=== PATIENT | male | born 1965 | race Caucasian/White ===

== ENCOUNTER 2016-11-13 06:40 | Day surgery (SDC) | payer OTHER ==
[2016-11-09 12:03] VITALS: BMI 30.8
[~2016-11-13 06:40] MED LIST: LIDOCAINE HCL 1% PRESERVATIVE FREE - 30ML VIAL IO ONE; LIDOCAINE HCL 4% PRESERVE-FREE 5 ML AMP TP ONE
[2016-11-13 07:06] VITALS: PULSE 65; TEMP 97.8
[2016-11-13] MEDS ORDERED: FLURBIPROFEN 0.03% OPHTH SOLN 2.5 ML BOTTLE ONE (07:18)
[2016-11-13] MEDS ORDERED: CYCLOPENTOLATE HCL 1% OPHTH SOLN 2 ML BOTTLE ONE (07:19)
[2016-11-13] MEDS ORDERED: CIPROFLOXACIN 0.3% EYE DROPS 5 ML BOTTLE ONE (07:19)
[2016-11-13] MEDS ORDERED: TROPICAMIDE 1% OPHTH SOLN 15 ML BOTTLE ONE (07:19)
[2016-11-13] MEDS ORDERED: PHENYLEPHRINE 2.5% OPHTH SOLN 15 ML BOTTLE ONE (07:19)
[2016-11-13] MEDS ORDERED: EPINEPHrine/PF 1 MG/1 ML (1:1,000) AMPULE ONE (07:22)
[2016-11-13] MEDS ORDERED: LIDOCAINE HCL 4% PRESERVE-FREE 5 ML AMP ONE (07:22)
[2016-11-13] MEDS ORDERED: POVIDONE-IODINE 5% OPHTHALMIC PREP 30 ML SOLUTION ONE (07:23)
[2016-11-13] MEDS ORDERED: BSS (NA/CA/MG/K) BALANCED SALT SOLUTION OPHTH SOLN 15 ML BOTTLE ONE (07:23)
[2016-11-13] MEDS: CYCLOPENTOLATE HCL 1% OPHTH SOLN 2 ML BOTTLE OP SCH ×2 (07:26→07:33)
[2016-11-13] MEDS: CIPROFLOXACIN HCL 0.3% OPHTH 2.5ML BOTTLE OP SCH ×2 (07:26→07:33)
[2016-11-13] MEDS ORDERED: LIDOCAINE HCL/PF 1% SDV 5ML VIAL ONE (07:26)
[2016-11-13] MEDS: PHENYLEPHRINE 2.5% OPHTH SOLN 15 ML BOTTLE OP SCH ×2 (07:27→07:33)
[2016-11-13] MEDS: FLURBIPROFEN 0.03% OPHTH SOLN 2.5 ML BOTTLE OP SCH ×2 (07:27→07:33)
[2016-11-13] MEDS: TROPICAMIDE 1% OPHTH SOLN 15 ML BOTTLE OP SCH ×2 (07:27→07:34)
[2016-11-13] MEDS ORDERED: LIDOCAINE HCL 4% PRESERVE-FREE 5 ML AMP TP ONE (08:19)
[2016-11-13] MEDS ORDERED: POVIDONE-IODINE 5% OPHTHALMIC PREP 30 ML SOLUTION OD ONE (08:20)
[2016-11-13] MEDS ORDERED: LIDOCAINE HCL 1% PRESERVATIVE FREE - 30ML VIAL IO ONE (08:24)
[2016-11-13] MEDS ORDERED: CHONDROITIN SU A/HYALUR SOD 1 KIT IO ONE ×2 (08:26→08:42)
[2016-11-13 10:34] VITALS: BP 107/65
--- NOTE | 2016-11-14 08:41 | SPEC ---
DATE OF OPERATION: 11/13/2016 PREOPERATIVE DIAGNOSIS: Cataract, right eye. POSTOPERATIVE DIAGNOSIS: Cataract, right eye. OPERATION: Planned phacoemulsification with posterior chamber lens implantation, right eye. SURGEON: Meli Roth M.D. WINDOW SYSTEMS ADMINISTRATOR: None. ANESTHESIA: Topical. COMPLICATIONS: None. PROCEDURE: The patient was taken to the operating room and anesthesia began with intravenous fluids and sedation. The patient then received topical anesthesia on the right eye. The patient was prepped and draped in the usual manner for sterile ophthalmic surgery. A speculum was inserted into the right eye. A self-sealing stab incision was made at the 3:00 and 10:00 positions. Viscoat was inserted into the anterior chamber. Using a 2.65 mm keratome, a self-sealing incision was made in temporal location into the anterior chamber. A 360-degree continuous capsulorrhexis was then performed. The nucleus was dislocated with hydrodissection. The nucleus was then removed from the eye with phacoemulsification with posterior capsule remaining intact. Irrigation and aspiration removed the remaining cortex from the eye. The capsule was polished. A posterior chamber lens model [id number] diopters was inserted in the bag and well centered. The remaining Viscoat was removed from the eye. There were no sutures placed. The wound was self-sealing. Stromal hydration was performed for increased insurance of wound closure. The patient tolerated and completed the procedure in an uncomplicated fashion and went to the ambulatory unit in stable condition. MELI ROTH M.D. MIGUELINA/[id number]
== END 2016-11-13 10:20 | disposition home or self-care (01) ==
LOC: JASU-SURG 06:40
PROVIDERS: ATTEND Ophthalmology
PROC: 08RK3JZ Replacement of Left Lens with Synthetic Substitute, Percutaneous Approach (ICD-10-PCS; principal; 2016-11-13 08:00)
DX: H26.9 Unspecified cataract (principal)

== ENCOUNTER 2018-09-29 19:02 | Inpatient (IN) | payer OTHER ==
--- NOTE | 2018-09-29 19:18 | PDOC ---
History of Present Illness - General Chief Complaint: SIRS, Suspected/Possible Stated Complaint: FLU LIKE SYMPTOM Time Seen by Provider: 09/29/18 19:17 Past History - Past Medical History Allergies/Adverse Reactions: Allergies Allergy/AdvReac Type Severity Reaction Status Date / Time amlodipine besylate Allergy Severe Closed Verified 09/29/18 19:14 [From [facility]] throat/Swollen lips Home Medications: Ambulatory Orders Amiodarone HCl 200 mg PO DAILY 10/12/16 Atorvastatin Ca [Lipitor] 40 mg PO HS 10/12/16 Carvedilol [Coreg] 25 mg PO BID 10/12/16 Digoxin 125 mcg PO DAILY 10/12/16 Furosemide [Lasix] 80 mg PO DAILY 10/12/16 Losartan Potassium 100 mg PO DAILY 10/12/16 Methotrexate [Mexate -] 2.5 mg PO Q7D 10/12/16 Rivaroxaban [Xarelto -] 15 mg PO DAILY 10/12/16 Spironolactone 50 mg PO BID 10/12/16 predniSONE [Deltasone -] 2.5 mg PO DAILY 10/12/16 Insulin Degludec [Tresiba Flextouch U-100] 45 unit SQ DAILY 11/13/16 Insulin Glulisine [Apidra Solostar] 20 unit SQ UTDICT 11/13/16 Anemia: No Asthma: No Cancer: No Cardiac Disorders: Yes (HEART ATTACK PER PT) CVA: No COPD: No CHF: (NON-ISCHEMIC CARDIOMYOPATHY) Dementia: No Diabetes: Yes GI Disorders: No Disorders: No HTN: Yes (MITRAL REGURG,PVCS WITH OCC NSVT) Hypercholesterolemia: Yes (ICD 11/12,ATRIAL FIB) Liver Disease: No Seizures: No Thyroid Disease: No - Surgical History Abdominal Surgery: No Appendectomy: No Cardiac Surgery: Yes (PACEMAKER-PT STATED HE HAS A PACEMAKER-UNAWARE OF ICD) Cholecystectomy: No Neurologic Surgery: No Orthopedic Surgery: No - Suicide/Smoking/Psychosocial Hx Smoking History: Never smoked Hx Alcohol Use: No Drug/Substance Use Hx: No Substance Use Type: None Hx Substance Use Treatment: No *Physical Exam - Vital Signs Last Vital Signs Temp Pulse Resp BP Pulse Ox 99.3 F 120 H 24 H 83/64 L 95 09/29/18 19:08 09/29/18 19:08 09/29/18 19:08 09/29/18 19:08 09/29/18 19:08 Moderate Sedation - Procedure Monitoring Vital Signs: Procedure Monitoring Vital Signs Temperature 99.3 F 09/29/18 19:08 Pulse Rate 120 H 09/29/18 19:08 Respiratory Rate 24 H 09/29/18 19:08 Blood Pressure 83/64 L 09/29/18 19:08 O2 Sat by Pulse Oximetry (%) 95 09/29/18 19:08 *DC/Admit/Observation/Transfer - Referrals Referrals: Portillo Ashford MD [Primary Care Provider] - - Patient Instructions - Post Discharge Activity
--- NOTE | 2018-09-29 19:31 | PDOC ---
Attending Attestation - Resident Resident Name: Stoney Limon - ED Attending Attestation I have performed the following: I have examined & evaluated the patient, The case was reviewed & discussed with the resident, I agree w/resident's findings & plan, Exceptions are as noted - HPI HPI: 09/29/18 19:30 53-year-old male presents with 1 week of flulike symptoms. He has complaint of nausea, vomiting, cough and shortness of breath -Insulin-dependent diabetic and states his glucose has been high - Physicial Exam PE: 09/29/18 19:31 well nourished ,well-developed 53-year-old male presents with low-grade fever, hypotension and tachycardia head ncat eyes jeffy eomi neck supple lungs scattered wheezing cvs tachycardia abd left abd tenderenss ext no pitting edema skin warm and dry neuro alert,moving all extremities psych appropriate 09/29/18 19:33 09/29/18 19:51 09/29/18 19:56 - Medical Decision Making 09/29/18 20:14 Differential diagnosis includes sepsis, influenza, pneumonia, DKA, ACS. Sepsis workup w IV fluids, lactic acid, blood culture, urine culture and flu swabs sent. Chest x-ray, troponin, chemistry, CBC pending EKG is sinus tachycardia at 118 bpm, left bundle-branch block. I can find no priors for comparison 09/29/18 22:14 53 yo male has not been feeling well for past 2 weeks . He has not been able to eat but now states he is hungry -he had complaint of bodyaches,headache cough,fever,nausea,vomiting 09/29/18 22:42 with further questioning the family did say he had CKD and was followed by Dr Dangelo Wagoner -spoke with Dr Martin who said that this pt does have CKD -in reviewing an old surgical chart from 2017 it mentions a creatinine of 2.7 09/30/18 00:12 UA negative cxr no obvious infiltrates, ct chest bilateral nodules /consolidations negative strep negative influenza cbc platelets only 42,000 and wbc 2.1, hgb=9.8. He has a history of anemia 09/30/18 01:19 ct scan of chest revealed bilateral lung nodules/atypical infection.There are small nodular densities left upper, left lower, right middle and right lower lobes with several small consolidations,probably atypical infection -enlarged mediastinal lymph nodes, no pleural effusions,left chest ICD CT scan abd/pelvis: No sbo, no free fluid, no free air, normal appendix. no ureterolithoasis or obstructive uropathy. Unremarkab;le pancreas,Gallbladder sludge,small umbilical and infraumbilical hernias containing fat -despite 2 liter of IVF the pt remains hypotensive and a central line IJ was placed to give pressors if needed.Case discussed w Dr Zapata and pt to be admitted ICU pt admitted to ICU 09/30/18 01:43
[2018-09-29] MEDS ORDERED: ALBUTEROL SO4 2.5/IPRATROPIUM 0.5 INH SOL 3 ML VIAL.NEB. NEB ONE ×2 (19:43→19:57)
[2018-09-29] MEDS ORDERED: SODIUM CHLORIDE 1,000 ML IV STA (19:56)
[2018-09-29] MEDS ORDERED: ONDANSETRON 4 MG/2 ML VIAL IVPUSH ONE (19:56)
[2018-09-29 20:01] LABS: BASO % 0.8 % (0-2.0); EOS % 0.9 % (0-4.5); HEMATOCRIT 28.7 % (35.4-49); HEMOGLOBIN 9.8 GM/dL (11.7-16.9); LYMPH % 19.5 % (8-40); MCH 32.9 pg (25.7-33.7); MCHC 34.2 g/dl (32.0-35.9); MEAN CELL VOLUME 96.3 fl (80-96); MEAN PLT VOLUME 8.3 fl (7.5-11.1); MONO % 3.4 % (3.8-10.2); NEUT % 75.4 % (42.8-82.8); PLATELET COUNT 42 K/MM3 (134-434); RBC 2.98 M/mm3 (4.00-5.60); WHITE BLOOD COUNT 2.1 K/mm3 (4.0-10.0)
[2018-09-29] MEDS ORDERED: ONDANSETRON 4 MG/2 ML VIAL ONE (20:05)
[2018-09-29 20:08] LABS: VENOUS PH 7.28 (7.32-7.42); VENOUS PO2 38.9 mmHg (28-48)
[2018-09-29] MEDS ORDERED: ACETAMINOPHEN 1000 MG/100 ML VIAL (NON FORMULARY) IVPB ONE (20:09)
[2018-09-29] MEDS ORDERED: ACETAMINOPHEN INJECTION 100 ML IVPB ONE (20:12)
--- NOTE | 2018-09-29 20:12 | PDOC ---
History of Present Illness <DavidJamebrant Powers - Last Filed: 09/30/18 02:08> - General History Source: Patient Exam Limitations: No Limitations - History of Present Illness Initial Comments: 09/29/18 20:07 53 yo male pmh of IDDM, paroxsysmal Afib (on xeralto, pace maker) HTN, HLD, CHF , CKD (last known Cr 2.7 from 2017) presents to the ED for 2 weeks of non productive cough, fevers, diffuse body aches, headaches, NB/NB vomiting, loose stools and poor appetite. States the symptoms started and persisted with the same intensity over 2 weeks with poor appetite and only admits to eating a few times with associated abdominal bloating after meals. States he is in the ED only because his forced him to come. Pt denies recent travel or sick contacts. Denies CP, difficulty breathing, abdominal tenderness <Stoney Limon - Last Filed: 10/16/18 00:26> - General Chief Complaint: SIRS, Suspected/Possible Stated Complaint: FLU LIKE SYMPTOM Time Seen by Provider: 09/29/18 19:17 Past History <DavidJamebrant Powers - Last Filed: 09/30/18 02:08> - Past Medical History Anemia: No Asthma: No Cancer: No Cardiac Disorders: Yes (HEART ATTACK PER PT) CVA: No COPD: No CHF: (NON-ISCHEMIC CARDIOMYOPATHY) Dementia: No Diabetes: Yes GI Disorders: No Disorders: No HTN: Yes (MITRAL REGURG,PVCS WITH OCC NSVT) Hypercholesterolemia: Yes (ICD 11/12,ATRIAL FIB) Liver Disease: No Seizures: No Thyroid Disease: No - Surgical History Abdominal Surgery: No Appendectomy: No Cardiac Surgery: Yes (PACEMAKER-PT STATED HE HAS A PACEMAKER-UNAWARE OF ICD) Cholecystectomy: No Neurologic Surgery: No Orthopedic Surgery: No - Suicide/Smoking/Psychosocial Hx Smoking History: Never smoked Information on smoking cessation initiated: No Hx Alcohol Use: No Drug/Substance Use Hx: No Substance Use Type: None Hx Substance Use Treatment: No <Stoney Limon - Last Filed: 10/16/18 00:26> - Past Medical History Allergies/Adverse Reactions: Allergies Allergy/AdvReac Type Severity Reaction Status Date / Time amlodipine besylate Allergy Severe Closed Verified 09/29/18 19:14 [From [facility]] throat/Swollen lips Home Medications: Ambulatory Orders Amiodarone HCl 200 mg PO DAILY 10/12/16 Carvedilol [Coreg] 25 mg PO BID 10/12/16 Rivaroxaban [Xarelto] 15 mg PO DAILY 10/12/16 Spironolactone 25 mg PO DAILY 10/12/16 Insulin Degludec [Tresiba Flextouch U-100] 40 unit SQ DAILY 11/13/16 Colchicine 0.6 mg PO DAILY 09/30/18 Rosuvastatin [Crestor -] 10 mg PO DAILY 09/30/18 Sacubitril/Valsartan [Entresto 49 mg-51 mg Tablet] 1 each PO BID 09/30/18 Doxycycline Hyclate [Vibramycin -] 100 mg PO BID@1000,1800 #14 capsule 10/06/18 Polyethylene Glycol 3350 [Miralax 119 gm Btl -] 17 gm PO BID bottle 10/06/18 Rosuvastatin [Crestor -] 10 mg PO HS tablet 10/06/18 Review of Systems - Review of Systems Constitutional: Yes: Chills, Fever, Malaise, Other (muscle aches ) HEENTM: Yes: Other (head) ABD/GI: Yes: Diarrhea, Nausea, Poor Appetite, Vomiting. No: Constipated : No: Burning, Dysuria, Frequency, Flank Pain, Hematuria, Incontinence, Pain Integumentary: No: Bruising, Rash Neurological: No: Numbness, Paresthesia, Weakness <Stoney Limon - Last Filed: 10/16/18 00:26> *Physical Exam - Vital Signs Last Vital Signs Temp Pulse Resp BP Pulse Ox 103.9 F H 92 H 20 85/60 L 98 09/29/18 20:32 09/30/18 00:17 09/30/18 00:17 09/30/18 00:17 09/30/18 00:17 <Iman Hernandez - Last Filed: 09/30/18 02:08> - Vital Signs Last Vital Signs Temp Pulse Resp BP Pulse Ox 99.3 F 120 H 18 87/63 L 97 09/29/18 19:08 09/29/18 20:03 09/29/18 20:03 09/29/18 20:03 09/29/18 20:03 - Physical Exam General Appearance: Yes: Nourished, Appropriately Dressed, Apparent Distress ( lethargic and somnolent). No: Alcohol on Breath HEENT: positive: EOMI. negative: ROLA, Scleral Icterus (R), Scleral Icterus (L) , Tonsillar Exudate, Tonsillar Erythema, TM Erythema, Excessive drooling Respiratory/Chest: positive: Wheezing. negative: Respiratory Distress, Accessory Muscle Use, Crackles Cardiovascular: positive: Regular Rhythm, S1, S2, Tachycardia. negative: Edema , JVD, Murmur Vascular Pulses: Dorsalis-Pedis (R): 3+, Doralis-Pedis (L): 3+ Gastrointestinal/Abdominal: positive: Normal Bowel Sounds, Flat, Soft. negative : Tender, Pulsatile Mass, Distended, Guarding, Rebound, Tenderness Musculoskeletal: positive: Normal Inspection Integumentary: positive: Normal Color, Dry, Warm Neurologic: positive: Fully Oriented, Alert, Normal Mood/Affect, Normal Response <Stoney Limon - Last Filed: 10/16/18 00:26> Moderate Sedation - Procedure Monitoring Vital Signs: Procedure Monitoring Vital Signs Temperature 103.9 F H 09/29/18 20:32 Pulse Rate 92 H 09/30/18 00:17 Respiratory Rate 20 09/30/18 00:17 Blood Pressure 85/60 L 09/30/18 00:17 O2 Sat by Pulse Oximetry (%) 98 09/30/18 00:17 <Iman Hernandez - Last Filed: 09/30/18 02:08> - Procedure Monitoring Vital Signs: Procedure Monitoring Vital Signs Temperature 99.3 F 09/29/18 19:08 Pulse Rate 120 H 09/29/18 20:03 Respiratory Rate 18 09/29/18 20:03 Blood Pressure 87/63 L 09/29/18 20:03 O2 Sat by Pulse Oximetry (%) 97 09/29/18 20:03 <Stoney Limon - Last Filed: 10/16/18 00:26> Procedures - Central Line Central Line Lumen: triple Central Line Position: internal jugular (R) Anesthesia: 1% Lidocaine Complications: none Post Central Line Insertion: sutured, good blood return, position confirmed w/ CXR <Stoney Limon - Last Filed: 10/16/18 00:26> ED Treatment Course - LABORATORY CBC & Chemistry Diagram: 09/29/18 19:50 02/18/19 19:50 - ADDITIONAL ORDERS Additional order review: Laboratory Results 09/30/18 09/29/18 09/29/18 00:50 22:00 22:00 PT with INR INR PTT (Actin FS) Anticoagulation Therapy No Result Required. Puncture Site Right radial ABG pH 7.38 ABG pCO2 at Pt Temp 32.5 L ABG pO2 at Pt Temp 83.6 ABG HCO3 18.6 L ABG O2 Sat (Measured) 96.2 ABG O2 Content 10.5 L ABG Base Excess -5.4 L Jass Test Positive VBG pH POC VBG pCO2 POC VBG pO2 Mixed VBG HCO3 Carboxyhemoglobin 1.0 Methemoglobin 0.2 L O2 Delivery Device N/c Oxygen Flow Rate 2l Vent Mode No Result Required. Vent Rate No Result Required. Mechanical Rate No Result Required. Pressure Support Vent No Result Required. Sodium Potassium Chloride Carbon Dioxide Anion Gap BUN Creatinine Creat Clearance w eGFR Random Glucose Lactic Acid Calcium Total Bilirubin AST ALT Alkaline Phosphatase Troponin I Total Protein Albumin Urine Color Urine Appearance Urine pH Ur Specific Hodge Urine Protein Urine Glucose (UA) Urine Ketones Urine Blood Urine Nitrite Urine Bilirubin Urine Urobilinogen Ur Leukocyte Esterase Urine Osmolality 318 Ur Random Sodium 28 L Ur Random Chloride 55 L Ur Random Urea Nitrogn 381 Urine Creatinine 141.0 Stool Occult Blood Digoxin Acetone, Qual 09/29/18 09/29/18 09/29/18 22:00 21:15 20:19 PT with INR INR PTT (Actin FS) Anticoagulation Therapy Puncture Site ABG pH ABG pCO2 at Pt Temp ABG pO2 at Pt Temp ABG HCO3 ABG O2 Sat (Measured) ABG O2 Content ABG Base Excess Jass Test VBG pH POC VBG pCO2 POC VBG pO2 Mixed VBG HCO3 Carboxyhemoglobin Methemoglobin O2 Delivery Device Oxygen Flow Rate Vent Mode Vent Rate Mechanical Rate Pressure Support Vent Sodium Potassium Chloride Carbon Dioxide Anion Gap BUN Creatinine Creat Clearance w eGFR Random Glucose Lactic Acid 0.8 Calcium Total Bilirubin AST ALT Alkaline Phosphatase Troponin I Total Protein Albumin Urine Color Yellow Urine Appearance Clear Urine pH 5.0 Ur Specific Hodge 1.012 Urine Protein Negative Urine Glucose (UA) Negative Urine Ketones Negative Urine Blood Negative Urine Nitrite Negative Urine Bilirubin Negative Urine Urobilinogen Negative Ur Leukocyte Esterase Negative Urine Osmolality Ur Random Sodium Ur Random Chloride Ur Random Urea Nitrogn Urine Creatinine Stool Occult Blood Digoxin < 0.06 L Acetone, Qual 02/18/19 02/18/19 02/18/19 20:16 20:00 19:50 PT with INR INR PTT (Actin FS) Anticoagulation Therapy Puncture Site ABG pH ABG pCO2 at Pt Temp ABG pO2 at Pt Temp ABG HCO3 ABG O2 Sat (Measured) ABG O2 Content ABG Base Excess Jass Test VBG pH 7.28 L POC VBG pCO2 46.0 POC VBG pO2 38.9 Mixed VBG HCO3 21.0 Carboxyhemoglobin Methemoglobin O2 Delivery Device Oxygen Flow Rate Vent Mode Vent Rate Mechanical Rate Pressure Support Vent Sodium Potassium Chloride Carbon Dioxide Anion Gap BUN Creatinine Creat Clearance w eGFR Random Glucose Lactic Acid Calcium Total Bilirubin AST ALT Alkaline Phosphatase Troponin I Total Protein Albumin Urine Color Urine Appearance Urine pH Ur Specific Hodge Urine Protein Urine Glucose (UA) Urine Ketones Urine Blood Urine Nitrite Urine Bilirubin Urine Urobilinogen Ur Leukocyte Esterase Urine Osmolality Ur Random Sodium Ur Random Chloride Ur Random Urea Nitrogn Urine Creatinine Stool Occult Blood Negative Digoxin Acetone, Qual Negative 09/29/18 09/29/18 09/29/18 19:50 19:50 19:50 PT with INR 12.80 INR 1.08 PTT (Actin FS) 30.5 Anticoagulation Therapy Puncture Site ABG pH ABG pCO2 at Pt Temp ABG pO2 at Pt Temp ABG HCO3 ABG O2 Sat (Measured) ABG O2 Content ABG Base Excess Jass Test VBG pH POC VBG pCO2 POC VBG pO2 Mixed VBG HCO3 Carboxyhemoglobin Methemoglobin O2 Delivery Device Oxygen Flow Rate Vent Mode Vent Rate Mechanical Rate Pressure Support Vent Sodium 139 Potassium 4.4 Chloride 107 Carbon Dioxide 22 Anion Gap 10 BUN 42 H Creatinine 3.4 H Creat Clearance w eGFR 18.97 Random Glucose 100 Lactic Acid Calcium 8.0 L Total Bilirubin 0.7 AST 35 ALT 60 Alkaline Phosphatase 119 H Troponin I 0.06 H Total Protein 6.6 Albumin 3.2 L Urine Color Urine Appearance Urine pH Ur Specific Hodge Urine Protein Urine Glucose (UA) Urine Ketones Urine Blood Urine Nitrite Urine Bilirubin Urine Urobilinogen Ur Leukocyte Esterase Urine Osmolality Ur Random Sodium Ur Random Chloride Ur Random Urea Nitrogn Urine Creatinine Stool Occult Blood Digoxin Acetone, Qual 09/29/18 19:50 RBC 2.98 L MCV 96.3 H MCHC 34.2 RDW 17.0 H MPV 8.3 Neutrophils % 75.4 Lymphocytes % 19.5 Monocytes % 3.4 L Eosinophils % 0.9 Basophils % 0.8 - Medications Given in the ED: ED Medications Discontinued Medications Generic Name Dose Route Start Last Admin Trade Name Ariana PRN Reason Stop Dose Admin Acetaminophen 1,000 mg 09/29/18 20:09 09/29/18 20:32 Ofirmev Injection - IVPB 09/29/18 20:10 1,000 mg ONCE ONE Administration Acetaminophen 1,000 mg 09/30/18 00:08 09/30/18 01:06 Ofirmev Injection - IVPB 09/30/18 00:09 1,000 mg ONCE ONE Administration Albuterol/Ipratropium 1 amp 09/29/18 19:57 09/29/18 20:11 Duoneb - NEB 09/29/18 19:58 1 amp ONCE ONE Administration Sodium Chloride 1,000 mls @ 1,000 mls/hr 09/29/18 19:56 09/29/18 20:11 Normal Saline - IV 09/29/18 20:55 1,000 mls/hr ASDIR STA Administration Vancomycin HCl 1,000 mg/ 250 mls @ 166.667 mls/hr 09/29/18 20:42 09/29/18 22: 05 Dextrose IVPB 09/29/18 22:11 166.667 mls/hr ONCE ONE Administration Protocol Piperacillin Sod/Tazobactam 100 mls @ 200 mls/hr 09/29/18 20:42 09/29/18 22: 05 Sod 4.5 gm/ Dextrose IVPB 09/29/18 21:11 200 mls/hr ONCE ONE Administration Protocol Ondansetron HCl 4 mg 09/29/18 19:56 09/29/18 20:11 Zofran Injection IVPUSH 09/29/18 19:57 4 mg ONCE ONE Administration <Iman Hernandez - Last Filed: 09/30/18 02:08> - LABORATORY CBC & Chemistry Diagram: 10/06/18 06:35 10/06/18 06:35 - RADIOLOGY Radiology Studies Ordered: Category Date Time Status CHEST X-RAY PORTABLE* [RAD] Stat Radiology 09/29/18 19:36 Ordered <Stoney Limon - Last Filed: 10/16/18 00:26> Medical Decision Making - Critical Care Time Total Critical Care Time (minutes): 120 Critical Care Statement: The care of this patient involved high complexity decision making to prevent further life threatening deterioration of the patient 's condition and/or to evaluate & treat vital organ system(s) failure or risk of failure. <Iman Hernandez - Last Filed: 09/30/18 02:08> - Medical Decision Making 53 yo male presents to ED with 2 weeks of flu like symptoms. Vitals show elevated HR and hypotension Sepsis work up underway along with fluid resuscitation Pt continues to be hypotensive in the ED after fluids, Central line placed and ICU consulted WBC 2.[address] likely positive for atypical infection and source of symptoms ICU accepts pt <Stoney Limon - Last Filed: 10/16/18 00:26> *DC/Admit/Observation/Transfer - Discharge Dispostion Decision to Admit order: Yes <Iman Hernandez - Last Filed: 09/30/18 02:08> - Discharge Dispostion Decision to Admit order: Yes <Stoney Limon - Last Filed: 10/16/18 00:26> Diagnosis at time of Disposition: Multiple nodules of lung Fever Qualifiers: Fever type: unspecified Qualified Code(s): R50.9 - Fever, unspecified Hypotension Qualifiers: Hypotension type: other hypotension type Qualified Code(s): I95.89 - Other hypotension Anemia Qualifiers: Anemia type: due to chronic kidney disease Chronic kidney disease stage: unspecified stage Qualified Code(s): N18.9 - Chronic kidney disease, unspecified Chronic kidney disease Qualifiers: Chronic kidney disease stage: unspecified stage Qualified Code(s): N18.9 - Chronic kidney disease, unspecified Diabetes Qualifiers: Diabetes mellitus type: type 1 Diabetes mellitus complication status: with kidney complications Diabetes mellitus complication detail: with chronic kidney disease Chronic kidney disease stage: unspecified stage Qualified Code(s): E10.22 - Type 1 diabetes mellitus with diabetic chronic kidney disease - Discharge Dispostion Condition at time of disposition: Fair
[2018-09-29 20:29] LABS: INR 1.08 (0.83-1.09); PROTHROMBIN TIME (PATIENT) 12.8 SEC (9.7-13.0)
[2018-09-29 20:32] LABS: ACTIVATED PTT 30.5 SECONDS (25.2-36.5)
[2018-09-29 20:37] LABS: ALBUMIN 3.2 g/dl (3.4-5.0); ALK PHOS 119 U/L (45-117); ANION GAP 10 MMOL/L (8-16); BILIRUBIN,TOTAL 0.7 mg/dL (0.2-1); BLOOD UREA NITROGEN 42 mg/dL (7-18); CHLORIDE 107 mmol/L (98-107); CO2 22 mmol/L (21-32); CREATININE 3.4 mg/dL (0.55-1.3); GLUCOSE,RANDOM 100 mg/dL (74-106); POTASSIUM 4.4 mmol/L (3.5-5.1); SGOT/AST 35 U/L (15-37); SGPT/ALT 60 U/L (13-61); SODIUM 139 mmol/L (136-145); TOT PROT 6.6 g/dl (6.4-8.2)
[2018-09-29] MEDS ORDERED: PIPERACILLIN/TAZOB 4.5 GM 4.5 GM in DEXTROSE 5%-WATER 100 ML IVPB ONE (20:42)
[2018-09-29] MEDS ORDERED: VANCOMYCIN 1,000 MG in DEXTROSE 5%-WATER - 250 ML IVPB ONE (20:42)
[2018-09-29] MEDS ORDERED: PIPERACILLIN/TAZOB 4.5 GM 4.5 GM/100 ML BAG IVPB ONE (21:00)
[2018-09-29] MEDS ORDERED: VANCOMYCIN 1 GRAM (PRE-DOCKED) 1,000 MG/250 ML BAG IVPB ONE (21:00)
[2018-09-29 23:18] LABS: URINE APPEARANCE CLEAR; URINE BILIRUBIN NEGATIVE (<2.0 mg/dL); URINE COLOR YELLOW; URINE GLUCOSE (UA) NEGATIVE (NEGATIVE); URINE KETONE NEGATIVE (NEGATIVE); URINE LEUK ESTERASE NEGATIVE (NEGATIVE); URINE NITRITE NEGATIVE (NEGATIVE); URINE PROTEIN NEGATIVE (NEGATIVE); URINE UROBILINOGEN NEGATIVE mg/dL (0.2-1.0)
[2018-09-30] MEDS ORDERED: ACETAMINOPHEN 1000 MG/100 ML VIAL (NON FORMULARY) IVPB ONE (00:08)
[2018-09-30 01:00] LABS: ARTERIAL BLD GAS O2 SATURATION 96.2 % (90-98.9); ARTERIAL BLOOD GAS BASE EXCESS -5.4 meq/l (-2-2); ARTERIAL BLOOD GAS PCO2 32.5 mmHg (35-45); ARTERIAL BLOOD GAS PO2 83.6 mmHg (80-100); ARTERIAL BLOOD GAS pH 7.38 (7.35-7.45)
[2018-09-30 01:01] LABS: ALLENS TEST POSITIVE
[2018-09-30] MEDS ORDERED: ACETAMINOPHEN INJECTION 100 ML IVPB ONE (01:03)
--- NOTE | 2018-09-30 01:33 | CONSULT ---
Consult Consult Specialty:: ICU Reason for Consultation:: sepsis - History of Present Illness Chief Complaint: cough and weakness. History of Present Illness: 53 yo M with significant PMhx of CHF(s/p ICD),AFIB (Xarelto), CAD, IDDM, CKD and gout presents with 2 week history of productive cough and weakness. He states for the past 2 weeks he has had cough productive of dark yellow sputum with associated subjective fever, chills, and generalized body aches. He endorses SOB, nausea, NBNB vomiting, diarrhea and STONE. He states that he comes in today because his forced him to come. He denies any sick contacts at home. In ED he was found to be hypotensive (MAP 50) after 2L IVF given. Given fluids cautiously because of CHF and CKD history. Central line was placed to begin Norepinephrine for BP support if needed and check CVP . He was hospitalized last year CHF? "Water in lungs"at [facility]. He has poor follow up. Patient brought to ICU for further management. Denies CP, ARSHAD,SOB, abdominal pain, or palpitations at this time. - History Source History Provided By: Patient Limitations to Obtaining History: Language Barrier (german speaking.) - Past Medical History Cardio/Vascular: Yes: AFIB, CAD, CHF, HTN, Hyperlipdemia Renal/: Yes: Renal Failure (hasnt seen general science teacher in several years ) Heme/Onc: Yes: Anemia Rheumatology: Yes: Gout Endocrine: Yes: Diabetes Mellitus - Past Surgical History Past Surgical History: Yes: Cataract Removal, Permanent Pacemaker (2011) - Alcohol/Substance Use Hx Alcohol Use: No - Smoking History Smoking history: Former smoker Have you smoked in the past 12 months: No If you are a former smoker, when did you quit?: 2008 - Social History Usual Living Arrangement: With Spouse ADL: Independent History of Recent Travel: No Home Medications - Allergies Allergies/Adverse Reactions: Allergies Allergy/AdvReac Type Severity Reaction Status Date / Time amlodipine besylate Allergy Severe Closed Verified 09/29/18 19:14 [From [facility]] throat/Swollen lips - Home Medications Home Medications: Ambulatory Orders Amiodarone HCl 200 mg PO DAILY 10/12/16 Atorvastatin Ca [Lipitor] 40 mg PO HS 10/12/16 Carvedilol [Coreg] 25 mg PO BID 10/12/16 Digoxin 125 mcg PO DAILY 10/12/16 Furosemide [Lasix] 80 mg PO DAILY 10/12/16 Losartan Potassium 100 mg PO DAILY 10/12/16 Methotrexate [Mexate -] 2.5 mg PO MO 10/12/16 Rivaroxaban [Xarelto -] 15 mg PO DAILY 10/12/16 Spironolactone 50 mg PO BID 10/12/16 predniSONE [Deltasone -] 2.5 mg PO DAILY 10/12/16 Insulin Degludec [Tresiba Flextouch U-100] 40 unit SQ DAILY 11/13/16 Exenatide Microspheres [Bydureon Pen] 2 mg SQ TH 09/29/18 Furosemide [Lasix] 40 mg PO HS 09/29/18 Family Disease History - Family Disease History Family Disease History: Diabetes: Sister, Heart Disease: Mother, Sister, CA: Brother (Bone), Other: Father (Liver) Review of Systems - Review of Systems Constitutional: reports: Chills, Diaphoresis, Fever, Lethargy, Malaise, Weakness Eyes: reports: No Symptoms HENT: reports: No Symptoms Neck: reports: No Symptoms Cardiovascular: reports: Shortness of Breath Respiratory: reports: Cough, SOB on Exertion Gastrointestinal: reports: Diarrhea, Nausea, Vomiting Genitourinary: reports: No Symptoms Musculoskeletal: reports: Other (body aches) Neurological: reports: No Symptoms Endocrine: reports: No Symptoms Hematology/Lymphatic: reports: No Symptoms Psychiatric: reports: No Symptoms Physical Exam Vital Signs: Vital Signs Temperature 103.9 F H 09/29/18 20:32 Pulse Rate 92 H 09/30/18 00:17 Respiratory Rate 20 09/30/18 00:17 Blood Pressure 85/60 L 09/30/18 00:17 O2 Sat by Pulse Oximetry (%) 98 09/30/18 00:17 Constitutional: Yes: Calm, Diaphoresis, Obese Eyes: Yes: Conjunctiva Clear, EOM Intact HENT: Yes: Atraumatic, Normocephalic Neck: Yes: Supple, Trachea Midline Cardiovascular: Yes: Tachycardia, S1, S2. No: JVD, Gallop Respiratory: Yes: Cough, Diminished, Poor Air Entry, Rhonchi (>right base), Wheezes (>right base) Gastrointestinal: Yes: Normal Bowel Sounds, Soft, Abdomen, Obese, Vomiting. No : Hepatomegaly, Tenderness Extremities: Yes: WNL Edema: No Peripheral Pulses WNL: Yes Neurological: Yes: Alert, Oriented, Cran Nerves II-XII Intact ...Motor Strength: WNL Psychiatric: Yes: Alert, Oriented Labs: CBC, BMP 09/29/18 19:50 09/29/18 19:50 Imaging - Results Chest X-ray: Report Reviewed (no obvious infiltrates), Image Reviewed Cat Scan: Report Reviewed (chest revealed bilateral lung nodules/atypical infection.There are small nodular densities left upper, left lower, right middle and right lower lobes with several small consolidations,probably atypical infection), Image Reviewed Ultrasound: Report Reviewed, Image Reviewed EKG: Report Reviewed, Image Reviewed (EKG is sinus tachycardia at 118 bpm, left bundle-branch block) Assessment/Plan A:53 yo M with significant PMhx of CHF(s/p ICD),AFIB (Xarelto), CAD, IDDM, CKD and gout presents with 2 week history of productive cough and weakness admitted to ICU for further management of sepsis and HD instability. P: NEURO: * Awake, alert and oriented * No pain at this time- Morphine 2mg Q6H PRN pain 6-10 * tylenol for fever and pain 1-5 PULM: * possible atypical PNA seen on CT chest. * started on Vanco/Zosyn- ID consulted. * supplemental O2 via NC PRN * maintain Spo2 >92% CV: * h/o CHF, CAD and AFIB * hold lasix ,Entresto and BB 2/2 hypotension- restart PRN. * hypotension management with Norepinephrine Drip PRN * maintain MAP >65 * will obtain CVP to check adequate fluid resuscitation with goal 8-12. however did not receive 30 cc/kg in ER 2/2 CHF and CKD concerns. * IVF with NS @75 ml/hr * digoxin level low but did not see it in his bag of home meds. * amiodarone for rhythm control @ 200mg PO daily. ID:. * sepsis 2/[address] chest. * blood, throat and urine cultures sent. * Flu and rapid strep (-) * CD4 count sent * dosed x1 with Vanco/ Zoysn in ER. * ID consulted. GI: * ADA diet * No PPI indicated. * Zofran PRN for nausea. RENAL: * ESTEVAN on CKD- last know Cr. 2.[address] Dangelo Wagoner as per Dr. Cardenas who reviewed some old records. * gentle hydration with NS * check serum and urine lytes and osm. will need to calculate Fe Urea as patient was taking Torsimide. * kidney US to r/o obstruction. HEME/ONC: * pancytopenia - 2/2 sepsis? * Lung nodules-biopsy? * consider heme consult. * maintain Hgb >8 given cardiac history. ENDO: * ISS with novolog ACHS * BGM ACHS * ADA diet. RHEUM: * Gout -on cochicine at home. FEN: * NS @75ml/hr * e-lytes WNL with repeat chemistry in AM and replete PRN. * ADA diet. PPx: * on xarelto for afib. DISPO: will continue to monitor in ICU. Critical Care Total Critical Care Time (in minutes): 65 Critical Care Statement: The care of this patient involved high complexity decision making to prevent further life threatening deterioration of the patient 's condition and/or to evaluate & treat vital organ system(s) failure or risk of failure.
[2018-09-30] MEDS ORDERED: LORazepam 2 MG/ML SDV VIAL ONE (01:43)
--- NOTE | 2018-09-30 02:26 | HP ---
CHIEF COMPLAINT: Flu-like Symptoms, Poor Appetite PCP: Dr. Portillo Ashford HISTORY OF PRESENT ILLNESS: This is a 53 y/o man with a past medical history of IDDM, Paroxysmal Afib (on Xarelto), s/p PPM, CAD [place] x4 (no Stent), CHF, HTN, HLD, CKD (last known Cr 2.7 from 2017). Who presents to the ED for productive cough -yellow phlegm, subjective fevers, diffuse body aches, headaches, NB/NB vomiting, loose stools and poor appetite x 2 weeks. Per ED records: Patient states the symptoms started and persisted with the same intensity over 2 weeks with poor appetite and only admits to eating a few times with associated abdominal bloating after meals. States he is in the ED only because his forced him to come. Patient denies recent travel or sick contacts. Denies CP, difficulty breathing, abdominal tenderness. Patient reports receiving the Influenza Vaccine 2 weeks ago. ER course was notable for: (1) Severe Sepsis- T Max 103.9, P 120, BP 83/64, BUN 34 (2) Chest CT- small nodular densities left lower, left upper, right middle, right lower lobe atypical infection (3) Abdominal CT- no acute pathology (4) Rapid Influenza- neg A+B (5) Platelets- 42 (6) Digoxin < 0.06 Recent Travel: None PAST MEDICAL HISTORY: See HPI PAST SURGICAL HISTORY: PPM Social History: Smoking: Former Alcohol: None Drugs: None Lives with spouse Family History: Allergies amlodipine besylate [From [facility]] Allergy (Severe, Verified 09/29/18 19:14) Closed throat/Swollen lips HOME MEDICATIONS: Home Medications Medication Instructions Recorded Amiodarone HCl 200 mg PO DAILY 10/12/16 Atorvastatin Ca [Lipitor] 40 mg PO HS 10/12/16 Carvedilol [Coreg] 25 mg PO BID 10/12/16 Digoxin 125 mcg PO DAILY 10/12/16 Furosemide [Lasix] 80 mg PO DAILY 10/12/16 Losartan Potassium 100 mg PO DAILY 10/12/16 Methotrexate [Mexate -] 2.5 mg PO MO 10/12/16 Rivaroxaban [Xarelto -] 15 mg PO DAILY 10/12/16 Spironolactone 50 mg PO BID 10/12/16 predniSONE [Deltasone -] 2.5 mg PO DAILY 10/12/16 Insulin Degludec [Tresiba 40 unit SQ DAILY 11/13/16 Flextouch U-100] Exenatide Microspheres [Bydureon 2 mg SQ TH 09/29/18 Pen] Furosemide [Lasix] 40 mg PO HS 09/29/18 REVIEW OF SYSTEMS CONSTITUTIONAL: fever, chills Absent: diaphoresis, generalized weakness, malaise, loss of appetite, weight change HEENT: nasal congestion Absent: rhinorrhea, throat pain, throat swelling, difficulty swallowing, mouth swelling, ear pain, eye pain, visual changes CARDIOVASCULAR: Absent: chest pain, syncope, palpitations, irregular heart rate, lightheadedness , peripheral edema RESPIRATORY: cough, Absent: shortness of breath, dyspnea with exertion, orthopnea, wheezing, stridor, hemoptysis GASTROINTESTINAL: vomiting, diarrhea, Absent: abdominal pain, abdominal distension, nausea, constipation, melena, hematochezia GENITOURINARY: Absent: dysuria, frequency, urgency, hesitancy, hematuria, flank pain, genital pain MUSCULOSKELETAL: arthralgia Absent: myalgia, joint swelling, back pain, neck pain SKIN: Absent: rash, itching, pallor HEMATOLOGIC/IMMUNOLOGIC: Absent: easy bleeding, easy bruising, lymphadenopathy, frequent infections ENDOCRINE: Absent: unexplained weight gain, unexplained weight loss, heat intolerance, cold intolerance NEUROLOGIC: headache Absent: focal weakness or paresthesias, dizziness, unsteady gait, seizure, mental status changes, bladder or bowel incontinence PSYCHIATRIC: Absent: anxiety, depression, suicidal or homicidal ideation, hallucinations. PHYSICAL EXAMINATION Vital Signs - 24 hr 09/29/18 09/29/18 09/29/18 19:08 19:57 20:03 Temperature 99.3 F Pulse Rate 120 H 120 H Pulse Rate [ 120 H Left] Respiratory 24 H 18 Rate Blood Pressure 83/64 L Blood Pressure 87/63 L [Right Arm] O2 Sat by Pulse 95 95 97 Oximetry (%) 09/29/18 09/29/18 09/30/18 20:32 22:05 00:17 Temperature 103.9 F H 101.4 F H Pulse Rate Pulse Rate [ 92 H Left] Respiratory 20 Rate Blood Pressure Blood Pressure 85/60 L [Right Arm] O2 Sat by Pulse 98 Oximetry (%) GENERAL: Awake, alert, and fully oriented, in no acute distress. HEAD: Normal with no signs of trauma. EYES: Pupils equal, round and reactive to light, extraocular movements intact, sclera anicteric, conjunctiva clear. No lid lag. EARS, NOSE, THROAT: Ears normal, nares patent, oropharynx clear without exudates. Dry mucous membranes. NECK: Normal range of motion, supple without lymphadenopathy, JVD, or masses. LUNGS: Breath sounds, rhonchi, diminished bases. No wheezes. No accessory muscle use. HEART: Regular rate and rhythm, normal S1 and S2 without murmur, rub or gallop. ABDOMEN: Soft, nontender, not distended, normoactive bowel sounds, no guarding, no rebound, no masses. No hepatomegaly or splenomegaly. MUSCULOSKELETAL: Normal range of motion at all joints. No bony deformities or tenderness. No CVA tenderness. UPPER EXTREMITIES: 2+ pulses, warm, well-perfused. No cyanosis. No clubbing. No peripheral edema. LOWER EXTREMITIES: 2+ pulses, warm, well-perfused. No calf tenderness. No peripheral edema. NEUROLOGICAL: Cranial nerves II-XII intact. Normal speech. Gait not observed. PSYCHIATRIC: Cooperative. Good eye contact. Appropriate mood and affect. SKIN: Warm, dry, normal turgor, no rashes or lesions noted, normal capillary refill. Laboratory Results - last 24 hr 09/29/18 09/29/18 09/29/18 19:50 19:50 19:50 WBC 2.1 L RBC 2.98 L Hgb 9.8 L Hct 28.7 L MCV 96.3 H MCH 32.9 MCHC 34.2 RDW 17.0 H Plt Count 42 L MPV 8.3 Absolute Neuts (auto) 1.5 Neutrophils % 75.4 Lymphocytes % 19.5 Monocytes % 3.4 L Eosinophils % 0.9 Basophils % 0.8 Nucleated RBC % 0 PT with INR 12.80 INR 1.08 PTT (Actin FS) 30.5 Anticoagulation Therapy Puncture Site ABG pH ABG pCO2 at Pt Temp ABG pO2 at Pt Temp ABG HCO3 ABG O2 Sat (Measured) ABG O2 Content ABG Base Excess Jass Test VBG pH POC VBG pCO2 POC VBG pO2 Mixed VBG HCO3 Carboxyhemoglobin Methemoglobin O2 Delivery Device Oxygen Flow Rate Vent Mode Vent Rate Mechanical Rate Pressure Support Vent Sodium 139 Potassium 4.4 Chloride 107 Carbon Dioxide 22 Anion Gap 10 BUN 42 H Creatinine 3.4 H Creat Clearance w eGFR 18.97 Random Glucose 100 Lactic Acid Calcium 8.0 L Total Bilirubin 0.7 AST 35 ALT 60 Alkaline Phosphatase 119 H Troponin I Total Protein 6.6 Albumin 3.2 L Urine Color Urine Appearance Urine pH Ur Specific [place] Urine Protein Urine Glucose (UA) Urine Ketones Urine Blood Urine Nitrite Urine Bilirubin Urine Urobilinogen Ur Leukocyte Esterase Urine Osmolality Ur Random Sodium Ur Random Chloride Ur Random Urea Nitrogn Urine Creatinine Stool Occult Blood Digoxin Acetone, Qual Influenza A (Rapid) Influenza B (Rapid) Group A Strep Rapid 09/29/18 09/29/18 09/29/18 19:50 19:50 20:00 WBC RBC Hgb Hct MCV MCH MCHC RDW Plt Count MPV Absolute Neuts (auto) Neutrophils % Lymphocytes % Monocytes % Eosinophils % Basophils % Nucleated RBC % PT with INR INR PTT (Actin FS) Anticoagulation Therapy Puncture Site ABG pH ABG pCO2 at Pt Temp ABG pO2 at Pt Temp ABG HCO3 ABG O2 Sat (Measured) ABG O2 Content ABG Base Excess Jass Test VBG pH 7.28 L POC VBG pCO2 46.0 POC VBG pO2 38.9 Mixed VBG HCO3 21.0 Carboxyhemoglobin Methemoglobin O2 Delivery Device Oxygen Flow Rate Vent Mode Vent Rate Mechanical Rate Pressure Support Vent Sodium Potassium Chloride Carbon Dioxide Anion Gap BUN Creatinine Creat Clearance w eGFR Random Glucose Lactic Acid Calcium Total Bilirubin AST ALT Alkaline Phosphatase Troponin I 0.06 H Total Protein Albumin Urine Color Urine Appearance Urine pH Ur Specific [place] Urine Protein Urine Glucose (UA) Urine Ketones Urine Blood Urine Nitrite Urine Bilirubin Urine Urobilinogen Ur Leukocyte Esterase Urine Osmolality Ur Random Sodium Ur Random Chloride Ur Random Urea Nitrogn Urine Creatinine Stool Occult Blood Digoxin Acetone, Qual Negative Influenza A (Rapid) Influenza B (Rapid) Group A Strep Rapid 09/29/18 09/29/18 09/29/18 20:16 20:19 20:19 WBC RBC Hgb Hct MCV MCH MCHC RDW Plt Count MPV Absolute Neuts (auto) Neutrophils % Lymphocytes % Monocytes % Eosinophils % Basophils % Nucleated RBC % PT with INR INR PTT (Actin FS) Anticoagulation Therapy Puncture Site ABG pH ABG pCO2 at Pt Temp ABG pO2 at Pt Temp ABG HCO3 ABG O2 Sat (Measured) ABG O2 Content ABG Base Excess Jass Test VBG pH POC VBG pCO2 POC VBG pO2 Mixed VBG HCO3 Carboxyhemoglobin Methemoglobin O2 Delivery Device Oxygen Flow Rate Vent Mode Vent Rate Mechanical Rate Pressure Support Vent Sodium Potassium Chloride Carbon Dioxide Anion Gap BUN Creatinine Creat Clearance w eGFR Random Glucose Lactic Acid 0.8 Calcium Total Bilirubin AST ALT Alkaline Phosphatase Troponin I Total Protein Albumin Urine Color Urine Appearance Urine pH Ur Specific [place] Urine Protein Urine Glucose (UA) Urine Ketones Urine Blood Urine Nitrite Urine Bilirubin Urine Urobilinogen Ur Leukocyte Esterase Urine Osmolality Ur Random Sodium Ur Random Chloride Ur Random Urea Nitrogn Urine Creatinine Stool Occult Blood Negative Digoxin Acetone, Qual Influenza A (Rapid) Negative Influenza B (Rapid) Negative Group A Strep Rapid 09/29/18 09/29/18 09/29/18 21:15 22:00 22:00 WBC RBC Hgb Hct MCV MCH MCHC RDW Plt Count MPV Absolute Neuts (auto) Neutrophils % Lymphocytes % Monocytes % Eosinophils % Basophils % Nucleated RBC % PT with INR INR PTT (Actin FS) Anticoagulation Therapy Puncture Site ABG pH ABG pCO2 at Pt Temp ABG pO2 at Pt Temp ABG HCO3 ABG O2 Sat (Measured) ABG O2 Content ABG Base Excess Jass Test VBG pH POC VBG pCO2 POC VBG pO2 Mixed VBG HCO3 Carboxyhemoglobin Methemoglobin O2 Delivery Device Oxygen Flow Rate Vent Mode Vent Rate Mechanical Rate Pressure Support Vent Sodium Potassium Chloride Carbon Dioxide Anion Gap BUN Creatinine Creat Clearance w eGFR Random Glucose Lactic Acid Calcium Total Bilirubin AST ALT Alkaline Phosphatase Troponin I Total Protein Albumin Urine Color Yellow Urine Appearance Clear Urine pH 5.0 Ur Specific [place] 1.012 Urine Protein Negative Urine Glucose (UA) Negative Urine Ketones Negative Urine Blood Negative Urine Nitrite Negative Urine Bilirubin Negative Urine Urobilinogen Negative Ur Leukocyte Esterase Negative Urine Osmolality Ur Random Sodium 28 L Ur Random Chloride 55 L Ur Random Urea Nitrogn 381 Urine Creatinine 141.0 Stool Occult Blood Digoxin < 0.06 L Acetone, Qual Influenza A (Rapid) Influenza B (Rapid) Group A Strep Rapid 09/29/18 09/29/18 09/30/18 22:00 22:20 00:50 WBC RBC Hgb Hct MCV MCH MCHC RDW Plt Count MPV Absolute Neuts (auto) Neutrophils % Lymphocytes % Monocytes % Eosinophils % Basophils % Nucleated RBC % PT with INR INR PTT (Actin FS) Anticoagulation Therapy No Result Required. Puncture Site Right radial ABG pH 7.38 ABG pCO2 at Pt Temp 32.5 L ABG pO2 at Pt Temp 83.6 ABG HCO3 18.6 L ABG O2 Sat (Measured) 96.2 ABG O2 Content 10.5 L ABG Base Excess -5.4 L Jass Test Positive VBG pH POC VBG pCO2 POC VBG pO2 Mixed VBG HCO3 Carboxyhemoglobin 1.0 Methemoglobin 0.2 L O2 Delivery Device N/c Oxygen Flow Rate 2l Vent Mode No Result Required. Vent Rate No Result Required. Mechanical Rate No Result Required. Pressure Support Vent No Result Required. Sodium Potassium Chloride Carbon Dioxide Anion Gap BUN Creatinine Creat Clearance w eGFR Random Glucose Lactic Acid Calcium Total Bilirubin AST ALT Alkaline Phosphatase Troponin I Total Protein Albumin Urine Color Urine Appearance Urine pH Ur Specific [place] Urine Protein Urine Glucose (UA) Urine Ketones Urine Blood Urine Nitrite Urine Bilirubin Urine Urobilinogen Ur Leukocyte Esterase Urine Osmolality 318 Ur Random Sodium Ur Random Chloride Ur Random Urea Nitrogn Urine Creatinine Stool Occult Blood Digoxin Acetone, Qual Influenza A (Rapid) Influenza B (Rapid) Group A Strep Rapid Negative ASSESSMENT/PLAN: This is a 53 y/o man with a PMHx of: IDDM, PAF (on Xarelto), [place] x4 (no stents), PPM, HTN, HLD, CKD GAY. Admitted to ICU for Severe Sepsis unknown source, Acute on chronic CKD, Anemia, Thrombocytopenia for further evaluation of their emergent condition. Plan: Will admit to ICU for Severe Sepsis, ?Atypical Pneumonia, Acute on chronic CKD, Anemia, Thrombocytopenia for Continue cardiac monitoring See Problem List: FEN Replete lytes prn Low Na, Diabetic Diet DVT ppx OOB SCDs Hold Xarelto secondary to Anemia/Thrombocytopenia Dispo: Requires Inpatient Care Problem List - Problem (1) Severe sepsis Assessment/Plan: ?Atypical Pneumonia qSOFA 2 SOFA Score 10 Blood Cultures x2 Sepsis Criteria Met V- T max 103.9, P 120, BP 87/63, BUN 42, PLT 42 NS bolus given in ED Vancomycin, Zosyn given in ED, will continue renal dosing Appreciate ID consult Appreciate Pulm/CC Consult Central Line placed in ED IVF continued monitor for Fluid Overload Maintain Map>65 Consider Pressors Monitor CBC, BMP Tylenol prn Code(s): A41.9 - SEPSIS, UNSPECIFIED ORGANISM; R65.20 - SEVERE SEPSIS WITHOUT SEPTIC SHOCK (2) Hypotension Assessment/Plan: See above Hold BP meds Code(s): I95.9 - HYPOTENSION, UNSPECIFIED Qualifiers: Hypotension type: other hypotension type Qualified Code(s): I95.89 - Other hypotension (3) Fever Assessment/Plan: Likely secondary to Sepsis vs Malignancy Blood cultures- pending Monitor CBC, BMP Tylenol prn Code(s): R50.9 - FEVER, UNSPECIFIED Qualifiers: Fever type: unspecified Qualified Code(s): R50.9 - Fever, unspecified (4) Acute kidney injury superimposed on chronic kidney disease Assessment/Plan: Cr 3.4 (baseline 2.7) gentle IVF given in ED Appreciate Nephrology consult Monitor BMP Avoid nephrotoxic drugs Code(s): N17.9 - ACUTE KIDNEY FAILURE, UNSPECIFIED; N18.9 - CHRONIC KIDNEY DISEASE, UNSPECIFIED (5) Multiple nodules of lung Assessment/Plan: CT chest-reviewed Appreciate Pulm consult Monitor vitals O2 Code(s): R91.8 - OTHER NONSPECIFIC ABNORMAL FINDING OF LUNG FIELD (6) Thrombocytopenia Assessment/Plan: Likely secondary to Sepsis vs Anemia Appreciate Hematology consult Monitor CBC Neutropenic Precautions Hold Xarelto Code(s): D69.6 - THROMBOCYTOPENIA, UNSPECIFIED (7) Anemia Assessment/Plan: Hgb 9.8 Stool Occult- neg Monitor CBC Will transfuse if Hgb < 7.0 Appreciate Hematology consult FE, TIBC, Ferritin this am Monitor vitals Code(s): D64.9 - ANEMIA, UNSPECIFIED Qualifiers: Anemia type: due to chronic kidney disease Chronic kidney disease stage: unspecified stage Qualified Code(s): N18.9 - Chronic kidney disease, unspecified; D63.1 - Anemia in chronic kidney disease (8) IDDM (insulin dependent diabetes mellitus) Assessment/Plan: stable BGMs ISS Code(s): E11.9 - TYPE 2 DIABETES MELLITUS WITHOUT COMPLICATIONS; Z79.4 - HOSPITALITY SPECIALIST (CURRENT) USE OF INSULIN (9) Paroxysmal A-fib Assessment/Plan: Stable EKG- ST 108bpm, LBBB, no available study to compare Hold home meds for now secondary to hypotension, Anemia [id number] Continue cardiac monitoring Code(s): I48.0 - PAROXYSMAL ATRIAL FIBRILLATION (10) CAD (coronary artery disease) Assessment/Plan: hx [place] x4 no stents s/p PPM EKG reviewed Will hold home meds for now secondary to hypotension, anemia Consider cardiology consult Code(s): I25.10 - ATHSCL HEART DISEASE OF [place] CORONARY ARTERY W/O ANG PCTRS (11) HLD (hyperlipidemia) Assessment/Plan: stable Continue Liptor Code(s): E78.5 - HYPERLIPIDEMIA, UNSPECIFIED Visit type - Emergency Visit Emergency Visit: Yes ED Registration Date: 09/29/18 Care time: The patient presented to the Emergency Department on the above date and was hospitalized for further evaluation of their emergent condition. - New Patient This patient is new to me today: Yes Date on this admission: 09/30/18 - Critical Care Critical Care patient: Yes Total Critical Care Time (in minutes): 32 Critical Care Statement: The care of this patient involved high complexity decision making to prevent further life threatening deterioration of the patient 's condition and/or to evaluate & treat vital organ system(s) failure or risk of failure.
[2018-09-30] MEDS ORDERED: MORPHINE SULFATE 2 MG/ML VIAL IVPUSH PRN (03:10)
[2018-09-30 03:12] VITALS: BMI 34.2
[2018-09-30] MEDS: SODIUM CHLORIDE 1,000 ML IV SCH (03:15)
[2018-09-30 03:17] LABS: OSMOLALITY,SERUM 297 mosm/kg (278-305)
[2018-09-30 05:50] LABS: BASO % 0.6 % (0-2.0); EOS % 0.3 % (0-4.5); HEMATOCRIT 22.7 % (35.4-49); HEMOGLOBIN 7.6 GM/dL (11.7-16.9); LYMPH % 31.7 % (8-40); MCH 32.2 pg (25.7-33.7); MCHC 33.5 g/dl (32.0-35.9); MEAN CELL VOLUME 96.3 fl (80-96); MEAN PLT VOLUME 7.8 fl (7.5-11.1); MONO % 3.2 % (3.8-10.2); NEUT % 64.2 % (42.8-82.8); RBC 2.36 M/mm3 (4.00-5.60); RDW 16.9 % (11.9-15.9)
[2018-09-30 06:05] LABS: WHITE BLOOD COUNT 1.9 K/mm3 (4.0-10.0)
[2018-09-30 06:06] LABS: PLATELET COUNT 28 K/MM3 (134-434)
[2018-09-30 06:24] LABS: ALBUMIN 2.6 g/dl (3.4-5.0); ALK PHOS 92 U/L (45-117); ANION GAP 7 MMOL/L (8-16); BILIRUBIN,TOTAL 0.4 mg/dL (0.2-1); BLOOD UREA NITROGEN 41 mg/dL (7-18); CALCIUM 7.3 mg/dL (8.5-10.1); CHLORIDE 111 mmol/L (98-107); CO2 21 mmol/L (21-32); CREATININE 3.3 mg/dL (0.55-1.3); GLUCOSE,RANDOM 100 mg/dL (74-106); MAGNESIUM 1.8 mg/dL (1.8-2.4); PHOSPHOROUS 3.9 mg/dL (2.5-4.9); SGOT/AST 25 U/L (15-37); SGPT/ALT 43 U/L (13-61); SODIUM 140 mmol/L (136-145); TOT PROT 5.3 g/dl (6.4-8.2)
--- NOTE | 2018-09-30 07:34 | PN ---
Physical Exam: SUBJECTIVE: Patient seen and examined this AM in ICU. Feels much better since admission. Cough has improved however continues to have yellow phlegm production. Additionally continues to have SOB. Denies any fevers, chills, chest pain, nausea, vomiting. Patient was born in the and mentions a similar illness 1 year ago; he cannot recall management but mentions he had "water on his lungs." No hx of being immunocompromised or HIV diagnose. OBJECTIVE: Vital Signs Period Temp Pulse Resp BP Sys/F[place]man Pulse Ox Last 24 Hr 98.4 F-103.9 F 89-120 18-24 80-94/60-69 95-98 GENERAL: A&Ox3, NAD, primarily polish speaking HEAD: NCAT EYES: PERRL, EOMI ENT: Moist mucous membranes NECK: Supple, R IJ placed with CDI dressing LUNGS: Diminished breath sounds at the bases, Rhonchi heard throughout, no wheezes, no crackles HEART: Regular rate and rhythm, S1, S2 without murmur ABDOMEN: Soft, nontender, nondistended, + bowel sounds, no guarding EXTREMITIES: No edema NEUROLOGICAL: Cranial nerves II through XII grossly intact. Normal speech SKIN: Warm, dry Laboratory Last Values WBC 1.9 K/mm3 (4.0-10.0) L* 09/30/18 05:30 RBC 2.36 M/mm3 (4.00-5.60) L 09/30/18 05:30 Hgb 7.6 GM/dL (11.7-16.9) L 09/30/18 05:30 Hct 22.7 % (35.4-49) L D 09/30/18 05:30 MCV 96.3 fl (80-96) H 09/30/18 05:30 MCH 32.2 pg (25.7-33.7) 09/30/18 05:30 MCHC 33.5 g/dl (32.0-35.9) 09/30/18 05:30 RDW 16.9 % (11.9-15.9) H 09/30/18 05:30 Plt Count 28 K/MM3 (134-434) L* D 09/30/18 05:30 MPV 7.8 fl (7.5-11.1) 09/30/18 05:30 Absolute Neuts (auto) 1.2 K/mm3 (1.5-8.0) L 09/30/18 05:30 Neutrophils % 64.2 % (42.8-82.8) 09/30/18 05:30 Lymphocytes % 31.7 % (8-40) D 09/30/18 05:30 Monocytes % 3.2 % (3.8-10.2) L 09/30/18 05:30 Eosinophils % 0.3 % (0-4.5) 09/30/18 05:30 Basophils % 0.6 % (0-2.0) 09/30/18 05:30 Nucleated RBC % 0 % (0-0) 09/30/18 05:30 PT with INR 12.80 SEC (9.7-13.0) 09/29/18 19:50 INR 1.08 (0.83-1.09) 09/29/18 19:50 PTT (Actin FS) 30.5 SECONDS (25.2-36.5) 09/29/18 19:50 Anticoagulation Therapy No Result Required. 09/30/18 00:50 Puncture Site Right radial 09/30/18 00:50 ABG pH 7.38 (7.35-7.45) 09/30/18 00:50 ABG pCO2 at Pt Temp 32.5 mmHg (35-45) L 09/30/18 00:50 ABG pO2 at Pt Temp 83.6 mmHg (80-100) 09/30/18 00:50 ABG HCO3 18.6 meq/L (22-26) L 09/30/18 00:50 ABG O2 Sat (Measured) 96.2 % (90-98.9) 09/30/18 00:50 ABG O2 Content 10.5 % vol (15-22) L 09/30/18 00:50 ABG Base Excess -5.4 meq/l (-2-2) L 09/30/18 00:50 Jass Test Positive 09/30/18 00:50 VBG pH 7.28 (7.32-7.42) L 09/29/18 20:00 POC VBG pCO2 46.0 mmHg (38-52) 09/29/18 20:00 POC VBG pO2 38.9 mmHg (28-48) 09/29/18 20:00 Mixed VBG HCO3 21.0 meq/L (19-25) 09/29/18 20:00 Carboxyhemoglobin 1.0 gm% (0.5-2.0) 09/30/18 00:50 Methemoglobin 0.2 % (0.4-1.5) L 09/30/18 00:50 O2 Delivery Device N/c 09/30/18 00:50 Oxygen Flow Rate 2l 09/30/18 00:50 Vent Mode No Result Required. 09/30/18 00:50 Vent Rate No Result Required. 09/30/18 00:50 Mechanical Rate No Result Required. 09/30/18 00:50 Pressure Support Vent No Result Required. 09/30/18 00:50 Sodium 140 mmol/L (136-145) 09/30/18 05:30 Potassium 4.0 mmol/L (3.5-5.1) 09/30/18 05:30 Chloride 111 mmol/L (98-107) H 09/30/18 05:30 Carbon Dioxide 21 mmol/L (21-32) 09/30/18 05:30 Anion Gap 7 MMOL/L (8-16) L 09/30/18 05:30 BUN 41 mg/dL (7-18) H 09/30/18 05:30 Creatinine 3.3 mg/dL (0.55-1.3) H 09/30/18 05:30 Creat Clearance w eGFR 19.63 (>60) 09/30/18 05:30 POC Glucometer 93 UNITS (80-120) 09/30/18 05:43 Random Glucose 100 mg/dL (74-106) 09/30/18 05:30 Serum Osmolality 297 mosm/kg (278-305) 09/29/18 21:15 Lactic Acid 0.8 mmol/L (0.4-2.0) 09/29/18 20:19 Calcium 7.3 mg/dL (8.5-10.1) L 09/30/18 05:30 Phosphorus 3.9 mg/dL (2.5-4.9) 09/30/18 05:30 Magnesium 1.8 mg/dL (1.8-2.4) 09/30/18 05:30 Total Bilirubin 0.4 mg/dL (0.2-1) 09/30/18 05:30 AST 25 U/L (15-37) 09/30/18 05:30 ALT 43 U/L (13-61) 09/30/18 05:30 Alkaline Phosphatase 92 U/L (45-117) 09/30/18 05:30 Troponin I 0.06 ng/ml (0.00-0.05) H 09/29/18 19:50 Total Protein 5.3 g/dl (6.4-8.2) L 09/30/18 05:30 Albumin 2.6 g/dl (3.4-5.0) L 09/30/18 05:30 Urine Color Yellow 09/29/18 22:00 Urine Appearance Clear 09/29/18 22:00 Urine pH 5.0 (5.0-8.0) 09/29/18 22:00 Ur Specific [place] 1.012 (1.010-1.035) 09/29/18 22:00 Urine Protein Negative (NEGATIVE) 09/29/18 22:00 Urine Glucose (UA) Negative (NEGATIVE) 09/29/18 22:00 Urine Ketones Negative (NEGATIVE) 09/29/18 22:00 Urine Blood Negative (NEGATIVE) 09/29/18 22:00 Urine Nitrite Negative (NEGATIVE) 09/29/18 22:00 Urine Bilirubin Negative (<2.0 mg/dL) 09/29/18 22:00 Urine Urobilinogen Negative mg/dL (0.2-1.0) 09/29/18 22:00 Ur Leukocyte Esterase Negative (NEGATIVE) 09/29/18 22:00 Urine Osmolality 318 mosm/kg (300-900) 09/29/18 22:00 Ur Random Sodium 28 MMOL/L (40-220) L 09/29/18 22:00 Ur Random Chloride 55 MMOL/L (110-250) L 09/29/18 22:00 Ur Random Urea Nitrogn 381 mg/dL (350-1000) 09/29/18 22:00 Urine Creatinine 141.0 mg/dL (20-320) 09/29/18 22:00 Stool Occult Blood Negative (NEGATIVE) 09/29/18 20:16 Digoxin < 0.06 ng/ml (0.8-2.0) L 09/29/18 21:15 Acetone, Qual Negative (NEGATIVE) 09/29/18 19:50 Influenza A (Rapid) Negative 09/29/18 20:19 Influenza B (Rapid) Negative 09/29/18 20:19 Group A Strep Rapid Negative 09/29/18 22:20 Active Medications Acetaminophen (Tylenol -) 1,000 mg PO Q6H PRN PRN Reason: PAIN LEVEL 1-5 Amiodarone HCl (Cordarone -) 200 mg PO DAILY [facility] Last Admin: 09/30/18 10:55 Dose: 200 mg Chlorhexidine Gluconate (Hibiclens For Decolonization -) 1 applic TP HS [facility] Sodium Chloride (Normal Saline -) 1,000 mls @ 75 mls/hr IV ASDIR [facility] Last Admin: 09/30/18 03:15 Dose: 75 mls/hr Piperacillin Sod/Tazobactam (Sod 2.25 gm/ Dextrose) 50 mls @ 100 mls/hr IVPB Q8H-IV SHAHRIAR; Protocol Last Admin: 09/30/18 11:00 Dose: 100 mls/hr Vancomycin HCl (Vancomycin (Pre-Docked)) 1,000 mg in 250 mls @ 166.667 mls/hr IVPB ONCE ONE; Protocol Stop: 09/30/18 12:44 Doxycycline Hyclate 100 mg/ (Dextrose) 100 mls @ 50 mls/hr IVPB BID [facility] Morphine Sulfate (Morphine Sulfate) 2 mg IVPUSH Q6H PRN PRN Reason: PAIN LEVEL 6-10 Mupirocin (Bactroban Ointment (For Decolonization) -) 1 applic NS BID [facility] Stop: 10/05/18 09:59 Last Admin: 09/30/18 10:55 Dose: 1 applic Oseltamivir Phosphate (Tamiflu -) 30 mg PO BID [facility] Stop: 10/05/18 11:14 Rivaroxaban (Xarelto) 15 mg PO 1800 [facility] ASSESSMENT/PLAN: 53 y/o M with PMhx of CHF (s/p ICD on Entresto), AFIB (on Xarelto), CAD, IDDM, CKD will be admitted to ICU for further management of sepsis and HD instability. #Neuro -A&Ox3, NAD -Continue to monitor for changes in Neuro #Cardio Hypotensive Prolonged QTc Troponemia, likely demand Hx CHF (s/p ICD on Entresto), AFIB (on Xarelto), CAD -Norepinephrine Drip PRN to maintain MAP > 65, Currently off drip -Monitor CVP with goal of 8-12 -S/P 2L NS; did not receive 30 cc/kg IVF resuscitation 2/2 hx of CHF and CKD -Continue NS @ 75 mls/hr -Hold home dose Furosemide, Entresto and Beta suzanne; Restart when pressures improved -Digoxin < 0.06 -Continue home dose Xarelto, Amiodarone -Trop 0.06 -Tele monitoring -Prior ECHO (09/27/15): LV systolic function is severely reduced, severe global hypokinesis of the LV, LA and RA moderately dilated, Mild MR and AR -EKG: Sinus Tachycardia, LBBB, VR 118, QTc 594 -Dr. Britt Consulted #Pulm Possible atypical PNA Hx of Severe GAY (Sleep Study in 01/27) -Duoneb PRN -Supplemental O2 to maintain Spo2 >90% -CT chest: Patchy consolidation within the left upper and lower lobe suspicious for acute pneumonia. There are also areas of atelectasis within the right middle and lower lobes. Cardiomegaly and mild mediastinal lymphadenopathy. #GI Elevated Alkaline phosphatase, Corrected -CT Abdomen/Pelvis: No evidence of intra-abdominal abscess or acute pathology within the abdomen or pelvis. -Diabetic diet -Ondansetron PRN for nausea #ID Sepsis 2/2 possible Atypical PNA -SIRS+: Febrile on Admission, HR 120 -Lactic acid 0.8 -CXR: Possible mild cephalization may be on the basis of mild volume overload. No definite infiltrate or pleural effusion is identified. -UA negative LE and Nitrite -Influenza, Group A Strep Negative -Blood, Throat, sputum, Urine Cx pending -HIV, CD3, CD4, CD8 count Pending -Given 1 dose with Vanco 1g, Zoysn 4.5 in ED -Tylenol for fever and pain 1-5 -Morphine 2mg Q6H PRN (Pain 6-10 at central line insertion) -Central Line placed in ED -Neutropenic precautions -S/P 2L NS; Continue NS @ 75mls/hr -Dr. Dasilva consulted -Continue IV Piperacillin/Tazobactam 2.25, Vancomycin 1g, Doxycycline 100mg, Oseltamivir 30mg BID (Started ABx on 09/29) #Renal ESTEVAN on CKD, Improving Hyperchloremia -Last Cr. 2.7 (2016) -S/P 2L NS; Continue NS @ 75mls/hr -Serum and urine lytes and osm noted -Calculated Fe Urea (On Torsimide) 21.7%; (< 35% suggest pre-renal disease) -Kidney/Renal US: No hydronephrosis, Increased renal cortical echogenicity b/l on the basis of medical renal disease, kidneys otherwise appear unremarkable. -Monitor I&Os, Urine Output, Cr -Dr. Cardenas consulted #Heme/Onc Pancytopenia due to Unclear etiology, Possibly sepsis -WBC 1.9 with Absolute Neutrophils 1.2, Hgb 7.6, Hct 22.7, PLT 28 -FOBT Negative -Possible Lung nodules seen on Chest CT -Will consider heme consult -Trend H&H; Maintain Hgb >7.0 -Dr. Guerrero Consulted #Endo Hx of IDDM -BGMs ISS ACHS #Rheum Hx of Gout -Continue home dose Colchicine #FEN -NS @ 75 mls/hr -Replete Lytes PRN -Diabetic diet #PPx -DVT: Xarelto, SCDs Dispo: continue to monitor in ICU Visit type - Emergency Visit Emergency Visit: Yes ED Registration Date: 09/30/18 Care time: The patient presented to the Emergency Department on the above date and was hospitalized for further evaluation of their emergent condition. - New Patient This patient is new to me today: Yes Date on this admission: 09/30/18 - Critical Care Critical Care patient: Yes Total Critical Care Time (in minutes): 36 Critical Care Statement: The care of this patient involved high complexity decision making to prevent further life threatening deterioration of the patient 's condition and/or to evaluate & treat vital organ system(s) failure or risk of failure.
[2018-09-30] MEDS ORDERED: PIPERACILLIN/TAZOB 2.25 GM 2.25 GM in DEXTROSE 5%-WATER - 50 ML IVPB SCH (09:00)
[2018-09-30] MEDS ORDERED: PIPERACILLIN/TAZOBACTAM 2.25 GM VIAL IVPB ONE ×2 (10:43→17:24)
[2018-09-30] MEDS ORDERED: DEXTROSE 5%-WATER - 50 ML IVPB ONE ×2 (10:44→17:25)
[2018-09-30] MEDS: MUPIROCIN 2% TOPICAL OINTMENT FOR DECOLONIZATION NS SCH ×2 (10:55→21:52)
[2018-09-30] MEDS: AMIODARONE HCL 200 MG TABLET (FP) PO SCH (10:55)
[2018-09-30] MEDS ORDERED: AZITHROMYCIN IVPB 500 MG/250 ML BAG IVPB SCH (11:00)
[2018-09-30] MEDS: PIPERACILLIN/TAZOB 2.25 GM 2.25 GM in DEXTROSE 5%-WATER - 50 ML IVPB SCH ×2 (11:00→17:29)
--- NOTE | 2018-09-30 11:09 | PN ---
Progress Note, Physician Chief Complaint: Events noted pt is in bed c/o abdominal pain , constipation, dysuria, nausea or vomiting had diarrhea has generalized abdominal pain , body aches Coughing+ , sputum+ no SOB no recent h/o travel, he is on disability for ischemic cardiomyopathy - Current Medication List Current Medications: Active Medications Acetaminophen (Tylenol -) 1,000 mg PO Q6H PRN PRN Reason: PAIN LEVEL 1-5 Amiodarone HCl (Cordarone -) 200 mg PO DAILY [facility] Last Admin: 09/30/18 10:55 Dose: 200 mg Chlorhexidine Gluconate (Hibiclens For Decolonization -) 1 applic TP HS [facility] Sodium Chloride (Normal Saline -) 1,000 mls @ 75 mls/hr IV ASDIR [facility] Last Admin: 09/30/18 03:15 Dose: 75 mls/hr Piperacillin Sod/Tazobactam (Sod 2.25 gm/ Dextrose) 50 mls @ 100 mls/hr IVPB Q8H-IV SHAHRIAR; Protocol Azithromycin 500 mg/ Dextrose 250 mls @ 250 mls/hr IVPB DAILY [facility] Vancomycin HCl 1,000 mg/ (Dextrose) 250 mls @ 166.667 mls/hr IVPB ONCE ONE; Protocol Stop: 09/30/18 12:30 Morphine Sulfate (Morphine Sulfate) 2 mg IVPUSH Q6H PRN PRN Reason: PAIN LEVEL 6-10 Mupirocin (Bactroban Ointment (For Decolonization) -) 1 applic NS BID [facility] Stop: 10/05/18 09:59 Last Admin: 09/30/18 10:55 Dose: 1 applic Rivaroxaban (Xarelto) 15 mg PO 1800 [facility] - Objective Vital Signs: Vital Signs Temperature 98.4 F 09/30/18 02:06 Pulse Rate 98 H 09/30/18 08:00 Respiratory Rate 22 H 09/30/18 08:00 Blood Pressure 87/67 L 09/30/18 08:00 O2 Sat by Pulse Oximetry (%) 98 09/30/18 04:32 Constitutional: Yes: Mild Distress Cardiovascular: Yes: Regular Rate and Rhythm Respiratory: Yes: Diminished, Rales, Rhonchi (rt +) Gastrointestinal: Yes: Normal Bowel Sounds, Soft, Abdomen, Obese, Tenderness. No: Tenderness, Rebound Edema: No Labs: CBC, BMP 09/30/18 05:30 09/30/18 05:30 INR, PTT INR 1.08 (0.83-1.09) 09/29/18 19:50 Problem List - Problems (1) Pancytopenia Code(s): D61.818 - OTHER PANCYTOPENIA (2) Acute kidney injury superimposed on chronic kidney disease Code(s): N17.9 - ACUTE KIDNEY FAILURE, UNSPECIFIED; N18.9 - CHRONIC KIDNEY DISEASE, UNSPECIFIED (3) Anemia Code(s): D64.9 - ANEMIA, UNSPECIFIED Qualifiers: Anemia type: due to chronic kidney disease Chronic kidney disease stage: unspecified stage Qualified Code(s): N18.9 - Chronic kidney disease, unspecified; D63.1 - Anemia in chronic kidney disease (4) CAD (coronary artery disease) Code(s): I25.10 - ATHSCL HEART DISEASE OF [place] CORONARY ARTERY W/O ANG PCTRS (5) Severe sepsis Code(s): A41.9 - SEPSIS, UNSPECIFIED ORGANISM; R65.20 - SEVERE SEPSIS WITHOUT SEPTIC SHOCK Assessment/Plan Neutropenic sepsis Pancytopenia Acute on ckd Spoke with PMD- Dr Ashford Pt is AAOx3 baseline creatinine 2.6 EF was 15-20 % per PMD Sepsis -- does not require pressors at this time -- on Vanco , Zosyn, Zithromycin -- gentle iv fluids if needed -- IXD eval noted -- spoke with ID -- pt agreed for HIV testing -- may start Tamiflu though rapid flu is negative, pt does have signs and symptoms of flu like illness -- neutropenic precautions Acute on CKD -- due to sepsis, hypotension --baseline creatinine 2.6 -- Nephrology eval -- hold off Entresto and Torsemide Ischemic cardiomyopathy -- EF- per PMD 15-20% -- Continue Amiodarone -- hold Entresto and Torsemide -- Cardiology eval DVT prophylaxis -- pt is on Xarelto
--- NOTE | 2018-09-30 11:11 | PN ---
Progress Note (short form) - Note Progress Note: ID CONSULT DICTATED SEPTIC SHOCK NEUTROPENIC SEPSIS/ PANCYTOPENIA PNEUMONIA COMMUNITY ACQ V. ATYPICAL ? VIRAL VIRAL SYNDROME CKD IDDM AWAIT C/S VIRAL RESP PANEL EMPIRIC TAMIFLU TX FEBRILE NEUTROPENIA/ PNEUMONIA WITH ZOSYN/ DOXY ( PROLONGED QT) + VANCO ADJUSTED FOR RENAL FAILURE HIV TEST NEUTROPENIC PRECAUTIONS HEME EVALUATION
[2018-09-30] MEDS ORDERED: VANCOMYCIN 1 GRAM (PRE-DOCKED) 1,000 MG/250 ML BAG IVPB ONE (11:15)
[2018-09-30 11:25] LABS: PLATELET ESTIMATE DECREASED
--- NOTE | 2018-09-30 11:38 | CONS ---
DATE OF CONSULTATION: DATE OF DICTATION: 09/30/2018 INFECTIOUS DISEASE CONSULTATION The patient is a 53-year-old diabetic male with a history of chronic kidney disease evaluated for neutropenic sepsis. He was admitted to the hospital on September 30, 2018, with a 2-week history of flulike illness, nausea, vomiting, diarrhea, shortness of breath, and cough productive of yellowish sputum. He presented to the emergency room where a CT scan of the chest shows patchy left upper and left lower lobe infiltrates as well as with mediastinal adenopathy. His course was complicated by hypotension, tachycardia, and tachypnea. He was found to be pancytopenic with a white count of 2.1, absolute neutrophil count of 1.2. Influenza swab was performed and was negative. The patient lives in the community with his and children. He denies any ill contacts. He reports receiving influenza vaccine last year. No recent travel. No recent hospitalizations. Previous CBCs have been normal. He has a history of chronic kidney disease and is being followed by die maintenance technician. PAST MEDICAL HISTORY: Positive for insulin dependent diabetes mellitus, chronic kidney disease, atrial fibrillation, coronary artery disease, myocardial infarction. PAST SURGICAL HISTORY: Status post permanent pacemaker. ALLERGIES: AMLODIPINE. MEDICATIONS: Include Tylenol, amiodarone, Ativan, morphine sulfate, Xarelto. SOCIAL HISTORY: As per HPI. Patient states he tested HIV negative in the past. However, is willing to be retested. Former smoker. LABORATORY DATA: White count 2.1 with 64 neutrophils, 31 lymphocytes, 3 monocytes, hematocrit 22.7, platelet count 28. BUN 41, creatinine 3.3. Lactic acid 0.8. Liver enzymes normal. Urinalysis negative. Flu swab negative. PHYSICAL EXAMINATION: General: He is awake and alert. He complains of abdominal distention. He appears slightly short of breath on nasal cannula. Vital Signs: Temperature 98.4, T-max 103.9, blood pressure 87/67, pulse 98 regular respirations 22 per minute. Eyes: Sclerae anicteric. Heart: Sounds S1, S2. Lungs: Clear bilaterally. No rhonchi, rales, or wheezing. Abdomen: Obese, distended. No tenderness elicited. Extremities: Negative for edema. IMPRESSION: 1. Sepsis/septic shock. 2. Febrile neutropenia. 3. Pancytopenia. 4. Left upper and left lower lobe pneumonia. 5. Chronic kidney disease. 6. Insulin-dependent diabetes mellitus. PLAN: Await cultures. Obtain sputum culture, urine legionella, and pneumococcal antigens. Viral respiratory panel. HIV test. Empiric antibiotic coverage for febrile neutropenia with Zosyn. Zithromax for coverage of atypical pathogens. Vancomycin for additional staph coverage adjusted for renal failure. We will start empirically on Tamiflu despite negative influenza swab enlight of symptoms and pancytopenia. Neutropenia precautions. Hematology evaluation. Thank you for the kind referral. RADHA RICHTER M.D. [id number]
[2018-09-30 11:51] LABS: ANISOCYTOSIS 1+
--- NOTE | 2018-09-30 11:53 | EKG ---
Test Reason : Blood Pressure : / mmHG Vent. Rate : 118 BPM Atrial Rate : 118 BPM P-R Int : 172 ms QRS Dur : 154 ms QT Int : 424 ms P-R-T Axes : 036 -25 090 degrees QTc Int : 594 ms SINUS TACHYCARDIA POSSIBLE LEFT ATRIAL ENLARGEMENT LEFT BUNDLE BRANCH BLOCK ABNORMAL ECG NO PREVIOUS ECGS AVAILABLE Confirmed by MD ROBYN, ARIS ([id number]) on 09/30/2018 11:53:26 AM Referred By: Confirmed By:ARIS CARLSON MD
[2018-09-30] MEDS ORDERED: PT OWN MED DRAWER 7, Y5N ONE ×6 (12:00→21:24)
--- NOTE | 2018-09-30 12:11 | CONSULT ---
Consultation: REQUESTING PROVIDER: Iman Rush CONSULT REQUEST: We have been asked to medically evaluate this patient for pancytopenia. HISTORY OF PRESENT ILLNESS: This is a 53 year old male with a past medical history of congestive heart failure s/p ICD, CAD, DM, CKD, paroxysmal atrial fibrillation on xarelto, presented with a productive cough with brown sputum, fever, chills, abdominal pain, distention, n, non bloody/non bilious vomiting and diarrhea for the past two weeks. Patient found to be septic with pancytopenia and acute kidney failure. CT scan of chest showing nodular densities in multiple lobes, prominent lymph nodes throughout mediastinal chain, lung barnhart with patchy consolidation. Flu swab negative in ER. Last travel to 2 years ago. No sick contacts. PMH: CHF, afib, ckd, DM, gout, HTN, HLD Social hx: lives at home with and kids; does not work; has not been exposed to chemical fumes; quit smoking 9 years ago; smoked 1ppd for 20 years; drank alcohol in the past; not heavily; denies illicit drug use Family history:brother of "bone cancer" in his 50s; mother and father he believes from heart disease REVIEW OF SYSTEMS: CONSTITUTIONAL: Positive: fever, chills, diaphoresis, generalized weakness Absent:malaise, loss of appetite, weight change HEENT: Absent: rhinorrhea, nasal congestion, throat pain, throat swelling, difficulty swallowing, mouth swelling, ear pain, eye pain, visual changes CARDIOVASCULAR: Absent: chest pain, syncope, palpitations, irregular heart rate, lightheadedness , peripheral edema RESPIRATORY: Positive: cough, shortness of breath, Absent: dyspnea with exertion, orthopnea, wheezing, stridor, hemoptysis GASTROINTESTINAL: Positive: abdominal pain, abdominal distension, nausea, vomiting, diarrhea, Absent: constipation, melena, hematochezia GENITOURINARY: Absent: dysuria, frequency, urgency, hesitancy, hematuria, flank pain, genital pain MUSCULOSKELETAL: Absent: myalgia, arthralgia, joint swelling, back pain, neck pain SKIN: Absent: rash, itching, pallor HEMATOLOGIC/IMMUNOLOGIC: Absent: easy bleeding, easy bruising, lymphadenopathy, frequent infections ENDOCRINE: Absent: unexplained weight gain, unexplained weight loss, heat intolerance, cold intolerance NEUROLOGIC: Absent: headache, focal weakness or paresthesias, dizziness, unsteady gait, seizure, mental status changes, bladder or bowel incontinence PSYCHIATRIC: Absent: anxiety, depression, suicidal or homicidal ideation, hallucinations. PHYSICAL EXAMINATION Vital Signs - 24 hr 09/29/18 09/29/18 09/29/18 19:08 19:57 20:03 Temperature 99.3 F Pulse Rate 120 H 120 H Pulse Rate [ 120 H Left] Respiratory 24 H 18 Rate Blood Pressure 83/64 L Blood Pressure 87/63 L [Right Arm] O2 Sat by Pulse 95 95 97 Oximetry (%) 09/29/18 09/29/18 09/30/18 20:32 22:05 00:17 Temperature 103.9 F H 101.4 F H Pulse Rate Pulse Rate [ 92 H Left] Respiratory 20 Rate Blood Pressure Blood Pressure 85/60 L [Right Arm] O2 Sat by Pulse 98 Oximetry (%) 09/30/18 09/30/18 09/30/18 02:06 02:20 04:03 Temperature 98.4 F Pulse Rate 94 H 89 Pulse Rate [ 94 H Left] Respiratory 24 H 18 22 H Rate Blood Pressure 90/69 80/64 L Blood Pressure 94/69 [Right Arm] O2 Sat by Pulse 96 98 Oximetry (%) 09/30/18 09/30/18 09/30/18 04:32 05:36 08:00 Temperature Pulse Rate 93 H 98 H Pulse Rate [ Left] Respiratory 22 H 22 H 22 H Rate Blood Pressure 82/63 L 87/67 L Blood Pressure [Right Arm] O2 Sat by Pulse 98 Oximetry (%) 09/30/18 09:00 Temperature Pulse Rate Pulse Rate [ Left] Respiratory Rate Blood Pressure Blood Pressure [Right Arm] O2 Sat by Pulse 98 Oximetry (%) GENERAL: Awake, alert, and fully oriented, in no acute distress. HEAD: Normal with no signs of trauma. EYES: Pupils equal, round and reactive to light, extraocular movements intact, sclera anicteric, conjunctiva clear. No lid lag. EARS, NOSE, THROAT: Ears normal, nares patent, oropharynx clear without exudates. Moist mucous membranes. NECK: Normal range of motion, supple without lymphadenopathy, JVD, or masses. LUNGS: decreased breath sounds; scattered wheeze HEART: Regular rate and irregular rhythm, normal S1 and S2 without murmur, rub or gallop. Breast/axilla: no lumps/masses or nipple discharge ABDOMEN:very distended; soft; mildly tender to palpation diffusely UPPER EXTREMITIES: 2+ pulses, warm, well-perfused. No cyanosis. No clubbing. Cap refill <2 seconds. No peripheral edema. LOWER EXTREMITIES: 2+ pulses, warm, well-perfused. No calf tenderness. No peripheral edema. NEUROLOGICAL: Cranial nerves II-XII intact. Normal speech. PSYCHIATRIC: Cooperative. Good eye contact. Appropriate mood and affect. SKIN: Warm, dry, normal turgor, no rashes or lesions noted. Laboratory Results - last 24 hr 09/29/18 09/29/18 09/29/18 19:50 19:50 19:50 WBC 2.1 L RBC 2.98 L Hgb 9.8 L Hct 28.7 L MCV 96.3 H MCH 32.9 MCHC 34.2 RDW 17.0 H Plt Count 42 L MPV 8.3 Absolute Neuts (auto) 1.5 Neutrophils % 75.4 Neutrophils % (Manual) Band Neutrophils % Lymphocytes % 19.5 Lymphocytes % (Manual) Monocytes % 3.4 L Monocytes % (Manual) Eosinophils % 0.9 Eosinophils % (Manual) Basophils % 0.8 Basophils % (Manual) Myelocytes % (Man) Promyelocytes % (Man) Blast Cells % (Manual) Nucleated RBC % 0 Metamyelocytes Platelet Estimate Polychromasia Anisocytosis Microcytosis PT with INR 12.80 INR 1.08 PTT (Actin FS) 30.5 Anticoagulation Therapy Puncture Site ABG pH ABG pCO2 at Pt Temp ABG pO2 at Pt Temp ABG HCO3 ABG O2 Sat (Measured) ABG O2 Content ABG Base Excess Jass Test VBG pH POC VBG pCO2 POC VBG pO2 Mixed VBG HCO3 Carboxyhemoglobin Methemoglobin O2 Delivery Device Oxygen Flow Rate Vent Mode Vent Rate Mechanical Rate Pressure Support Vent Sodium 139 Potassium 4.4 Chloride 107 Carbon Dioxide 22 Anion Gap 10 BUN 42 H Creatinine 3.4 H Creat Clearance w eGFR 18.97 POC Glucometer Random Glucose 100 Serum Osmolality Lactic Acid Calcium 8.0 L Phosphorus Magnesium Ferritin Total Bilirubin 0.7 AST 35 ALT 60 Alkaline Phosphatase 119 H Troponin I Total Protein 6.6 Albumin 3.2 L Urine Color Urine Appearance Urine pH Ur Specific [place] Urine Protein Urine Glucose (UA) Urine Ketones Urine Blood Urine Nitrite Urine Bilirubin Urine Urobilinogen Ur Leukocyte Esterase Urine Osmolality Ur Random Sodium Ur Random Potassium Ur Random Chloride Ur Random Urea Nitrogn Urine Creatinine Stool Occult Blood Digoxin Acetone, Qual Influenza A (Rapid) Influenza B (Rapid) Group A Strep Rapid 09/29/18 09/29/18 09/29/18 19:50 19:50 20:00 WBC RBC Hgb Hct MCV MCH MCHC RDW Plt Count MPV Absolute Neuts (auto) Neutrophils % Neutrophils % (Manual) Band Neutrophils % Lymphocytes % Lymphocytes % (Manual) Monocytes % Monocytes % (Manual) Eosinophils % Eosinophils % (Manual) Basophils % Basophils % (Manual) Myelocytes % (Man) Promyelocytes % (Man) Blast Cells % (Manual) Nucleated RBC % Metamyelocytes Platelet Estimate Polychromasia Anisocytosis Microcytosis PT with INR INR PTT (Actin FS) Anticoagulation Therapy Puncture Site ABG pH ABG pCO2 at Pt Temp ABG pO2 at Pt Temp ABG HCO3 ABG O2 Sat (Measured) ABG O2 Content ABG Base Excess Jass Test VBG pH 7.28 L POC VBG pCO2 46.0 POC VBG pO2 38.9 Mixed VBG HCO3 21.0 Carboxyhemoglobin Methemoglobin O2 Delivery Device Oxygen Flow Rate Vent Mode Vent Rate Mechanical Rate Pressure Support Vent Sodium Potassium Chloride Carbon Dioxide Anion Gap BUN Creatinine Creat Clearance w eGFR POC Glucometer Random Glucose Serum Osmolality Lactic Acid Calcium Phosphorus Magnesium Ferritin Total Bilirubin AST ALT Alkaline Phosphatase Troponin I 0.06 H Total Protein Albumin Urine Color Urine Appearance Urine pH Ur Specific [place] Urine Protein Urine Glucose (UA) Urine Ketones Urine Blood Urine Nitrite Urine Bilirubin Urine Urobilinogen Ur Leukocyte Esterase Urine Osmolality Ur Random Sodium Ur Random Potassium Ur Random Chloride Ur Random Urea Nitrogn Urine Creatinine Stool Occult Blood Digoxin Acetone, Qual Negative Influenza A (Rapid) Influenza B (Rapid) Group A Strep Rapid 09/29/18 09/29/18 09/29/18 20:16 20:19 20:19 WBC RBC Hgb Hct MCV MCH MCHC RDW Plt Count MPV Absolute Neuts (auto) Neutrophils % Neutrophils % (Manual) Band Neutrophils % Lymphocytes % Lymphocytes % (Manual) Monocytes % Monocytes % (Manual) Eosinophils % Eosinophils % (Manual) Basophils % Basophils % (Manual) Myelocytes % (Man) Promyelocytes % (Man) Blast Cells % (Manual) Nucleated RBC % Metamyelocytes Platelet Estimate Polychromasia Anisocytosis Microcytosis PT with INR INR PTT (Actin FS) Anticoagulation Therapy Puncture Site ABG pH ABG pCO2 at Pt Temp ABG pO2 at Pt Temp ABG HCO3 ABG O2 Sat (Measured) ABG O2 Content ABG Base Excess Jass Test VBG pH POC VBG pCO2 POC VBG pO2 Mixed VBG HCO3 Carboxyhemoglobin Methemoglobin O2 Delivery Device Oxygen Flow Rate Vent Mode Vent Rate Mechanical Rate Pressure Support Vent Sodium Potassium Chloride Carbon Dioxide Anion Gap BUN Creatinine Creat Clearance w eGFR POC Glucometer Random Glucose Serum Osmolality Lactic Acid 0.8 Calcium Phosphorus Magnesium Ferritin Total Bilirubin AST ALT Alkaline Phosphatase Troponin I Total Protein Albumin Urine Color Urine Appearance Urine pH Ur Specific [place] Urine Protein Urine Glucose (UA) Urine Ketones Urine Blood Urine Nitrite Urine Bilirubin Urine Urobilinogen Ur Leukocyte Esterase Urine Osmolality Ur Random Sodium Ur Random Potassium Ur Random Chloride Ur Random Urea Nitrogn Urine Creatinine Stool Occult Blood Negative Digoxin Acetone, Qual Influenza A (Rapid) Negative Influenza B (Rapid) Negative Group A Strep Rapid 09/29/18 09/29/18 09/29/18 21:15 22:00 22:00 WBC RBC Hgb Hct MCV MCH MCHC RDW Plt Count MPV Absolute Neuts (auto) Neutrophils % Neutrophils % (Manual) Band Neutrophils % Lymphocytes % Lymphocytes % (Manual) Monocytes % Monocytes % (Manual) Eosinophils % Eosinophils % (Manual) Basophils % Basophils % (Manual) Myelocytes % (Man) Promyelocytes % (Man) Blast Cells % (Manual) Nucleated RBC % Metamyelocytes Platelet Estimate Polychromasia Anisocytosis Microcytosis PT with INR INR PTT (Actin FS) Anticoagulation Therapy Puncture Site ABG pH ABG pCO2 at Pt Temp ABG pO2 at Pt Temp ABG HCO3 ABG O2 Sat (Measured) ABG O2 Content ABG Base Excess Jass Test VBG pH POC VBG pCO2 POC VBG pO2 Mixed VBG HCO3 Carboxyhemoglobin Methemoglobin O2 Delivery Device Oxygen Flow Rate Vent Mode Vent Rate Mechanical Rate Pressure Support Vent Sodium Potassium Chloride Carbon Dioxide Anion Gap BUN Creatinine Creat Clearance w eGFR POC Glucometer Random Glucose Serum Osmolality 297 Lactic Acid Calcium Phosphorus Magnesium Ferritin Total Bilirubin AST ALT Alkaline Phosphatase Troponin I Total Protein Albumin Urine Color Yellow Urine Appearance Clear Urine pH 5.0 Ur Specific [place] 1.012 Urine Protein Negative Urine Glucose (UA) Negative Urine Ketones Negative Urine Blood Negative Urine Nitrite Negative Urine Bilirubin Negative Urine Urobilinogen Negative Ur Leukocyte Esterase Negative Urine Osmolality Ur Random Sodium 28 L Ur Random Potassium 44.3 Ur Random Chloride 55 L Ur Random Urea Nitrogn 381 Urine Creatinine 141.0 Stool Occult Blood Digoxin < 0.06 L Acetone, Qual Influenza A (Rapid) Influenza B (Rapid) Group A Strep Rapid 09/29/18 09/29/18 09/30/18 22:00 22:20 00:50 WBC RBC Hgb Hct MCV MCH MCHC RDW Plt Count MPV Absolute Neuts (auto) Neutrophils % Neutrophils % (Manual) Band Neutrophils % Lymphocytes % Lymphocytes % (Manual) Monocytes % Monocytes % (Manual) Eosinophils % Eosinophils % (Manual) Basophils % Basophils % (Manual) Myelocytes % (Man) Promyelocytes % (Man) Blast Cells % (Manual) Nucleated RBC % Metamyelocytes Platelet Estimate Polychromasia Anisocytosis Microcytosis PT with INR INR PTT (Actin FS) Anticoagulation Therapy No Result Required. Puncture Site Right radial ABG pH 7.38 ABG pCO2 at Pt Temp 32.5 L ABG pO2 at Pt Temp 83.6 ABG HCO3 18.6 L ABG O2 Sat (Measured) 96.2 ABG O2 Content 10.5 L ABG Base Excess -5.4 L Jass Test Positive VBG pH POC VBG pCO2 POC VBG pO2 Mixed VBG HCO3 Carboxyhemoglobin 1.0 Methemoglobin 0.2 L O2 Delivery Device N/c Oxygen Flow Rate 2l Vent Mode No Result Required. Vent Rate No Result Required. Mechanical Rate No Result Required. Pressure Support Vent No Result Required. Sodium Potassium Chloride Carbon Dioxide Anion Gap BUN Creatinine Creat Clearance w eGFR POC Glucometer Random Glucose Serum Osmolality Lactic Acid Calcium Phosphorus Magnesium Ferritin Total Bilirubin AST ALT Alkaline Phosphatase Troponin I Total Protein Albumin Urine Color Urine Appearance Urine pH Ur Specific [place] Urine Protein Urine Glucose (UA) Urine Ketones Urine Blood Urine Nitrite Urine Bilirubin Urine Urobilinogen Ur Leukocyte Esterase Urine Osmolality 318 Ur Random Sodium Ur Random Potassium Ur Random Chloride Ur Random Urea Nitrogn Urine Creatinine Stool Occult Blood Digoxin Acetone, Qual Influenza A (Rapid) Influenza B (Rapid) Group A Strep Rapid Negative 09/30/18 09/30/18 09/30/18 05:30 05:30 05:43 WBC 1.9 L* RBC 2.36 L Hgb 7.6 L Hct 22.7 L D MCV 96.3 H MCH 32.2 MCHC 33.5 RDW 16.9 H Plt Count 28 L* D MPV 7.8 Absolute Neuts (auto) 1.2 L Neutrophils % 64.2 Neutrophils % (Manual) 70.6 Band Neutrophils % 0.0 Lymphocytes % 31.7 D Lymphocytes % (Manual) 27.4 Monocytes % 3.2 L Monocytes % (Manual) 1 L Eosinophils % 0.3 Eosinophils % (Manual) 0.0 Basophils % 0.6 Basophils % (Manual) 0.0 Myelocytes % (Man) 1 Promyelocytes % (Man) 0 Blast Cells % (Manual) 0 Nucleated RBC % 0 Metamyelocytes 0 Platelet Estimate Decreased Polychromasia 1+ Anisocytosis 1+ Microcytosis 1+ PT with INR INR PTT (Actin FS) Anticoagulation Therapy Puncture Site ABG pH ABG pCO2 at Pt Temp ABG pO2 at Pt Temp ABG HCO3 ABG O2 Sat (Measured) ABG O2 Content ABG Base Excess Jass Test VBG pH POC VBG pCO2 POC VBG pO2 Mixed VBG HCO3 Carboxyhemoglobin Methemoglobin O2 Delivery Device Oxygen Flow Rate Vent Mode Vent Rate Mechanical Rate Pressure Support Vent Sodium 140 Potassium 4.0 Chloride 111 H Carbon Dioxide 21 Anion Gap 7 L BUN 41 H Creatinine 3.3 H Creat Clearance w eGFR 19.63 POC Glucometer 93 Random Glucose 100 Serum Osmolality Lactic Acid Calcium 7.3 L Phosphorus 3.9 Magnesium 1.8 Ferritin 549.9 H Total Bilirubin 0.4 AST 25 ALT 43 Alkaline Phosphatase 92 Troponin I Total Protein 5.3 L Albumin 2.6 L Urine Color Urine Appearance Urine pH Ur Specific [place] Urine Protein Urine Glucose (UA) Urine Ketones Urine Blood Urine Nitrite Urine Bilirubin Urine Urobilinogen Ur Leukocyte Esterase Urine Osmolality Ur Random Sodium Ur Random Potassium Ur Random Chloride Ur Random Urea Nitrogn Urine Creatinine Stool Occult Blood Digoxin Acetone, Qual Influenza A (Rapid) Influenza B (Rapid) Group A Strep Rapid Active Medications Generic Name Dose Route Start Last Admin Trade Name Freq PRN Reason Stop Dose Admin Acetaminophen 1,000 mg 09/30/18 03:24 Tylenol - PO Q6H PRN PAIN LEVEL 1-5 Amiodarone HCl 200 mg 09/30/18 10:00 09/30/18 10:55 Cordarone - PO 200 mg DAILY SHAHRIAR Administration Chlorhexidine Gluconate 1 applic 09/30/18 22:00 Hibiclens For Decolonization - TP HS SHAHRIAR Sodium Chloride 1,000 mls @ 75 mls/hr 09/30/18 03:15 09/30/18 03:15 Normal Saline - IV 75 mls/hr ASDIR SHAHRIAR Administration Piperacillin Sod/Tazobactam 50 mls @ 100 mls/hr 09/30/18 11:00 09/30/18 11:00 Sod 2.25 gm/ Dextrose IVPB 100 mls/hr Q8H-IV SHAHRIAR Administration Protocol Vancomycin HCl 1,000 mg in 250 mls @ 166.667 mls/hr 09/30/18 11:15 09/30/18 12:06 Vancomycin (Pre-Docked) IVPB 09/30/18 12:44 166.667 mls/hr ONCE ONE Administration Protocol Doxycycline Hyclate 100 mg/ 100 mls @ 50 mls/hr 09/30/18 11:15 Dextrose IVPB BID SHAHRIAR Morphine Sulfate 2 mg 09/30/18 03:10 Morphine Sulfate IVPUSH Q6H PRN PAIN LEVEL 6-10 Mupirocin 1 applic 09/30/18 10:00 09/30/18 10:55 Bactroban Ointment (For Decolonization) - NS 10/05/18 09:59 1 applic BID SHAHRIAR Administration Oseltamivir Phosphate 30 mg 09/30/18 11:15 Tamiflu - PO 10/05/18 11:14 BID SHAHRIAR Rivaroxaban 15 mg 09/30/18 18:00 Xarelto PO 1800 SHAHRIAR ASSESSMENT/PLAN: This is a 53 year old male with a past medical history of congestive heart failure s/p ICD, CAD, DM, CKD, paroxysmal atrial fibrillation on xarelto, presented with a productive cough with brown sputum and flu like symptoms found to be severely pancytopenic. Pancytopenia sepsis secondary to pneumonia lung nodules with mediastinal lymph nodes acute on chronic CKD hx systolic CHF atrial fibrillation -pancytopenia probable due to ineffective hemaptopoiesis due to sepsis secondary to pna; vs viral syndrome -due to albumin/globulin ratio <1 and family history of bone cancer in brother ; will get MDS work up including SPEP, UPEP, immunofixation, immunoglobulin levels; -monitor cbc; transfuse 1uPRBC; procrit x1; transfuse platelets <10; monitor for bleed; repeat coags -cont IV antibiotics ; tamiflu -HIV pending Dispo: We will continue to follow the patient. Thank you for this consultative opportunity. Visit type - Emergency Visit Emergency Visit: Yes ED Registration Date: 09/30/18 Care time: The patient presented to the Emergency Department on the above date and was hospitalized for further evaluation of their emergent condition. - New Patient This patient is new to me today: Yes Date on this admission: 09/30/18 - Critical Care Critical Care patient: Yes Total Critical Care Time (in minutes): 45 Critical Care Statement: The care of this patient involved high complexity decision making to prevent further life threatening deterioration of the patient 's condition and/or to evaluate & treat vital organ system(s) failure or risk of failure.
[2018-09-30] MEDS: DOXYCYCLINE INJECTION 100 MG in DEXTROSE 5%-WATER - 100 ML IVPB SCH ×2 (12:38→21:51)
[2018-09-30] MEDS: OSELTAMIVIR PHOSPHATE 30 MG CAPSULE PO SCH ×2 (12:38→21:51)
--- NOTE | 2018-09-30 12:38 | PN ---
Teaching Attending Note Name of Resident: Suyapa Saunders ATTENDING PHYSICIAN STATEMENT I saw and evaluated the patient. I reviewed the resident's note and discussed the case with the resident. I agree with the resident's findings and plan as documented. SUBJECTIVE: Patient seen and examined in the ICU. Reports congested cough and some pleuritic type CP. Still SOB. Very dark and purulent sputum. No hemoptysis. Still with generalized body aches. Hemodynamics have been borderline (unsure of baseline). Not currently on pressors. Intake & Output 09/27/18 09/28/18 09/29/18 09/30/18 23:59 23:59 23:59 23:59 Intake Total 150 Balance 150 Weight 240 lb 232 lb 3 oz Last Vital Signs Temp Pulse Resp BP Pulse Ox 98.4 F 98 H 22 H 87/67 L 98 09/30/18 02:06 09/30/18 08:00 09/30/18 08:00 09/30/18 08:00 09/30/18 09:00 Active Medications Acetaminophen (Tylenol -) 1,000 mg PO Q6H PRN PRN Reason: PAIN LEVEL 1-5 Amiodarone HCl (Cordarone -) 200 mg PO DAILY SHAHRIAR Last Admin: 09/30/18 10:55 Dose: 200 mg Chlorhexidine Gluconate (Hibiclens For Decolonization -) 1 applic TP HS SHAHRIAR Sodium Chloride (Normal Saline -) 1,000 mls @ 75 mls/hr IV ASDIR SHAHRIAR Last Admin: 09/30/18 03:15 Dose: 75 mls/hr Piperacillin Sod/Tazobactam (Sod 2.25 gm/ Dextrose) 50 mls @ 100 mls/hr IVPB Q8H-IV SHAHRIAR; Protocol Last Admin: 09/30/18 11:00 Dose: 100 mls/hr Vancomycin HCl (Vancomycin (Pre-Docked)) 1,000 mg in 250 mls @ 166.667 mls/hr IVPB ONCE ONE; Protocol Stop: 09/30/18 12:44 Last Admin: 09/30/18 12:06 Dose: 166.667 mls/hr Doxycycline Hyclate 100 mg/ (Dextrose) 100 mls @ 50 mls/hr IVPB BID SHAHRIAR Morphine Sulfate (Morphine Sulfate) 2 mg IVPUSH Q6H PRN PRN Reason: PAIN LEVEL 6-10 Mupirocin (Bactroban Ointment (For Decolonization) -) 1 applic NS BID [facility] Stop: 10/05/18 09:59 Last Admin: 09/30/18 10:55 Dose: 1 applic Oseltamivir Phosphate (Tamiflu -) 30 mg PO BID [facility] Stop: 10/05/18 11:14 Rivaroxaban (Xarelto) 15 mg PO 1800 SHAHRIAR Constitutional: Yes: Uncomfortable appearing, Mildly tachypneic at rest Eyes: Yes: Conjunctiva Clear, EOM Intact HENT: Yes: Atraumatic, Normocephalic Neck: Yes: Supple, Trachea Midline Cardiovascular: Yes: Tachycardia, S1, S2. No: JVD, Gallop Respiratory: Yes: Cough, Diminished, (+) coarse bibasilar rhonchi Gastrointestinal: Yes: Normal Bowel Sounds, Soft, Abdomen, Obese. No: Hepatomegaly, Tenderness Extremities: Yes: WNL Edema: No Peripheral Pulses WNL: Yes Neurological: Yes: Alert, Oriented, non-focal ...Motor Strength: WNL Psychiatric: Yes: Alert, Oriented Labs: Laboratory Results - last 24 hr 09/29/18 09/29/18 09/29/18 19:50 19:50 19:50 WBC 2.1 L RBC 2.98 L Hgb 9.8 L Hct 28.7 L MCV 96.3 H MCH 32.9 MCHC 34.2 RDW 17.0 H Plt Count 42 L MPV 8.3 Absolute Neuts (auto) 1.5 Neutrophils % 75.4 Neutrophils % (Manual) Band Neutrophils % Lymphocytes % 19.5 Lymphocytes % (Manual) Monocytes % 3.4 L Monocytes % (Manual) Eosinophils % 0.9 Eosinophils % (Manual) Basophils % 0.8 Basophils % (Manual) Myelocytes % (Man) Promyelocytes % (Man) Blast Cells % (Manual) Nucleated RBC % 0 Metamyelocytes Platelet Estimate Polychromasia Anisocytosis Microcytosis PT with INR 12.80 INR 1.08 PTT (Actin FS) 30.5 Anticoagulation Therapy Puncture Site ABG pH ABG pCO2 at Pt Temp ABG pO2 at Pt Temp ABG HCO3 ABG O2 Sat (Measured) ABG O2 Content ABG Base Excess Jass Test VBG pH POC VBG pCO2 POC VBG pO2 Mixed VBG HCO3 Carboxyhemoglobin Methemoglobin O2 Delivery Device Oxygen Flow Rate Vent Mode Vent Rate Mechanical Rate Pressure Support Vent Sodium 139 Potassium 4.4 Chloride 107 Carbon Dioxide 22 Anion Gap 10 BUN 42 H Creatinine 3.4 H Creat Clearance w eGFR 18.97 POC Glucometer Random Glucose 100 Serum Osmolality Lactic Acid Calcium 8.0 L Phosphorus Magnesium Ferritin Total Bilirubin 0.7 AST 35 ALT 60 Alkaline Phosphatase 119 H Troponin I Total Protein 6.6 Albumin 3.2 L Urine Color Urine Appearance Urine pH Ur Specific [place] Urine Protein Urine Glucose (UA) Urine Ketones Urine Blood Urine Nitrite Urine Bilirubin Urine Urobilinogen Ur Leukocyte Esterase Urine Osmolality Ur Random Sodium Ur Random Potassium Ur Random Chloride Ur Random Urea Nitrogn Urine Creatinine Stool Occult Blood Digoxin Acetone, Qual Influenza A (Rapid) Influenza B (Rapid) Group A Strep Rapid 09/29/18 09/29/18 09/29/18 19:50 19:50 20:00 WBC RBC Hgb Hct MCV MCH MCHC RDW Plt Count MPV Absolute Neuts (auto) Neutrophils % Neutrophils % (Manual) Band Neutrophils % Lymphocytes % Lymphocytes % (Manual) Monocytes % Monocytes % (Manual) Eosinophils % Eosinophils % (Manual) Basophils % Basophils % (Manual) Myelocytes % (Man) Promyelocytes % (Man) Blast Cells % (Manual) Nucleated RBC % Metamyelocytes Platelet Estimate Polychromasia Anisocytosis Microcytosis PT with INR INR PTT (Actin FS) Anticoagulation Therapy Puncture Site ABG pH ABG pCO2 at Pt Temp ABG pO2 at Pt Temp ABG HCO3 ABG O2 Sat (Measured) ABG O2 Content ABG Base Excess Jass Test VBG pH 7.28 L POC VBG pCO2 46.0 POC VBG pO2 38.9 Mixed VBG HCO3 21.0 Carboxyhemoglobin Methemoglobin O2 Delivery Device Oxygen Flow Rate Vent Mode Vent Rate Mechanical Rate Pressure Support Vent Sodium Potassium Chloride Carbon Dioxide Anion Gap BUN Creatinine Creat Clearance w eGFR POC Glucometer Random Glucose Serum Osmolality Lactic Acid Calcium Phosphorus Magnesium Ferritin Total Bilirubin AST ALT Alkaline Phosphatase Troponin I 0.06 H Total Protein Albumin Urine Color Urine Appearance Urine pH Ur Specific [place] Urine Protein Urine Glucose (UA) Urine Ketones Urine Blood Urine Nitrite Urine Bilirubin Urine Urobilinogen Ur Leukocyte Esterase Urine Osmolality Ur Random Sodium Ur Random Potassium Ur Random Chloride Ur Random Urea Nitrogn Urine Creatinine Stool Occult Blood Digoxin Acetone, Qual Negative Influenza A (Rapid) Influenza B (Rapid) Group A Strep Rapid 09/29/18 09/29/18 09/29/18 20:16 20:19 20:19 WBC RBC Hgb Hct MCV MCH MCHC RDW Plt Count MPV Absolute Neuts (auto) Neutrophils % Neutrophils % (Manual) Band Neutrophils % Lymphocytes % Lymphocytes % (Manual) Monocytes % Monocytes % (Manual) Eosinophils % Eosinophils % (Manual) Basophils % Basophils % (Manual) Myelocytes % (Man) Promyelocytes % (Man) Blast Cells % (Manual) Nucleated RBC % Metamyelocytes Platelet Estimate Polychromasia Anisocytosis Microcytosis PT with INR INR PTT (Actin FS) Anticoagulation Therapy Puncture Site ABG pH ABG pCO2 at Pt Temp ABG pO2 at Pt Temp ABG HCO3 ABG O2 Sat (Measured) ABG O2 Content ABG Base Excess Jass Test VBG pH POC VBG pCO2 POC VBG pO2 Mixed VBG HCO3 Carboxyhemoglobin Methemoglobin O2 Delivery Device Oxygen Flow Rate Vent Mode Vent Rate Mechanical Rate Pressure Support Vent Sodium Potassium Chloride Carbon Dioxide Anion Gap BUN Creatinine Creat Clearance w eGFR POC Glucometer Random Glucose Serum Osmolality Lactic Acid 0.8 Calcium Phosphorus Magnesium Ferritin Total Bilirubin AST ALT Alkaline Phosphatase Troponin I Total Protein Albumin Urine Color Urine Appearance Urine pH Ur Specific [place] Urine Protein Urine Glucose (UA) Urine Ketones Urine Blood Urine Nitrite Urine Bilirubin Urine Urobilinogen Ur Leukocyte Esterase Urine Osmolality Ur Random Sodium Ur Random Potassium Ur Random Chloride Ur Random Urea Nitrogn Urine Creatinine Stool Occult Blood Negative Digoxin Acetone, Qual Influenza A (Rapid) Negative Influenza B (Rapid) Negative Group A Strep Rapid 09/29/18 09/29/18 09/29/18 21:15 22:00 22:00 WBC RBC Hgb Hct MCV MCH MCHC RDW Plt Count MPV Absolute Neuts (auto) Neutrophils % Neutrophils % (Manual) Band Neutrophils % Lymphocytes % Lymphocytes % (Manual) Monocytes % Monocytes % (Manual) Eosinophils % Eosinophils % (Manual) Basophils % Basophils % (Manual) Myelocytes % (Man) Promyelocytes % (Man) Blast Cells % (Manual) Nucleated RBC % Metamyelocytes Platelet Estimate Polychromasia Anisocytosis Microcytosis PT with INR INR PTT (Actin FS) Anticoagulation Therapy Puncture Site ABG pH ABG pCO2 at Pt Temp ABG pO2 at Pt Temp ABG HCO3 ABG O2 Sat (Measured) ABG O2 Content ABG Base Excess Jass Test VBG pH POC VBG pCO2 POC VBG pO2 Mixed VBG HCO3 Carboxyhemoglobin Methemoglobin O2 Delivery Device Oxygen Flow Rate Vent Mode Vent Rate Mechanical Rate Pressure Support Vent Sodium Potassium Chloride Carbon Dioxide Anion Gap BUN Creatinine Creat Clearance w eGFR POC Glucometer Random Glucose Serum Osmolality 297 Lactic Acid Calcium Phosphorus Magnesium Ferritin Total Bilirubin AST ALT Alkaline Phosphatase Troponin I Total Protein Albumin Urine Color Yellow Urine Appearance Clear Urine pH 5.0 Ur Specific [place]on 1.012 Urine Protein Negative Urine Glucose (UA) Negative Urine Ketones Negative Urine Blood Negative Urine Nitrite Negative Urine Bilirubin Negative Urine Urobilinogen Negative Ur Leukocyte Esterase Negative Urine Osmolality Ur Random Sodium 28 L Ur Random Potassium 44.3 Ur Random Chloride 55 L Ur Random Urea Nitrogn 381 Urine Creatinine 141.0 Stool Occult Blood Digoxin < 0.06 L Acetone, Qual Influenza A (Rapid) Influenza B (Rapid) Group A Strep Rapid 09/29/18 09/29/18 09/30/18 22:00 22:20 00:50 WBC RBC Hgb Hct MCV MCH MCHC RDW Plt Count MPV Absolute Neuts (auto) Neutrophils % Neutrophils % (Manual) Band Neutrophils % Lymphocytes % Lymphocytes % (Manual) Monocytes % Monocytes % (Manual) Eosinophils % Eosinophils % (Manual) Basophils % Basophils % (Manual) Myelocytes % (Man) Promyelocytes % (Man) Blast Cells % (Manual) Nucleated RBC % Metamyelocytes Platelet Estimate Polychromasia Anisocytosis Microcytosis PT with INR INR PTT (Actin FS) Anticoagulation Therapy No Result Required. Puncture Site Right radial ABG pH 7.38 ABG pCO2 at Pt Temp 32.5 L ABG pO2 at Pt Temp 83.6 ABG HCO3 18.6 L ABG O2 Sat (Measured) 96.2 ABG O2 Content 10.5 L ABG Base Excess -5.4 L Jass Test Positive VBG pH POC VBG pCO2 POC VBG pO2 Mixed VBG HCO3 Carboxyhemoglobin 1.0 Methemoglobin 0.2 L O2 Delivery Device N/c Oxygen Flow Rate 2l Vent Mode No Result Required. Vent Rate No Result Required. Mechanical Rate No Result Required. Pressure Support Vent No Result Required. Sodium Potassium Chloride Carbon Dioxide Anion Gap BUN Creatinine Creat Clearance w eGFR POC Glucometer Random Glucose Serum Osmolality Lactic Acid Calcium Phosphorus Magnesium Ferritin Total Bilirubin AST ALT Alkaline Phosphatase Troponin I Total Protein Albumin Urine Color Urine Appearance Urine pH Ur Specific [place] Urine Protein Urine Glucose (UA) Urine Ketones Urine Blood Urine Nitrite Urine Bilirubin Urine Urobilinogen Ur Leukocyte Esterase Urine Osmolality 318 Ur Random Sodium Ur Random Potassium Ur Random Chloride Ur Random Urea Nitrogn Urine Creatinine Stool Occult Blood Digoxin Acetone, Qual Influenza A (Rapid) Influenza B (Rapid) Group A Strep Rapid Negative 09/30/18 09/30/18 09/30/18 05:30 05:30 05:43 WBC 1.9 L* RBC 2.36 L Hgb 7.6 L Hct 22.7 L D MCV 96.3 H MCH 32.2 MCHC 33.5 RDW 16.9 H Plt Count 28 L* D MPV 7.8 Absolute Neuts (auto) 1.2 L Neutrophils % 64.2 Neutrophils % (Manual) 70.6 Band Neutrophils % 0.0 Lymphocytes % 31.7 D Lymphocytes % (Manual) 27.4 Monocytes % 3.2 L Monocytes % (Manual) 1 L Eosinophils % 0.3 Eosinophils % (Manual) 0.0 Basophils % 0.6 Basophils % (Manual) 0.0 Myelocytes % (Man) 1 Promyelocytes % (Man) 0 Blast Cells % (Manual) 0 Nucleated RBC % 0 Metamyelocytes 0 Platelet Estimate Decreased Polychromasia 1+ Anisocytosis 1+ Microcytosis 1+ PT with INR INR PTT (Actin FS) Anticoagulation Therapy Puncture Site ABG pH ABG pCO2 at Pt Temp ABG pO2 at Pt Temp ABG HCO3 ABG O2 Sat (Measured) ABG O2 Content ABG Base Excess Jass Test VBG pH POC VBG pCO2 POC VBG pO2 Mixed VBG HCO3 Carboxyhemoglobin Methemoglobin O2 Delivery Device Oxygen Flow Rate Vent Mode Vent Rate Mechanical Rate Pressure Support Vent Sodium 140 Potassium 4.0 Chloride 111 H Carbon Dioxide 21 Anion Gap 7 L BUN 41 H Creatinine 3.3 H Creat Clearance w eGFR 19.63 POC Glucometer 93 Random Glucose 100 Serum Osmolality Lactic Acid Calcium 7.3 L Phosphorus 3.9 Magnesium 1.8 Ferritin 549.9 H Total Bilirubin 0.4 AST 25 ALT 43 Alkaline Phosphatase 92 Troponin I Total Protein 5.3 L Albumin 2.6 L Urine Color Urine Appearance Urine pH Ur Specific [place] Urine Protein Urine Glucose (UA) Urine Ketones Urine Blood Urine Nitrite Urine Bilirubin Urine Urobilinogen Ur Leukocyte Esterase Urine Osmolality Ur Random Sodium Ur Random Potassium Ur Random Chloride Ur Random Urea Nitrogn Urine Creatinine Stool Occult Blood Digoxin Acetone, Qual Influenza A (Rapid) Influenza B (Rapid) Group A Strep Rapid Assessment/Plan Sepsis due to CAP Bilateral CAP History of severely reduced LV Function / global hypokinesis CHF S/P ICD AFIB CAD IDDM CKD Gout Pancytopenia Severe OSAS ABX per ID Tamiflu O2 as needed Rate control Follow cultures Strict I & O Hold anti-hypertensive agents for now Would continue judicious IVF resuscitation Pressors for MAP < 65 Renal evaluation has been called Pain control Heme evaluation called Will need formal CPAP re-titration after discharge Continued ICU monitoring due too tenuous overall status and possible need for pressors Critical Care Total Critical Care Time (in minutes): 65 Critical Care Statement: The care of this patient involved high complexity decision making to prevent further life threatening deterioration of the patient 's condition and/or to evaluate & treat vital organ system(s) failure or risk of failure.
--- NOTE | 2018-09-30 12:50 | CON.CARD ---
Consult Consult Specialty:: Cardiology Referred by:: ICU team Reason for Consultation:: Cardiac evaluation - History of Present Illness Chief Complaint: SOB and chest pain History of Present Illness: Patient is a 53 year old male with underlying history of DM, PAF on DOAC ( Xarelto), CAD with history of [place], PPM (patient is unsure of maker of device and whether it is an ICD), LV systolic dysfunction with severely reduced LVEF, HTN, hypercholesterolemia and CKD who presents with cough productive of yellow sputum and shortness of breath. He also complained of fever, headache, poor appetite and vomiting. He was seen in ICU. Chest CT revealed small nodular densities left lower, left upper, right middle and right lower lobe. He continues to have shortness of breath and productive cough. He also complains of intermittent chest discomfort. He denies nausea, vomiting, diarrhea or abdominal pain at the moment. He denies headache or lightheadedness. Nursing Education Specialist: Prabhakar Cano MD, [facility] - History Source History Provided By: Patient, Medical Record Limitations to Obtaining History: No Limitations - Past Medical History Cardio/Vascular: Yes: AFIB, CAD, CHF, HTN, Hyperlipdemia, [place] Renal/: Yes: Renal Failure (has not seen epidemiology intern in several years ) Rheumatology: Yes: Gout Endocrine: Yes: Diabetes Mellitus - Past Surgical History Past Surgical History: Yes: Cataract Removal, Permanent Pacemaker (2011) - Alcohol/Substance Use Hx Alcohol Use: No - Smoking History Smoking history: Former smoker Have you smoked in the past 12 months: No If you are a former smoker, when did you quit?: 2008 - Social History Usual Living Arrangement: With Spouse ADL: Independent History of Recent Travel: No Home Medications - Allergies Allergies/Adverse Reactions: Allergies Allergy/AdvReac Type Severity Reaction Status Date / Time amlodipine besylate Allergy Severe Closed Verified 09/29/18 19:14 [[facility]] throat/Swollen lips - Home Medications Home Medications: Ambulatory Orders Amiodarone HCl 200 mg PO DAILY 10/12/16 Carvedilol [Coreg] 25 mg PO BID 10/12/16 Rivaroxaban [Xarelto -] 15 mg PO DAILY 10/12/16 Spironolactone 25 mg PO DAILY 10/12/16 Insulin Degludec [Tresiba Flextouch U-100] 40 unit SQ DAILY 11/13/16 Colchicine 0.6 mg PO DAILY 09/30/18 Potassium Chloride [K-Tab ER] 20 meq PO DAILY 09/30/18 Rosuvastatin [Crestor -] 10 mg PO DAILY 09/30/18 Sacubitril/Valsartan [Entresto 49 mg-51 mg Tablet] 1 each PO BID 09/30/18 Torsemide 20 mg PO BID 09/30/18 Family Disease History - Family Disease History Family Disease History: Diabetes: Sister, Heart Disease: Mother, Sister, CA: Brother (Bone), Other: Father (Liver) Review of Systems - Review of Systems Constitutional: reports: Fever. denies: Chills Cardiovascular: reports: Chest Pain, Shortness of Breath. denies: Palpitations Respiratory: reports: Cough, SOB, SOB on Exertion. denies: Hemoptysis, Orthopnea, PND Gastrointestinal: denies: Abdominal Pain, Constipation, Diarrhea, Melena, Nausea , Rectal Bleeding, Vomiting Musculoskeletal: denies: Back Pain, Joint Pain Neurological: denies: Dizziness, Headache, Seizure, Syncope Vital Signs: Vital Signs Temperature 98.4 F 09/30/18 02:06 Pulse Rate 98 H 09/30/18 08:00 Respiratory Rate 22 H 09/30/18 08:00 Blood Pressure 87/67 L 09/30/18 08:00 O2 Sat by Pulse Oximetry (%) 98 09/30/18 09:00 Eyes: Yes: PERRL HENT: Yes: Atraumatic Neck: Yes: Supple Respiratory: Yes: Diminished Gastrointestinal: Yes: Normal Bowel Sounds, Soft. No: Tenderness Cardiovascular: Yes: Regular Rate and Rhythm JVD: No PMI: Non-Displaced Heart Sounds: Yes: S1, S2. No: Gallop Murmur: Yes: Systolic Murmur, Grade 1 Edema: No - Other Data Labs, Other Data: CBC, BMP 09/30/18 05:30 09/30/18 05:30 INR, PTT INR 1.08 (0.83-1.09) 09/29/18 19:50 Troponin, BNP 09/29/18 19:50 Troponin I 0.06 H Sinus tachycardia, LBBB Imaging - Results Chest X-ray: Report Reviewed Cat Scan: Report Reviewed (Chest CT: Patchy consolidation) EKG: Report Reviewed Assessment/Plan 1. Clinical presentation suggests respiratory community acquired pneumonia with sepsis syndrome, ? flu 2. Pancytopenia due to above 3. LV systolic dysfunction with severely reduced LVEF 4. Acute on chronic class 2-3 NYHA classsification LV failure 5. Probable ICD although patient reports PPM 6. PAF on DOAC (Xarelto), [id number] score of 4 7. DM 8. HTN 9. Hypercholesterolemia 10. CKD PLAN: 1. Antibiotic coverage 2. Steroids and nebulizer 3. Tamiflu 4. Continue Amiodarone 200 mg QD 5. Entresto and Spironolactone have been held until further instruction 6. Restart Carvedilol as tolerated, BP permitting 7. Continue Xarelto 8. Obtain medical record from Dr. Prabhakar Cano including device info 9. Monitor CBC, renal function and electrolytes 10. Continue statin therapy Guarded Nato Britt MD
--- NOTE | 2018-09-30 16:41 | PN ---
Teaching Attending Note Name of Resident: Tiara Gatica ATTENDING PHYSICIAN STATEMENT I saw and evaluated the patient. I reviewed the resident's note and discussed the case with the resident. I agree with the resident's findings and plan as documented. SUBJECTIVE: Patient seen and examined Last Vital Signs Temp Pulse Resp BP Pulse Ox 98.6 F 92 H 22 H 112/72 98 09/30/18 10:00 09/30/18 14:00 09/30/18 08:00 09/30/18 14:00 09/30/18 09:00 This is a 53 year old male with a past medical history of congestive heart failure s/p ICD, CAD, DM, CKD, paroxysmal atrial fibrillation on xarelto, presented with a productive cough , nausea, emesis, diarrhea, bilateral pulmonary infiltrates and pancytopenia . ROS - headaches, no diplopia, epistaxis, dysphagia, positive cough, sputum, positive tired, fatigued, chest discomfort positive nausea, emesis, diarrhea, difficulty with voiding , back pains P.E. Ill appearing , tachypneic at rest HEENT: LUCINA, EOM Intact Oropharynx: No thrush, No mucositis Neck: Supple Nodes: Without adenopathy Cor: RSR, systolic murmur No gallops Lungs: rhonchi, anteriorly and posteriorly, with bronchial breath sounds Abd: Soft, Normal bowel sounds, No organomegaly, distended testes distended , uncircumcised Ext:No significant edema Skin: No rashes, Integument intact CBC, BMP 09/30/18 05:30 09/30/18 05:30 INR, PTT INR 1.08 (0.83-1.09) 09/29/18 19:50 Current Medications Generic Name Dose Route Start Last Admin Trade Name Freq PRN Reason Stop Dose Admin Acetaminophen 1,000 mg 09/30/18 03:24 Tylenol - PO Q6H PRN PAIN LEVEL 1-5 Amiodarone HCl 200 mg 09/30/18 10:00 09/30/18 10:55 Cordarone - PO 200 mg DAILY SHAHRIAR Administration Chlorhexidine Gluconate 1 applic 09/30/18 22:00 Hibiclens For Decolonization - TP HS SHAHRIAR Sodium Chloride 1,000 mls @ 75 mls/hr 09/30/18 03:15 09/30/18 03:15 Normal Saline - IV 75 mls/hr ASDIR SHAHRIAR Administration Piperacillin Sod/Tazobactam 50 mls @ 100 mls/hr 09/30/18 11:00 09/30/18 11:00 Sod 2.25 gm/ Dextrose IVPB 100 mls/hr Q8H-IV SHAHRIAR Administration Protocol Doxycycline Hyclate 100 mg/ 100 mls @ 50 mls/hr 09/30/18 11:15 09/30/18 12:38 Dextrose IVPB 50 mls/hr BID SHAHRIAR Administration Morphine Sulfate 2 mg 09/30/18 03:10 Morphine Sulfate IVPUSH Q6H PRN PAIN LEVEL 6-10 Mupirocin 1 applic 09/30/18 10:00 09/30/18 10:55 Bactroban Ointment (For Decolonization) - NS 10/05/18 09:59 1 applic BID SHAHRIAR Administration Oseltamivir Phosphate 30 mg 09/30/18 11:15 09/30/18 12:38 Tamiflu - PO 10/05/18 11:14 30 mg BID SHAHRIAR Administration Rivaroxaban 15 mg 09/30/18 18:00 Xarelto PO 1800 SHAHRIAR Impression: Sepsis - Pancytopenia CAP , multilobar atrial fib LV dysfunction CKD/ESTEVAN IDDM OSAS review of peripheral smeap - RBC- noromochromic, normocytic, microcytic ,Lai Jowell bodies WBC- 6 lobed PMN's , numerous 5 lobed Poly's toxic granulation Platelets - small and diminished Picture suggests toxic suppression of bone marrow from sepsis In view of borderline Hb/Hct and significant dysnea and tachypnea with LV cardiac dysfunction will transfuse one unit of packed cells. Will also plan for G-Csf. Would monitor CBC, obtain , B-12, folate, TSH, HbE OBJECTIVE: ASSESSMENT AND PLAN:
--- NOTE | 2018-09-30 16:52 | CONSULT ---
Consult Consult Specialty:: Nephrology Reason for Consultation:: CKD - History of Present Illness Chief Complaint: cough History of Present Illness: Pt is a 53 year old male with pmhx of CKD, DM, a-fib, HTN, HLD, CHF, ppm who presents to the ER complaining of cough, fever and chills. He has had the symptoms for the last few weeks and they have been getting worse. He complains of poor appetite. He was found to be in renal failure and I was called to evaluate him. He does have history of CKD and follows with Dr Byrd. Pt is a poor historian. He was on diuretics for CHF. He was found to be hypotensive in the ER. He was admitted to the ICU for sepsis. He denies nsaid use. 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 in several years ), Renal Inusuff Rheumatology: Yes: Gout Endocrine: Yes: Diabetes Mellitus - Past Surgical History Past Surgical History: Yes: Cataract Removal, Permanent Pacemaker (2011) - Alcohol/Substance Use Hx Alcohol Use: No - Smoking History Smoking history: Former smoker Have you smoked in the past 12 months: No If you are a former smoker, when did you quit?: 2008 - Social History Usual Living Arrangement: With Spouse ADL: Independent History of Recent Travel: No Home Medications - Allergies Allergies/Adverse Reactions: Allergies Allergy/AdvReac Type Severity Reaction Status Date / Time amlodipine besylate Allergy Severe Closed Verified 09/29/18 19:14 [[facility]] throat/Swollen lips - Home Medications Home Medications: Ambulatory Orders Amiodarone HCl 200 mg PO DAILY 10/12/16 Carvedilol [Coreg] 25 mg PO BID 10/12/16 Rivaroxaban [Xarelto -] 15 mg PO DAILY 10/12/16 Spironolactone 25 mg PO DAILY 10/12/16 Insulin Degludec [Tresiba Flextouch U-100] 40 unit SQ DAILY 11/13/16 Colchicine 0.6 mg PO DAILY 09/30/18 Potassium Chloride [K-Tab ER] 20 meq PO DAILY 09/30/18 Rosuvastatin [Crestor -] 10 mg PO DAILY 09/30/18 Sacubitril/Valsartan [Entresto 49 mg-51 mg Tablet] 1 each PO BID 09/30/18 Torsemide 20 mg PO BID 09/30/18 Family Disease History - Family Disease History Family Disease History: Diabetes: Sister, Heart Disease: Mother, Sister, CA: Brother (Bone), Other: Father (Liver) Review of Systems - Review of Systems Constitutional: reports: Chills, Fever, Loss of Appetite, Malaise Eyes: reports: No Symptoms HENT: reports: No Symptoms Neck: reports: No Symptoms Cardiovascular: reports: Shortness of Breath Respiratory: reports: Cough, SOB, SOB on Exertion Gastrointestinal: reports: No Symptoms Genitourinary: reports: No Symptoms Musculoskeletal: reports: No Symptoms Integumentary: reports: No Symptoms Neurological: reports: No Symptoms Endocrine: reports: No Symptoms Hematology/Lymphatic: reports: No Symptoms Psychiatric: reports: No Symptoms Physical Exam Vital Signs: Vital Signs Temperature 98.6 F 09/30/18 10:00 Pulse Rate 92 H 09/30/18 14:00 Respiratory Rate 22 H 09/30/18 08:00 Blood Pressure 112/72 09/30/18 14:00 O2 Sat by Pulse Oximetry (%) 98 09/30/18 09:00 Constitutional: Yes: Calm Eyes: Yes: Conjunctiva Clear HENT: Yes: Atraumatic Cardiovascular: Yes: S1, S2 Respiratory: Yes: On Nasal O2, Rhonchi Gastrointestinal: Yes: Soft Renal/: Yes: WNL Musculoskeletal: Yes: Muscle Weakness Edema: LLE: Trace, RLE: Trace Neurological: Yes: Oriented Psychiatric: Yes: Oriented Labs: CBC, BMP 09/30/18 05:30 09/30/18 05:30 Laboratory Tests 09/29/18 09/29/18 09/29/18 19:50 19:50 20:16 WBC 2.1 L Hgb Plt Count 42 L Sodium Potassium Chloride Anion Gap BUN Creatinine 3.4 H Urine Protein Urine Blood Ur Random Sodium Stool Occult Blood Negative 09/29/18 09/29/18 09/30/18 22:00 22:00 05:30 WBC 1.9 L* Hgb 7.6 L Plt Count 28 L* D Sodium Potassium Chloride Anion Gap BUN Creatinine Urine Protein Negative Urine Blood Negative Ur Random Sodium 28 L Stool Occult Blood 09/30/18 05:30 WBC Hgb Plt Count Sodium 140 Potassium 4.0 Chloride 111 H Anion Gap 7 L BUN 41 H Creatinine 3.3 H Urine Protein Urine Blood Ur Random Sodium Stool Occult Blood Imaging - Results Chest X-ray: Report Reviewed Cat Scan: Report Reviewed Ultrasound: Report Reviewed Problem List - Problems (1) Acute kidney injury superimposed on chronic kidney disease Code(s): N17.9 - ACUTE KIDNEY FAILURE, UNSPECIFIED; N18.9 - CHRONIC KIDNEY DISEASE, UNSPECIFIED (2) Anemia Code(s): D64.9 - ANEMIA, UNSPECIFIED Qualifiers: Anemia type: due to chronic kidney disease Chronic kidney disease stage: unspecified stage Qualified Code(s): N18.9 - Chronic kidney disease, unspecified; D63.1 - Anemia in chronic kidney disease (3) CAD (coronary artery disease) Code(s): I25.10 - ATHSCL HEART DISEASE OF [place] CORONARY ARTERY W/O ANG PCTRS (4) Chronic kidney disease Code(s): N18.9 - CHRONIC KIDNEY DISEASE, UNSPECIFIED Qualifiers: Chronic kidney disease stage: unspecified stage Qualified Code(s): N18.9 - Chronic kidney disease, unspecified (5) Diabetes Code(s): E11.9 - TYPE 2 DIABETES MELLITUS WITHOUT COMPLICATIONS Qualifiers: Diabetes mellitus type: type 1 Diabetes mellitus complication status: with kidney complications Diabetes mellitus complication detail: with chronic kidney disease Chronic kidney disease stage: unspecified stage Qualified Code(s): E10.22 - Type 1 diabetes mellitus with diabetic chronic kidney disease (6) Fever Code(s): R50.9 - FEVER, UNSPECIFIED Qualifiers: Fever type: unspecified Qualified Code(s): R50.9 - Fever, unspecified (7) Hypotension Code(s): I95.9 - HYPOTENSION, UNSPECIFIED Qualifiers: Hypotension type: other hypotension type Qualified Code(s): I95.89 - Other hypotension (8) Pancytopenia Code(s): D61.818 - OTHER PANCYTOPENIA (9) Severe sepsis Code(s): A41.9 - SEPSIS, UNSPECIFIED ORGANISM; R65.20 - SEVERE SEPSIS WITHOUT SEPTIC SHOCK (10) Thrombocytopenia Code(s): D69.6 - THROMBOCYTOPENIA, UNSPECIFIED Assessment/Plan Current Medications Generic Name Dose Route Start Last Admin Trade Name Freq PRN Reason Stop Dose Admin Acetaminophen 1,000 mg 09/30/18 03:24 Tylenol - PO Q6H PRN PAIN LEVEL 1-5 Amiodarone HCl 200 mg 09/30/18 10:00 09/30/18 10:55 Cordarone - PO 200 mg DAILY SHAHRIAR Administration Chlorhexidine Gluconate 1 applic 09/30/18 22:00 Hibiclens For Decolonization - TP HS SHAHRIAR Sodium Chloride 1,000 mls @ 75 mls/hr 09/30/18 03:15 09/30/18 03:15 Normal Saline - IV 75 mls/hr ASDIR SHAHRIAR Administration Piperacillin Sod/Tazobactam 50 mls @ 100 mls/hr 09/30/18 11:00 09/30/18 11:00 Sod 2.25 gm/ Dextrose IVPB 100 mls/hr Q8H-IV SHAHRIAR Administration Protocol Doxycycline Hyclate 100 mg/ 100 mls @ 50 mls/hr 09/30/18 11:15 09/30/18 12:38 Dextrose IVPB 50 mls/hr BID SHAHRIAR Administration Morphine Sulfate 2 mg 09/30/18 03:10 Morphine Sulfate IVPUSH Q6H PRN PAIN LEVEL 6-10 Mupirocin 1 applic 09/30/18 10:00 09/30/18 10:55 Bactroban Ointment (For Decolonization) - NS 10/05/18 09:59 1 applic BID SHAHRIAR Administration Oseltamivir Phosphate 30 mg 09/30/18 11:15 09/30/18 12:38 Tamiflu - PO 10/05/18 11:14 30 mg BID SHAHRIAR Administration Rivaroxaban 15 mg 09/30/18 18:00 Xarelto PO 1800 SHAHRIAR Tbo-Filgrastim 480 mcg 09/30/18 16:45 Granix - SQ 09/30/18 16:46 ONCE ONE Impression 1. CKD 2. ESTEVAN 3. sepsis 4. PNA 5. pancytopenia 6. CHF 7. a-fib 8. hypotension 9. gout 10. r/o influenza Plan - renal function starting to improve - agree with hydration, however monitor volume status - follow cultures - cont to monitor renal function - ua neg for blood or protein - estevan likely from pre-renal disease - avoid nsaids - avoid nephrotoxins - hematology eval Dr Cardenas
[2018-09-30] MEDS ORDERED: TBO-FILGRASTIM 480 MCG/0.8 ML DISP.SYRIN SQ ONE (17:00)
[2018-09-30] MEDS ORDERED: guaiFENesin/D-M SUGAR-FREE/ACLHOL-FREE 118 ML BOTTLE PO PRN (17:34)
[2018-09-30] MEDS ORDERED: RIVAROXABAN 15 MG TABLET PO SCH (18:00)
[2018-09-30] MEDS: ACETAMINOPHEN 500 MG TABLET (FP) PO PRN ×2 (18:23→20:19)
[2018-09-30] MEDS: CHLORHEXIDINE GLUCONATE 4% CLEANSER FOR DECOLONIZATION TP SCH (21:54)
[2018-09-30] MEDS ORDERED: VANCOMYCIN 1,250 MG in DEXTROSE 5%-WATER - 250 ML IVPB ONE (22:00)
[2018-10-01] MEDS ORDERED: PIPERACILLIN/TAZOBACTAM 2.25 GM VIAL IVPB ONE ×2 (02:34→10:47)
[2018-10-01] MEDS ORDERED: DEXTROSE 5%-WATER - 50 ML IVPB ONE ×2 (02:35→10:48)
[2018-10-01] MEDS: PIPERACILLIN/TAZOB 2.25 GM 2.25 GM in DEXTROSE 5%-WATER - 50 ML IVPB SCH ×3 (02:54→17:14)
[2018-10-01] MEDS: SODIUM CHLORIDE 1,000 ML IV SCH (02:56)
[2018-10-01 05:54] LABS: BASO % 0.3 % (0-2.0); EOS % 1.9 % (0-4.5); HEMATOCRIT 26.9 % (35.4-49); HEMOGLOBIN 9.2 GM/dL (11.7-16.9); LYMPH % 8.2 % (8-40); MCH 32.9 pg (25.7-33.7); MCHC 34.2 g/dl (32.0-35.9); MEAN CELL VOLUME 96.2 fl (80-96); MEAN PLT VOLUME 9.1 fl (7.5-11.1); MONO % 2.2 % (3.8-10.2); NEUT % 87.4 % (42.8-82.8); RDW 16.9 % (11.9-15.9); WHITE BLOOD COUNT 8.6 K/mm3 (4.0-10.0)
[2018-10-01 06:00] LABS: PLATELET COUNT 29 K/MM3 (134-434)
[2018-10-01 06:08] LABS: INR 1.5 (0.83-1.09); PROTHROMBIN TIME (PATIENT) 17.8 SEC (9.7-13.0)
[2018-10-01 06:11] LABS: ACTIVATED PTT 32.6 SECONDS (25.2-36.5)
[2018-10-01 06:43] LABS: ALBUMIN 2.7 g/dl (3.4-5.0); ALK PHOS 102 U/L (45-117); ANION GAP 10 MMOL/L (8-16); BILIRUBIN,TOTAL 1.4 mg/dL (0.2-1); BLOOD UREA NITROGEN 39 mg/dL (7-18); CALCIUM 8.1 mg/dL (8.5-10.1); CHLORIDE 111 mmol/L (98-107); CO2 20 mmol/L (21-32); CREATININE 3.2 mg/dL (0.55-1.3); GLUCOSE,RANDOM 79 mg/dL (74-106); MAGNESIUM 1.7 mg/dL (1.8-2.4); PHOSPHOROUS 3.2 mg/dL (2.5-4.9); POTASSIUM 3.8 mmol/L (3.5-5.1); SGOT/AST 26 U/L (15-37); SGPT/ALT 44 U/L (13-61); SODIUM 141 mmol/L (136-145); TOT PROT 5.8 g/dl (6.4-8.2)
--- NOTE | 2018-10-01 08:02 | PN ---
Physical Exam: SUBJECTIVE: Patient seen and examined this AM in ICU. Continues to have cough productive of yellow phlegm. Febrile overnight, was given tylenol. Otherwise, No new complaints overnight. OBJECTIVE: Vital Signs Period Temp Pulse Resp BP Sys/Feldman Pulse Ox Last 24 Hr 98.2 F-101.1 F 92-110 18-22 87-112/67-88 98-98 GENERAL: A&Ox3, NAD, primarily egyptian speaking HEAD: NCAT EYES: PERRL, EOMI ENT: Moist mucous membranes NECK: Supple, R IJ placed with CDI dressing LUNGS: Diminished breath sounds at the bases, no wheezes, no crackles HEART: Regular rate and rhythm, S1, S2 without murmur ABDOMEN: Soft, nontender, nondistended, + bowel sounds, no guarding EXTREMITIES: No edema NEUROLOGICAL: Cranial nerves II through XII grossly intact. Normal speech SKIN: Warm, dry Laboratory Results - last 24 hr 09/30/18 10/01/18 10/01/18 21:59 04:56 05:30 WBC 8.6 RBC 2.80 L Hgb 9.2 L Hct 26.9 L D MCV 96.2 H MCH 32.9 MCHC 34.2 RDW 16.9 H Plt Count 29 L* MPV 9.1 D Absolute Neuts (auto) 7.5 Neutrophils % 87.4 H D Neutrophils % (Manual) Band Neutrophils % Lymphocytes % 8.2 D Lymphocytes % (Manual) Monocytes % 2.2 L Monocytes % (Manual) Eosinophils % 1.9 D Eosinophils % (Manual) Basophils % 0.3 Basophils % (Manual) Myelocytes % (Man) Promyelocytes % (Man) Blast Cells % (Manual) Nucleated RBC % 0 Metamyelocytes Platelet Estimate Polychromasia Anisocytosis Microcytosis PT with INR INR PTT (Actin FS) Sodium Potassium Chloride Carbon Dioxide Anion Gap BUN Creatinine Creat Clearance w eGFR POC Glucometer 104 85 Random Glucose Calcium Phosphorus Magnesium Ferritin Total Bilirubin AST ALT Alkaline Phosphatase Total Protein Albumin Zpjqm-7-Eyweurkyg (%) Xyzts-5-Vatkmemda (%) Beta Globulins (%) Gamma Globulins (%) M-[place] % Vitamin B12 Serum Folate Ur Random Potassium HIV 1&2 Antibody Screen HIV P24 Antigen Ref Test Comments Blood Type Antibody Screen Crossmatch 10/01/18 10/01/18 10/01/18 05:30 05:30 05:30 WBC RBC Hgb Hct MCV MCH MCHC RDW Plt Count MPV Absolute Neuts (auto) Neutrophils % Neutrophils % (Manual) Band Neutrophils % Lymphocytes % Lymphocytes % (Manual) Monocytes % Monocytes % (Manual) Eosinophils % Eosinophils % (Manual) Basophils % Basophils % (Manual) Myelocytes % (Man) Promyelocytes % (Man) Blast Cells % (Manual) Nucleated RBC % Metamyelocytes Platelet Estimate Polychromasia Anisocytosis Microcytosis PT with INR 17.80 H INR 1.50 H PTT (Actin FS) 32.6 Sodium 141 Potassium 3.8 Chloride 111 H Carbon Dioxide 20 L Anion Gap 10 BUN 39 H Creatinine 3.2 H Creat Clearance w eGFR 20.34 POC Glucometer Random Glucose 79 Calcium 8.1 L Phosphorus 3.2 Magnesium 1.7 L Ferritin Total Bilirubin 1.4 H AST 26 ALT 44 Alkaline Phosphatase 102 Total Protein 5.8 L Albumin 2.7 L Lzxzn-2-Ugdiupjyg (%) Jcfcq-8-Wtdhhcboi (%) Beta Globulins (%) Gamma Globulins (%) M-[place] % Vitamin B12 984 Serum Folate 5 Ur Random Potassium HIV 1&2 Antibody Screen HIV P24 Antigen Ref Test Comments Blood Type Antibody Screen Crossmatch Microbiology 09/29/18 19:50 Blood - Peripheral Venous Blood Culture - Preliminary NO GROWTH OBTAINED AFTER 24 HOURS, INCUBATION TO CONTINUE FOR 4 DAYS. 09/29/18 19:50 Blood - Peripheral Venous Blood Culture - Preliminary NO GROWTH OBTAINED AFTER 24 HOURS, INCUBATION TO CONTINUE FOR 4 DAYS. 09/30/18 10:56 Nasopharyngeal Swab Respiratory Virus (PCR) - Preliminary Active Medications Acetaminophen (Tylenol -) 1,000 mg PO Q6H PRN PRN Reason: PAIN LEVEL 1-5 Last Admin: 09/30/18 20:19 Dose: 1,000 mg Amiodarone HCl (Cordarone -) 200 mg PO DAILY COUNT INCLUDES THE [facility] Last Admin: 09/30/18 10:55 Dose: 200 mg Chlorhexidine Gluconate (Hibiclens For Decolonization -) 1 applic TP HS COUNT INCLUDES THE [facility] Last Admin: 09/30/18 21:54 Dose: 1 applic Guaifenesin (Diabetic Tussin Dm -) 5 ml PO Q6H PRN PRN Reason: COUGH Sodium Chloride (Normal Saline -) 1,000 mls @ 75 mls/hr IV ASDIR SHAHRIAR Last Admin: 02/20/19 02:56 Dose: 75 mls/hr Piperacillin Sod/Tazobactam (Sod 2.25 gm/ Dextrose) 50 mls @ 100 mls/hr IVPB Q8H-IV SHAHRIAR; Protocol Last Admin: 10/01/18 02:54 Dose: 100 mls/hr Doxycycline Hyclate 100 mg/ (Dextrose) 100 mls @ 50 mls/hr IVPB BID COUNT INCLUDES THE [facility] Last Admin: 09/30/18 21:51 Dose: 50 mls/hr Magnesium Sulfate (Magnesium Sulfate) 2 gm IVPB ONCE ONE Stop: 10/01/18 07:13 Morphine Sulfate (Morphine Sulfate) 2 mg IVPUSH Q6H PRN PRN Reason: PAIN LEVEL 6-10 Mupirocin (Bactroban Ointment (For Decolonization) -) 1 applic NS BID SHAHRIAR Stop: 10/05/18 09:59 Last Admin: 09/30/18 21:52 Dose: 1 applic Oseltamivir Phosphate (Tamiflu -) 30 mg PO BID COUNT INCLUDES THE [facility] Stop: 10/05/18 11:14 Last Admin: 09/30/18 21:51 Dose: 30 mg Rivaroxaban (Xarelto) 15 mg PO 1800 COUNT INCLUDES THE [facility] Last Admin: 09/30/18 18:55 Dose: 15 mg ASSESSMENT/PLAN: 53 y/o M with PMhx of CHF (s/p ICD on Entresto), AFIB (on Xarelto), CAD, IDDM, CKD will be admitted to ICU for further management of sepsis and HD instability. #Neuro -A&Ox3, NAD -Continue to monitor for changes in Neuro #Cardio Hypotensive, Improved Prolonged QTc Troponemia, likely demand Hx CHF (s/p ICD on Entresto), AFIB (on Xarelto), CAD -Continue NS @ 75 mls/hr -Continue home dose Xarelto, Amiodarone -Restart home dose Carvedilol -Norepinephrine Drip PRN to maintain MAP > 65, Currently off drip -Monitor CVP with goal of 8-12 -Hold home dose Furosemide, Entresto -EKG: Sinus Tachycardia, LBBB, VR 118, QTc 594 -Dr. Britt Consulted #Pulm Possible atypical PNA Hx of Severe GAY (Sleep Study in 01/27) -Duoneb PRN -Supplemental O2 to maintain Spo2 >90% -CT chest: Patchy consolidation within the left upper and lower lobe suspicious for acute pneumonia. There are also areas of atelectasis within the right middle and lower lobes. Cardiomegaly and mild mediastinal lymphadenopathy. #GI Elevated TBili, possibly reactive Elevated Alkaline phosphatase, Corrected -CT Abdomen/Pelvis: No evidence of intra-abdominal abscess or acute pathology within the abdomen or pelvis. -Diabetic diet -Ondansetron PRN for nausea -Consider imaging if TBili continues to rise #ID Sepsis 2/2 possible Atypical PNA -SIRS+ on Admission; Febrile overnight -Lactic acid 0.8 -CXR: Possible mild cephalization may be on the basis of mild volume overload. No definite infiltrate or pleural effusion is identified. -UA negative LE and Nitrite -Influenza, Group A Strep Negative -Blood, Throat, sputum, Urine Cx pending -HIV, CD3, CD4, CD8 count Pending -Tylenol for fever and pain 1-5 -Morphine 2mg Q6H PRN (Pain 6-10 at central line insertion) -Neutropenic precautions -Continue NS @ 75mls/hr -Given 1 dose with Vanco 1g, Zoysn 4.5 in ED -Continue IV Piperacillin/Tazobactam 2.25, Vancomycin 1g, Doxycycline 100mg, Oseltamivir 30mg BID (Started ABx on 09/29) -Dr. Dasilva consulted #Renal ESTEVAN on CKD, Improving Hyperchloremia, Improving -Continue NS @ 75mls/hr -Serum and urine lytes and osm noted -Calculated Fe Urea (On Torsimide) 21.7%; (< 35% suggest pre-renal disease) -Kidney/Renal US: No hydronephrosis, Increased renal cortical echogenicity b/l on the basis of medical renal disease, kidneys otherwise appear unremarkable. -Monitor I&Os, Urine Output, Cr -Dr. Cardenas consulted #Heme/Onc Pancytopenia due to Unclear etiology, Possibly sepsis, Improving -S/P 1 Unit pRBCs, Hgb responded appropriately -WBC count improving s/p neupogen -FOBT Negative -MDS workup pending; Plan for G-CSF -Trend H&H; Maintain Hgb >7.0 -Dr. Guerrero Consulted #Endo Hx of IDDM -BGMs ISS ACHS #Rheum Hx of Gout -Continue home dose Colchicine #FEN -NS @ 75 mls/hr -Replete Lytes PRN -Diabetic diet #PPx -DVT: Xarelto, SCDs Dispo: Transfer to Tele Visit type - Emergency Visit Emergency Visit: Yes ED Registration Date: 09/30/18 Care time: The patient presented to the Emergency Department on the above date and was hospitalized for further evaluation of their emergent condition. - New Patient This patient is new to me today: No - Critical Care Critical Care patient: Yes Total Critical Care Time (in minutes): 36 Critical Care Statement: The care of this patient involved high complexity decision making to prevent further life threatening deterioration of the patient 's condition and/or to evaluate & treat vital organ system(s) failure or risk of failure.
[2018-10-01 08:09] LABS: SERUM IRON SATURATION 8 % (15-55); TOTAL IRON BINDING CAPACITY 174 ug/dL (250-450); UIBC 160 ug/dL (111-343)
[2018-10-01] MEDS ORDERED: MAGNESIUM SULF 50% (8.12 MEQ/2 ML-1 GM VIAL) IVPB ONE (09:00)
[2018-10-01] MEDS: OSELTAMIVIR PHOSPHATE 30 MG CAPSULE PO SCH ×2 (10:00→22:38)
--- NOTE | 2018-10-01 10:29 | PN ---
Progress Note (short form) - Note Progress Note: Events noted pt feeling better has some abdominal pain , bloating diarrhea- less coughing less no SOB, chest pain Vital Signs - 24 hr 09/30/18 09/30/18 09/30/18 12:00 14:00 16:00 Temperature 98.2 F Pulse Rate 92 H 92 H 94 H Respiratory Rate Blood Pressure 98/82 112/72 105/79 O2 Sat by Pulse Oximetry (%) 09/30/18 09/30/18 09/30/18 18:00 20:00 21:00 Temperature 100 F H 101.1 F H Pulse Rate 110 H 104 H Respiratory 18 18 Rate Blood Pressure 103/85 102/77 O2 Sat by Pulse 98 Oximetry (%) 09/30/18 10/01/18 10/01/18 22:00 00:00 02:00 Temperature 98.9 F Pulse Rate 103 H 103 H 101 H Respiratory 18 18 18 Rate Blood Pressure 95/72 102/83 110/86 O2 Sat by Pulse Oximetry (%) 10/01/18 04:00 Temperature Pulse Rate 101 H Respiratory 18 Rate Blood Pressure 110/88 O2 Sat by Pulse Oximetry (%) Current Medications Generic Name Dose Route Start Last Admin Trade Name Freq PRN Reason Stop Dose Admin Acetaminophen 1,000 mg 09/30/18 03:24 09/30/18 20:19 Tylenol - PO 1,000 mg Q6H PRN Administration PAIN LEVEL 1-5 Amiodarone HCl 200 mg 09/30/18 10:00 09/30/18 10:55 Cordarone - PO 200 mg DAILY SHAHRIAR Administration Chlorhexidine Gluconate 1 applic 09/30/18 22:00 09/30/18 21:54 Hibiclens For Decolonization - TP 1 applic HS SHAHRIAR Administration Guaifenesin 5 ml 09/30/18 17:34 Diabetic Tussin Dm - PO Q6H PRN COUGH Sodium Chloride 1,000 mls @ 75 mls/hr 09/30/18 03:15 10/01/18 02:56 Normal Saline - IV 75 mls/hr ASDIR SHAHRIAR Administration Piperacillin Sod/Tazobactam 50 mls @ 100 mls/hr 09/30/18 11:00 10/01/18 02:54 Sod 2.25 gm/ Dextrose IVPB 100 mls/hr Q8H-IV SHAHRIAR Administration Protocol Doxycycline Hyclate 100 mg/ 100 mls @ 50 mls/hr 09/30/18 11:15 09/30/18 21:51 Dextrose IVPB 50 mls/hr BID SHAHRIAR Administration Morphine Sulfate 2 mg 09/30/18 03:10 Morphine Sulfate IVPUSH Q6H PRN PAIN LEVEL 6-10 Mupirocin 1 applic 09/30/18 10:00 09/30/18 21:52 Bactroban Ointment (For Decolonization) - NS 10/05/18 09:59 1 applic BID SHAHRIAR Administration Oseltamivir Phosphate 30 mg 09/30/18 11:15 09/30/18 21:51 Tamiflu - PO 10/05/18 11:14 30 mg BID SHAHRIAR Administration Rivaroxaban 15 mg 09/30/18 18:00 09/30/18 18:55 Xarelto PO 15 mg 1800 SHAHRIAR Administration Laboratory Results - last 24 hr 09/30/18 09/30/18 09/30/18 05:30 05:30 11:50 WBC RBC Hgb Hct MCV MCH MCHC RDW Plt Count MPV Absolute Neuts (auto) Neutrophils % Neutrophils % (Manual) 70.6 Band Neutrophils % 0.0 Lymphocytes % Lymphocytes % (Manual) 27.4 Monocytes % Monocytes % (Manual) 1 L Eosinophils % Eosinophils % (Manual) 0.0 Basophils % Basophils % (Manual) 0.0 Myelocytes % (Man) 1 Promyelocytes % (Man) 0 Blast Cells % (Manual) 0 Nucleated RBC % Metamyelocytes 0 Platelet Estimate Decreased Polychromasia 1+ Anisocytosis 1+ Microcytosis 1+ PT with INR INR PTT (Actin FS) Sodium Potassium Chloride Carbon Dioxide Anion Gap BUN Creatinine Creat Clearance w eGFR POC Glucometer Random Glucose Calcium Phosphorus Magnesium Iron 14 L TIBC 174 L Iron Saturation 8 L Total Bilirubin AST ALT Alkaline Phosphatase Total Protein Albumin Kmldp-8-Wboillbev (%) Mzisp-0-Kimpveaqn (%) Beta Globulins (%) Gamma Globulins (%) M-[place] % Vitamin B12 Serum Folate HIV 1&2 Antibody Screen Negative HIV P24 Antigen Negative Ref Test Comments Blood Type Antibody Screen Crossmatch 09/30/18 09/30/18 09/30/18 13:08 13:33 17:21 WBC RBC Hgb Hct MCV MCH MCHC RDW Plt Count MPV Absolute Neuts (auto) Neutrophils % Neutrophils % (Manual) Band Neutrophils % Lymphocytes % Lymphocytes % (Manual) Monocytes % Monocytes % (Manual) Eosinophils % Eosinophils % (Manual) Basophils % Basophils % (Manual) Myelocytes % (Man) Promyelocytes % (Man) Blast Cells % (Manual) Nucleated RBC % Metamyelocytes Platelet Estimate Polychromasia Anisocytosis Microcytosis PT with INR INR PTT (Actin FS) Sodium Potassium Chloride Carbon Dioxide Anion Gap BUN Creatinine Creat Clearance w eGFR POC Glucometer 120 91 Random Glucose Calcium Phosphorus Magnesium Iron TIBC Iron Saturation Total Bilirubin AST ALT Alkaline Phosphatase Total Protein Albumin Rjzmo-0-Enpgtxlgh (%) Cancelled Lzfhb-0-Vwzifbofb (%) Cancelled Beta Globulins (%) Cancelled Gamma Globulins (%) Cancelled M-[place] % Cancelled Vitamin B12 Serum Folate HIV 1&2 Antibody Screen HIV P24 Antigen Ref Test Comments Cancelled Blood Type Antibody Screen Crossmatch 09/30/18 09/30/18 09/30/18 17:30 18:00 21:59 WBC RBC Hgb Hct MCV MCH MCHC RDW Plt Count MPV Absolute Neuts (auto) Neutrophils % Neutrophils % (Manual) Band Neutrophils % Lymphocytes % Lymphocytes % (Manual) Monocytes % Monocytes % (Manual) Eosinophils % Eosinophils % (Manual) Basophils % Basophils % (Manual) Myelocytes % (Man) Promyelocytes % (Man) Blast Cells % (Manual) Nucleated RBC % Metamyelocytes Platelet Estimate Polychromasia Anisocytosis Microcytosis PT with INR INR PTT (Actin FS) Sodium Potassium Chloride Carbon Dioxide Anion Gap BUN Creatinine Creat Clearance w eGFR POC Glucometer 104 Random Glucose Calcium Phosphorus Magnesium Iron TIBC Iron Saturation Total Bilirubin AST ALT Alkaline Phosphatase Total Protein Albumin Kmlmy-6-Dcgmtyyoa (%) Vupfd-6-Kcasxqcrc (%) Beta Globulins (%) Gamma Globulins (%) M-[place] % Vitamin B12 Serum Folate HIV 1&2 Antibody Screen HIV P24 Antigen Ref Test Comments Blood Type O POSITIVE O POSITIVE Antibody Screen Negative Crossmatch See Detail 10/01/18 10/01/18 10/01/18 04:56 05:30 05:30 WBC 8.6 RBC 2.80 L Hgb 9.2 L Hct 26.9 L D MCV 96.2 H MCH 32.9 MCHC 34.2 RDW 16.9 H Plt Count 29 L* MPV 9.1 D Absolute Neuts (auto) 7.5 Neutrophils % 87.4 H D Neutrophils % (Manual) Band Neutrophils % Lymphocytes % 8.2 D Lymphocytes % (Manual) Monocytes % 2.2 L Monocytes % (Manual) Eosinophils % 1.9 D Eosinophils % (Manual) Basophils % 0.3 Basophils % (Manual) Myelocytes % (Man) Promyelocytes % (Man) Blast Cells % (Manual) Nucleated RBC % 0 Metamyelocytes Platelet Estimate Polychromasia Anisocytosis Microcytosis PT with INR INR PTT (Actin FS) Sodium 141 Potassium 3.8 Chloride 111 H Carbon Dioxide 20 L Anion Gap 10 BUN 39 H Creatinine 3.2 H Creat Clearance w eGFR 20.34 POC Glucometer 85 Random Glucose 79 Calcium 8.1 L Phosphorus 3.2 Magnesium 1.7 L Iron TIBC Iron Saturation Total Bilirubin 1.4 H AST 26 ALT 44 Alkaline Phosphatase 102 Total Protein 5.8 L Albumin 2.7 L Rjook-2-Vcxufuvbm (%) Grzmu-0-Ptaeogybw (%) Beta Globulins (%) Gamma Globulins (%) M-[place] % Vitamin B12 Serum Folate 5 HIV 1&2 Antibody Screen HIV P24 Antigen Ref Test Comments Blood Type Antibody Screen Crossmatch 10/01/18 10/01/18 05:30 05:30 WBC RBC Hgb Hct MCV MCH MCHC RDW Plt Count MPV Absolute Neuts (auto) Neutrophils % Neutrophils % (Manual) Band Neutrophils % Lymphocytes % Lymphocytes % (Manual) Monocytes % Monocytes % (Manual) Eosinophils % Eosinophils % (Manual) Basophils % Basophils % (Manual) Myelocytes % (Man) Promyelocytes % (Man) Blast Cells % (Manual) Nucleated RBC % Metamyelocytes Platelet Estimate Polychromasia Anisocytosis Microcytosis PT with INR 17.80 H INR 1.50 H PTT (Actin FS) 32.6 Sodium Potassium Chloride Carbon Dioxide Anion Gap BUN Creatinine Creat Clearance w eGFR POC Glucometer Random Glucose Calcium Phosphorus Magnesium Iron TIBC Iron Saturation Total Bilirubin AST ALT Alkaline Phosphatase Total Protein Albumin Wehcf-6-Vroofngxz (%) Vyanf-2-Nsxkogmrk (%) Beta Globulins (%) Gamma Globulins (%) M-[place] % Vitamin B12 984 Serum Folate HIV 1&2 Antibody Screen HIV P24 Antigen Ref Test Comments Blood Type Antibody Screen Crossmatch S1 S2 RRR Lungs decreased Abd- soft, generalised tenderness, BS+ No edema PLAN Hematology eval appreciated-- s/p PRBC and Granix Cell count improved On iv antibiotics and empiric Tamiflu respiratory virus culture and urine antigens pending Problem List - Problems (1) Pancytopenia Code(s): D61.818 - OTHER PANCYTOPENIA (2) Acute kidney injury superimposed on chronic kidney disease Code(s): N17.9 - ACUTE KIDNEY FAILURE, UNSPECIFIED; N18.9 - CHRONIC KIDNEY DISEASE, UNSPECIFIED (3) Anemia Code(s): D64.9 - ANEMIA, UNSPECIFIED Qualifiers: Qualified Code(s): N18.9 - Chronic kidney disease, unspecified; D63.1 - Anemia in chronic kidney disease (4) CAD (coronary artery disease) Code(s): I25.10 - ATHSCL HEART DISEASE OF [place] CORONARY ARTERY W/O ANG PCTRS (5) Severe sepsis Assessment/Plan: due to pneumonia Code(s): A41.9 - SEPSIS, UNSPECIFIED ORGANISM; R65.20 - SEVERE SEPSIS WITHOUT SEPTIC SHOCK
--- NOTE | 2018-10-01 10:38 | PN ---
Progress Note, Physician History of Present Illness: AWAKE, ALERT C/O ABDOMINAL BLOATING NO C/O N/V OCCASIONAL COUGH PURULENT SPUTUM NO C/O CHEST PAIN/ DYSPNEA FEBRILE OVERNIGHT WBC IMPROVED GIVEN GCSF TRANSFUSED PRBCS HIV (-) - Current Medication List Current Medications: Active Medications Acetaminophen (Tylenol -) 1,000 mg PO Q6H PRN PRN Reason: PAIN LEVEL 1-5 Last Admin: 09/30/18 20:19 Dose: 1,000 mg Amiodarone HCl (Cordarone -) 200 mg PO DAILY [facility] Last Admin: 09/30/18 10:55 Dose: 200 mg Chlorhexidine Gluconate (Hibiclens For Decolonization -) 1 applic TP HS [facility] Last Admin: 09/30/18 21:54 Dose: 1 applic Guaifenesin (Diabetic Tussin Dm -) 5 ml PO Q6H PRN PRN Reason: COUGH Sodium Chloride (Normal Saline -) 1,000 mls @ 75 mls/hr IV ASDIR [facility] Last Admin: 10/01/18 02:56 Dose: 75 mls/hr Piperacillin Sod/Tazobactam (Sod 2.25 gm/ Dextrose) 50 mls @ 100 mls/hr IVPB Q8H-IV SHAHRIAR; Protocol Last Admin: 10/01/18 02:54 Dose: 100 mls/hr Doxycycline Hyclate 100 mg/ (Dextrose) 100 mls @ 50 mls/hr IVPB BID [facility] Last Admin: 09/30/18 21:51 Dose: 50 mls/hr Morphine Sulfate (Morphine Sulfate) 2 mg IVPUSH Q6H PRN PRN Reason: PAIN LEVEL 6-10 Mupirocin (Bactroban Ointment (For Decolonization) -) 1 applic NS BID [facility] Stop: 10/05/18 09:59 Last Admin: 09/30/18 21:52 Dose: 1 applic Oseltamivir Phosphate (Tamiflu -) 30 mg PO BID [facility] Stop: 10/05/18 11:14 Last Admin: 09/30/18 21:51 Dose: 30 mg Rivaroxaban (Xarelto) 15 mg PO 1800 [facility] Last Admin: 09/30/18 18:55 Dose: 15 mg - Objective Vital Signs: Vital Signs Temperature 98.9 F 10/01/18 00:00 Pulse Rate 101 H 10/01/18 04:00 Respiratory Rate 18 10/01/18 04:00 Blood Pressure 110/88 10/01/18 04:00 O2 Sat by Pulse Oximetry (%) 98 09/30/18 21:00 Constitutional: Yes: No Distress Eyes: Yes: Conjunctiva Clear Cardiovascular: Yes: Regular Rate and Rhythm, S1, S2 Respiratory: Yes: Rhonchi, Other (+ CREPITATIIONS AT BASES) Gastrointestinal: Yes: Normal Bowel Sounds, Soft. No: Tenderness Edema: No Labs: CBC, BMP 10/01/18 05:30 10/01/18 05:30 INR, PTT INR 1.50 (0.83-1.09) H 10/01/18 05:30 Assessment/Plan PNEUMONIA / ETIOL ? VIRAL SEPSIS SECONDARY TO PNEUMONIA PANCYTOPENIA IMPROVED AFTER PRBCS, GCSF THROMBOCYTOPENIA AZOTEMIA AWAIT C/S VIRAL STUDIES CONTINUE ZOSYN/ DOXYCYCLINE/ TAMIFLU
--- NOTE | 2018-10-01 10:41 | PN ---
Teaching Attending Note Name of Resident: Suyapa Saunders ATTENDING PHYSICIAN STATEMENT I saw and evaluated the patient. I reviewed the resident's note and discussed the case with the resident. I agree with the resident's findings and plan as documented. SUBJECTIVE: Patient seen and examined in the ICU. Congested cough and pleuritic type CP is better. No hemoptysis. Still with generalized body aches, but better. Not currently on pressors. Intake & Output 09/28/18 09/29/18 09/30/18 10/01/18 23:59 23:59 23:59 23:59 Intake Total 1570 850 Balance 1570 850 Weight 240 lb 232 lb 3 oz Last Vital Signs Temp Pulse Resp BP Pulse Ox 98.9 F 101 H 18 110/88 98 10/01/18 00:00 10/01/18 04:00 10/01/18 04:00 10/01/18 04:00 09/30/18 21:00 Active Medications Acetaminophen (Tylenol -) 1,000 mg PO Q6H PRN PRN Reason: PAIN LEVEL 1-5 Last Admin: 09/30/18 20:19 Dose: 1,000 mg Amiodarone HCl (Cordarone -) 200 mg PO DAILY [facility] Last Admin: 09/30/18 10:55 Dose: 200 mg Chlorhexidine Gluconate (Hibiclens For Decolonization -) 1 applic TP HS [facility] Last Admin: 09/30/18 21:54 Dose: 1 applic Guaifenesin (Diabetic Tussin Dm -) 5 ml PO Q6H PRN PRN Reason: COUGH Sodium Chloride (Normal Saline -) 1,000 mls @ 75 mls/hr IV ASDIR SHAHRIAR Last Admin: 10/01/18 02:56 Dose: 75 mls/hr Piperacillin Sod/Tazobactam (Sod 2.25 gm/ Dextrose) 50 mls @ 100 mls/hr IVPB Q8H-IV SHAHRIAR; Protocol Last Admin: 10/01/18 02:54 Dose: 100 mls/hr Doxycycline Hyclate 100 mg/ (Dextrose) 100 mls @ 50 mls/hr IVPB BID [facility]RIAR Last Admin: 09/30/18 21:51 Dose: 50 mls/hr Morphine Sulfate (Morphine Sulfate) 2 mg IVPUSH Q6H PRN PRN Reason: PAIN LEVEL 6-10 Mupirocin (Bactroban Ointment (For Decolonization) -) 1 applic NS BID [facility] Stop: 10/05/18 09:59 Last Admin: 09/30/18 21:52 Dose: 1 applic Oseltamivir Phosphate (Tamiflu -) 30 mg PO BID [facility] Stop: 10/05/18 11:14 Last Admin: 09/30/18 21:51 Dose: 30 mg Rivaroxaban (Xarelto) 15 mg PO 1800 [facility] Last Admin: 09/30/18 18:55 Dose: 15 mg Constitutional: Yes: More comfortable, less tachypneic Eyes: Yes: Conjunctiva Clear, EOM Intact HENT: Yes: Atraumatic, Normocephalic Neck: Yes: Supple, Trachea Midline Cardiovascular: Yes: Tachycardia, S1, S2. No: JVD, Gallop Respiratory: Yes: Cough, Diminished, (+) coarse bibasilar rhonchi Gastrointestinal: Yes: Normal Bowel Sounds, Soft, Abdomen, Obese. No: Hepatomegaly, Tenderness Extremities: Yes: WNL Edema: No Peripheral Pulses WNL: Yes Neurological: Yes: Alert, Oriented, non-focal ...Motor Strength: WNL Psychiatric: Yes: Alert, Oriented Labs: Laboratory Results - last 24 hr 09/30/18 09/30/18 09/30/18 05:30 05:30 11:50 WBC RBC Hgb Hct MCV MCH MCHC RDW Plt Count MPV Absolute Neuts (auto) Neutrophils % Neutrophils % (Manual) 70.6 Band Neutrophils % 0.0 Lymphocytes % Lymphocytes % (Manual) 27.4 Monocytes % Monocytes % (Manual) 1 L Eosinophils % Eosinophils % (Manual) 0.0 Basophils % Basophils % (Manual) 0.0 Myelocytes % (Man) 1 Promyelocytes % (Man) 0 Blast Cells % (Manual) 0 Nucleated RBC % Metamyelocytes 0 Platelet Estimate Decreased Polychromasia 1+ Anisocytosis 1+ Microcytosis 1+ PT with INR INR PTT (Actin FS) Sodium Potassium Chloride Carbon Dioxide Anion Gap BUN Creatinine Creat Clearance w eGFR POC Glucometer Random Glucose Calcium Phosphorus Magnesium Iron 14 L TIBC 174 L Iron Saturation 8 L Total Bilirubin AST ALT Alkaline Phosphatase Total Protein Albumin Wicle-3-Rzxmbomat (%) Tjeyj-2-Pfwykirlz (%) Beta Globulins (%) Gamma Globulins (%) M-[place] % Vitamin B12 Serum Folate HIV 1&2 Antibody Screen Negative HIV P24 Antigen Negative Ref Test Comments Blood Type Antibody Screen Crossmatch 09/30/18 09/30/18 09/30/18 13:08 13:33 17:21 WBC RBC Hgb Hct MCV MCH MCHC RDW Plt Count MPV Absolute Neuts (auto) Neutrophils % Neutrophils % (Manual) Band Neutrophils % Lymphocytes % Lymphocytes % (Manual) Monocytes % Monocytes % (Manual) Eosinophils % Eosinophils % (Manual) Basophils % Basophils % (Manual) Myelocytes % (Man) Promyelocytes % (Man) Blast Cells % (Manual) Nucleated RBC % Metamyelocytes Platelet Estimate Polychromasia Anisocytosis Microcytosis PT with INR INR PTT (Actin FS) Sodium Potassium Chloride Carbon Dioxide Anion Gap BUN Creatinine Creat Clearance w eGFR POC Glucometer 120 91 Random Glucose Calcium Phosphorus Magnesium Iron TIBC Iron Saturation Total Bilirubin AST ALT Alkaline Phosphatase Total Protein Albumin Hodfo-2-Dsjjfmprw (%) Cancelled Uxpji-6-Ipsqxxplh (%) Cancelled Beta Globulins (%) Cancelled Gamma Globulins (%) Cancelled M-[place] % Cancelled Vitamin B12 Serum Folate HIV 1&2 Antibody Screen HIV P24 Antigen Ref Test Comments Cancelled Blood Type Antibody Screen Crossmatch 09/30/18 09/30/18 09/30/18 17:30 18:00 21:59 WBC RBC Hgb Hct MCV MCH MCHC RDW Plt Count MPV Absolute Neuts (auto) Neutrophils % Neutrophils % (Manual) Band Neutrophils % Lymphocytes % Lymphocytes % (Manual) Monocytes % Monocytes % (Manual) Eosinophils % Eosinophils % (Manual) Basophils % Basophils % (Manual) Myelocytes % (Man) Promyelocytes % (Man) Blast Cells % (Manual) Nucleated RBC % Metamyelocytes Platelet Estimate Polychromasia Anisocytosis Microcytosis PT with INR INR PTT (Actin FS) Sodium Potassium Chloride Carbon Dioxide Anion Gap BUN Creatinine Creat Clearance w eGFR POC Glucometer 104 Random Glucose Calcium Phosphorus Magnesium Iron TIBC Iron Saturation Total Bilirubin AST ALT Alkaline Phosphatase Total Protein Albumin Zogkg-1-Vkkedixko (%) Xjfwy-5-Xodaatfwj (%) Beta Globulins (%) Gamma Globulins (%) M-[place] % Vitamin B12 Serum Folate HIV 1&2 Antibody Screen HIV P24 Antigen Ref Test Comments Blood Type O POSITIVE O POSITIVE Antibody Screen Negative Crossmatch See Detail 10/01/18 10/01/18 10/01/18 04:56 05:30 05:30 WBC 8.6 RBC 2.80 L Hgb 9.2 L Hct 26.9 L D MCV 96.2 H MCH 32.9 MCHC 34.2 RDW 16.9 H Plt Count 29 L* MPV 9.1 D Absolute Neuts (auto) 7.5 Neutrophils % 87.4 H D Neutrophils % (Manual) Band Neutrophils % Lymphocytes % 8.2 D Lymphocytes % (Manual) Monocytes % 2.2 L Monocytes % (Manual) Eosinophils % 1.9 D Eosinophils % (Manual) Basophils % 0.3 Basophils % (Manual) Myelocytes % (Man) Promyelocytes % (Man) Blast Cells % (Manual) Nucleated RBC % 0 Metamyelocytes Platelet Estimate Polychromasia Anisocytosis Microcytosis PT with INR INR PTT (Actin FS) Sodium 141 Potassium 3.8 Chloride 111 H Carbon Dioxide 20 L Anion Gap 10 BUN 39 H Creatinine 3.2 H Creat Clearance w eGFR 20.34 POC Glucometer 85 Random Glucose 79 Calcium 8.1 L Phosphorus 3.2 Magnesium 1.7 L Iron TIBC Iron Saturation Total Bilirubin 1.4 H AST 26 ALT 44 Alkaline Phosphatase 102 Total Protein 5.8 L Albumin 2.7 L Ekpjs-9-Lzewgsobc (%) Jhgst-8-Bagiyjpew (%) Beta Globulins (%) Gamma Globulins (%) M-[place] % Vitamin B12 Serum Folate 5 HIV 1&2 Antibody Screen HIV P24 Antigen Ref Test Comments Blood Type Antibody Screen Crossmatch 10/01/18 10/01/18 05:30 05:30 WBC RBC Hgb Hct MCV MCH MCHC RDW Plt Count MPV Absolute Neuts (auto) Neutrophils % Neutrophils % (Manual) Band Neutrophils % Lymphocytes % Lymphocytes % (Manual) Monocytes % Monocytes % (Manual) Eosinophils % Eosinophils % (Manual) Basophils % Basophils % (Manual) Myelocytes % (Man) Promyelocytes % (Man) Blast Cells % (Manual) Nucleated RBC % Metamyelocytes Platelet Estimate Polychromasia Anisocytosis Microcytosis PT with INR 17.80 H INR 1.50 H PTT (Actin FS) 32.6 Sodium Potassium Chloride Carbon Dioxide Anion Gap BUN Creatinine Creat Clearance w eGFR POC Glucometer Random Glucose Calcium Phosphorus Magnesium Iron TIBC Iron Saturation Total Bilirubin AST ALT Alkaline Phosphatase Total Protein Albumin Xmenq-7-Jrhnuxafq (%) Qinsx-7-Nsqaqvobs (%) Beta Globulins (%) Gamma Globulins (%) M-[place] % Vitamin B12 984 Serum Folate HIV 1&2 Antibody Screen HIV P24 Antigen Ref Test Comments Blood Type Antibody Screen Crossmatch Assessment/Plan Sepsis due to CAP Bilateral CAP History of severely reduced LV Function / global hypokinesis CHF S/P ICD AFIB CAD IDDM CKD Gout Pancytopenia possibly due to sepsis Severe OSAS ABX per ID Tamiflu O2 as needed Rate control Follow final cultures Strict I & O Pain control Will need formal CPAP re-titration after discharge Cardiac Telemetry monitoring Dr Guevara
[2018-10-01] MEDS ORDERED: PT OWN MED DRAWER 7, Y5N ONE ×2 (10:47→22:07)
[2018-10-01] MEDS: AMIODARONE HCL 200 MG TABLET (FP) PO SCH (11:18)
[2018-10-01] MEDS: DOXYCYCLINE INJECTION 100 MG in DEXTROSE 5%-WATER - 100 ML IVPB SCH ×2 (11:21→22:38)
[2018-10-01] MEDS: MUPIROCIN 2% TOPICAL OINTMENT FOR DECOLONIZATION NS SCH ×2 (11:59→22:10)
--- NOTE | 2018-10-01 12:16 | PN ---
Progress Note, Physician History of Present Illness: Pt seen and examined at bedside. He is awake and alert. He says that he feels much better than he did yesterday. - Current Medication List Current Medications: Active Medications Acetaminophen (Tylenol -) 1,000 mg PO Q6H PRN PRN Reason: PAIN LEVEL 1-5 Last Admin: 09/30/18 20:19 Dose: 1,000 mg Amiodarone HCl (Cordarone -) 200 mg PO DAILY [facility] Last Admin: 10/01/18 11:18 Dose: 200 mg Carvedilol (Coreg -) 25 mg PO BID [facility] Chlorhexidine Gluconate (Hibiclens For Decolonization -) 1 applic TP HS [facility] Last Admin: 09/30/18 21:54 Dose: 1 applic Guaifenesin (Diabetic Tussin Dm -) 5 ml PO Q6H PRN PRN Reason: COUGH Sodium Chloride (Normal Saline -) 1,000 mls @ 75 mls/hr IV ASDIR [facility] Last Admin: 10/01/18 02:56 Dose: 75 mls/hr Piperacillin Sod/Tazobactam (Sod 2.25 gm/ Dextrose) 50 mls @ 100 mls/hr IVPB Q8H-IV [facility]; Protocol Last Admin: 10/01/18 11:00 Dose: 100 mls/hr Doxycycline Hyclate 100 mg/ (Dextrose) 100 mls @ 50 mls/hr IVPB BID [facility] Last Admin: 10/01/18 11:21 Dose: 50 mls/hr Morphine Sulfate (Morphine Sulfate) 2 mg IVPUSH Q6H PRN PRN Reason: PAIN LEVEL 6-10 Mupirocin (Bactroban Ointment (For Decolonization) -) 1 applic NS BID [facility] Stop: 10/05/18 09:59 Last Admin: 10/01/18 11:59 Dose: Not Given Oseltamivir Phosphate (Tamiflu -) 30 mg PO BID [facility] Stop: 10/05/18 11:14 Last Admin: 10/01/18 10:00 Dose: 30 mg Rivaroxaban (Xarelto) 15 mg PO 1800 [facility] Last Admin: 09/30/18 18:55 Dose: 15 mg - Objective Vital Signs: Vital Signs Temperature 98.9 F 10/01/18 00:00 Pulse Rate 101 H 10/01/18 04:00 Respiratory Rate 18 10/01/18 04:00 Blood Pressure 110/88 10/01/18 04:00 O2 Sat by Pulse Oximetry (%) 98 09/30/18 21:00 Constitutional: Yes: Calm Eyes: Yes: Conjunctiva Clear HENT: Yes: Atraumatic Neck: Yes: Supple Cardiovascular: Yes: S1, S2 Respiratory: Yes: CTA Bilaterally Gastrointestinal: Yes: Soft Genitourinary: Yes: WNL Musculoskeletal: Yes: WNL Edema: No Neurological: Yes: Oriented Psychiatric: Yes: Oriented Labs: CBC, BMP 10/01/18 05:30 10/01/18 05:30 INR, PTT INR 1.50 (0.83-1.09) H 10/01/18 05:30 Problem List - Problems (1) Acute kidney injury superimposed on chronic kidney disease Code(s): N17.9 - ACUTE KIDNEY FAILURE, UNSPECIFIED; N18.9 - CHRONIC KIDNEY DISEASE, UNSPECIFIED (2) Anemia Code(s): D64.9 - ANEMIA, UNSPECIFIED Qualifiers: Anemia type: due to chronic kidney disease Chronic kidney disease stage: unspecified stage Qualified Code(s): N18.9 - Chronic kidney disease, unspecified; D63.1 - Anemia in chronic kidney disease (3) CAD (coronary artery disease) Code(s): I25.10 - ATHSCL HEART DISEASE OF [place] CORONARY ARTERY W/O ANG PCTRS (4) Chronic kidney disease Code(s): N18.9 - CHRONIC KIDNEY DISEASE, UNSPECIFIED Qualifiers: Chronic kidney disease stage: unspecified stage Qualified Code(s): N18.9 - Chronic kidney disease, unspecified (5) Diabetes Code(s): E11.9 - TYPE 2 DIABETES MELLITUS WITHOUT COMPLICATIONS Qualifiers: Diabetes mellitus type: type 1 Diabetes mellitus complication status: with kidney complications Diabetes mellitus complication detail: with chronic kidney disease Chronic kidney disease stage: unspecified stage Qualified Code(s): E10.22 - Type 1 diabetes mellitus with diabetic chronic kidney disease (6) Fever Code(s): R50.9 - FEVER, UNSPECIFIED Qualifiers: Fever type: unspecified Qualified Code(s): R50.9 - Fever, unspecified (7) Hypotension Code(s): I95.9 - HYPOTENSION, UNSPECIFIED Qualifiers: Hypotension type: other hypotension type Qualified Code(s): I95.89 - Other hypotension (8) Pancytopenia Code(s): D61.818 - OTHER PANCYTOPENIA (9) Severe sepsis Code(s): A41.9 - SEPSIS, UNSPECIFIED ORGANISM; R65.20 - SEVERE SEPSIS WITHOUT SEPTIC SHOCK (10) Thrombocytopenia Code(s): D69.6 - THROMBOCYTOPENIA, UNSPECIFIED Assessment/Plan Current Medications Generic Name Dose Route Start Last Admin Trade Name Freq PRN Reason Stop Dose Admin Acetaminophen 1,000 mg 09/30/18 03:24 09/30/18 20:19 Tylenol - PO 1,000 mg Q6H PRN Administration PAIN LEVEL 1-5 Amiodarone HCl 200 mg 09/30/18 10:00 10/01/18 11:18 Cordarone - PO 200 mg DAILY [facility] Administration Carvedilol 25 mg 10/01/18 11:45 Coreg - PO BID [facility] Chlorhexidine Gluconate 1 applic 09/30/18 22:00 09/30/18 21:54 Hibiclens For Decolonization - TP 1 applic HS [facility] Administration Guaifenesin 5 ml 09/30/18 17:34 Diabetic Tussin Dm - PO Q6H PRN COUGH Sodium Chloride 1,000 mls @ 75 mls/hr 09/30/18 03:15 10/01/18 02:56 Normal Saline - IV 75 mls/hr ASDIR [facility] Administration Piperacillin Sod/Tazobactam 50 mls @ 100 mls/hr 09/30/18 11:00 10/01/18 11:00 Sod 2.25 gm/ Dextrose IVPB 100 mls/hr Q8H-IV [facility] Administration Protocol Doxycycline Hyclate 100 mg/ 100 mls @ 50 mls/hr 09/30/18 11:15 10/01/18 11:21 Dextrose IVPB 50 mls/hr BID [facility] Administration Morphine Sulfate 2 mg 09/30/18 03:10 Morphine Sulfate IVPUSH Q6H PRN PAIN LEVEL 6-10 Mupirocin 1 applic 09/30/18 10:00 10/01/18 11:59 Bactroban Ointment (For Decolonization) - NS 10/05/18 09:59 Not Given BID [facility] Oseltamivir Phosphate 30 mg 09/30/18 11:15 10/01/18 10:00 Tamiflu - PO 10/05/18 11:14 30 mg BID [facility] Administration Rivaroxaban 15 mg 09/30/18 18:00 09/30/18 18:55 Xarelto PO 15 mg 1800 [facility] Administration Laboratory Tests 09/30/18 11:50 HIV 1&2 Antibody Screen Negative HIV P24 Antigen Negative Impression 1. CKD 2. ESTEVAN 3. sepsis 4. PNA 5. pancytopenia 6. CHF 7. a-fib 8. hypotension 9. gout 10. r/o influenza Plan - renal function improving - monitor volume status closely as he is in fluids - monitor platelets - ua neg for blood or protein - estevan likely from pre-renal disease - avoid nsaids - avoid nephrotoxins Dr Cardenas
[2018-10-01 13:01] LABS: MACROCYTOSIS 0; PLATELET ESTIMATE DECREASED; TEAR DROP CELLS 1+
[2018-10-01 13:07] LABS: ANISOCYTOSIS 1+
[2018-10-01] MEDS: CARVEDILOL 25 MG TABLET (FP) PO SCH ×2 (13:41→22:36)
--- NOTE | 2018-10-01 14:05 | PN ---
Physical Exam: SUBJECTIVE: Patient seen and examined; with diffuse abdominal pain and distention after eating; no fevers; hemoglobin rise with adequate response after 1UPRBC; wbc rise with epogen. No fevers ON OBJECTIVE: Vital Signs Period Temp Pulse Resp BP Sys/F[place]man Pulse Ox Last 24 Hr 98.2 F-101.1 F 94-110 18-18 95-110/72-88 98 GENERAL: The patient is awake, alert, and fully oriented, in acute distress due to abdominal distention LUNGS: rhonchi scattered HEART: Regular rate and rhythm, S1, S2 without murmur, rub or gallop. ABDOMEN:very distended; tender to palpation EXTREMITIES: 2+ pulses, warm, well-perfused, no edema. NEUROLOGICAL: Cranial nerves II through XII grossly intact. Normal speech, gait not observed. PSYCH: Normal mood, normal affect. SKIN: Warm, dry, normal turgor, no rashes or lesions noted Laboratory Results - last 24 hr 09/30/18 09/30/18 09/30/18 05:30 11:50 13:33 WBC RBC Hgb Hct MCV MCH MCHC RDW Plt Count MPV Absolute Neuts (auto) Neutrophils % Neutrophils % (Manual) Band Neutrophils % Lymphocytes % Lymphocytes % (Manual) Monocytes % Monocytes % (Manual) Eosinophils % Eosinophils % (Manual) Basophils % Basophils % (Manual) Myelocytes % (Man) Promyelocytes % (Man) Blast Cells % (Manual) Nucleated RBC % Metamyelocytes Hypochromia Platelet Estimate Polychromasia Poikilocytosis Anisocytosis Microcytosis Macrocytosis Tear Drop Cells [place] Cells PT with INR INR PTT (Actin FS) Sodium Potassium Chloride Carbon Dioxide Anion Gap BUN Creatinine Creat Clearance w eGFR POC Glucometer Random Glucose Calcium Phosphorus Magnesium Iron 14 L TIBC 174 L Iron Saturation 8 L Total Bilirubin AST ALT Alkaline Phosphatase Total Protein Albumin Xetqr-6-Rvzfbdqmv (%) Cancelled Scsve-7-Abotcwlgw (%) Cancelled Beta Globulins (%) Cancelled Gamma Globulins (%) Cancelled M-[place] % Cancelled Vitamin B12 Serum Folate HIV 1&2 Antibody Screen Negative HIV P24 Antigen Negative Ref Test Comments Cancelled Blood Type Antibody Screen Crossmatch 09/30/18 09/30/18 09/30/18 17:21 17:30 18:00 WBC RBC Hgb Hct MCV MCH MCHC RDW Plt Count MPV Absolute Neuts (auto) Neutrophils % Neutrophils % (Manual) Band Neutrophils % Lymphocytes % Lymphocytes % (Manual) Monocytes % Monocytes % (Manual) Eosinophils % Eosinophils % (Manual) Basophils % Basophils % (Manual) Myelocytes % (Man) Promyelocytes % (Man) Blast Cells % (Manual) Nucleated RBC % Metamyelocytes Hypochromia Platelet Estimate Polychromasia Poikilocytosis Anisocytosis Microcytosis Macrocytosis Tear Drop Cells [place] Cells PT with INR INR PTT (Actin FS) Sodium Potassium Chloride Carbon Dioxide Anion Gap BUN Creatinine Creat Clearance w eGFR POC Glucometer 91 Random Glucose Calcium Phosphorus Magnesium Iron TIBC Iron Saturation Total Bilirubin AST ALT Alkaline Phosphatase Total Protein Albumin Srzok-9-Dzkscvdcn (%) Mbmtm-0-Nrbqkguet (%) Beta Globulins (%) Gamma Globulins (%) M-[place] % Vitamin B12 Serum Folate HIV 1&2 Antibody Screen HIV P24 Antigen Ref Test Comments Blood Type O POSITIVE O POSITIVE Antibody Screen Negative Crossmatch See Detail 09/30/18 10/01/18 10/01/18 21:59 04:56 05:30 WBC 8.6 RBC 2.80 L Hgb 9.2 L Hct 26.9 L D MCV 96.2 H MCH 32.9 MCHC 34.2 RDW 16.9 H Plt Count 29 L* MPV 9.1 D Absolute Neuts (auto) 7.5 Neutrophils % 87.4 H D Neutrophils % (Manual) 76.0 Band Neutrophils % 3.0 Lymphocytes % 8.2 D Lymphocytes % (Manual) 17.0 D Monocytes % 2.2 L Monocytes % (Manual) 1 L Eosinophils % 1.9 D Eosinophils % (Manual) 2.0 D Basophils % 0.3 Basophils % (Manual) 0.0 Myelocytes % (Man) 1 Promyelocytes % (Man) 0 Blast Cells % (Manual) 0 Nucleated RBC % 0 Metamyelocytes 0 Hypochromia 1+ Platelet Estimate Decreased Polychromasia 1+ Poikilocytosis 1+ Anisocytosis 1+ Microcytosis 1+ Macrocytosis 0 Tear Drop Cells 1+ [place]sey Cells 1+ PT with INR INR PTT (Actin FS) Sodium Potassium Chloride Carbon Dioxide Anion Gap BUN Creatinine Creat Clearance w eGFR POC Glucometer 104 85 Random Glucose Calcium Phosphorus Magnesium Iron TIBC Iron Saturation Total Bilirubin AST ALT Alkaline Phosphatase Total Protein Albumin Xctiu-2-Wwvcuvqzq (%) Twohb-1-Rfcmehpzl (%) Beta Globulins (%) Gamma Globulins (%) M-[place] % Vitamin B12 Serum Folate HIV 1&2 Antibody Screen HIV P24 Antigen Ref Test Comments Blood Type Antibody Screen Crossmatch 10/01/18 10/01/18 10/01/18 05:30 05:30 05:30 WBC RBC Hgb Hct MCV MCH MCHC RDW Plt Count MPV Absolute Neuts (auto) Neutrophils % Neutrophils % (Manual) Band Neutrophils % Lymphocytes % Lymphocytes % (Manual) Monocytes % Monocytes % (Manual) Eosinophils % Eosinophils % (Manual) Basophils % Basophils % (Manual) Myelocytes % (Man) Promyelocytes % (Man) Blast Cells % (Manual) Nucleated RBC % Metamyelocytes Hypochromia Platelet Estimate Polychromasia Poikilocytosis Anisocytosis Microcytosis Macrocytosis Tear Drop Cells [place] Cells PT with INR 17.80 H INR 1.50 H PTT (Actin FS) 32.6 Sodium 141 Potassium 3.8 Chloride 111 H Carbon Dioxide 20 L Anion Gap 10 BUN 39 H Creatinine 3.2 H Creat Clearance w eGFR 20.34 POC Glucometer Random Glucose 79 Calcium 8.1 L Phosphorus 3.2 Magnesium 1.7 L Iron TIBC Iron Saturation Total Bilirubin 1.4 H AST 26 ALT 44 Alkaline Phosphatase 102 Total Protein 5.8 L Albumin 2.7 L Takgr-5-Vkdjnynvb (%) Nfghr-7-Lxlgzthmg (%) Beta Globulins (%) Gamma Globulins (%) M-[place] % Vitamin B12 984 Serum Folate 5 HIV 1&2 Antibody Screen HIV P24 Antigen Ref Test Comments Blood Type Antibody Screen Crossmatch Active Medications Generic Name Dose Route Start Last Admin Trade Name Freq PRN Reason Stop Dose Admin Acetaminophen 1,000 mg 09/30/18 03:24 09/30/18 20:19 Tylenol - PO 1,000 mg Q6H PRN Administration PAIN LEVEL 1-5 Amiodarone HCl 200 mg 09/30/18 10:00 10/01/18 11:18 Cordarone - PO 200 mg DAILY [facility] Administration Carvedilol 25 mg 10/01/18 11:45 10/01/18 13:41 Coreg - PO 25 mg BID [facility] Administration Chlorhexidine Gluconate 1 applic 09/30/18 22:00 09/30/18 21:54 Hibiclens For Decolonization - TP 1 applic HS [facility] Administration Guaifenesin 5 ml 09/30/18 17:34 Diabetic Tussin Dm - PO Q6H PRN COUGH Sodium Chloride 1,000 mls @ 75 mls/hr 09/30/18 03:15 10/01/18 02:56 Normal Saline - IV 75 mls/hr ASDIR [facility] Administration Piperacillin Sod/Tazobactam 50 mls @ 100 mls/hr 09/30/18 11:00 10/01/18 11:00 Sod 2.25 gm/ Dextrose IVPB 100 mls/hr Q8H-IV [facility] Administration Protocol Doxycycline Hyclate 100 mg/ 100 mls @ 50 mls/hr 09/30/18 11:15 10/01/18 11:21 Dextrose IVPB 50 mls/hr BID [facility] Administration Morphine Sulfate 2 mg 09/30/18 03:10 Morphine Sulfate IVPUSH Q6H PRN PAIN LEVEL 6-10 Mupirocin 1 applic 09/30/18 10:00 10/01/18 11:59 Bactroban Ointment (For Decolonization) - NS 10/05/18 09:59 Not Given BID [facility] Oseltamivir Phosphate 30 mg 09/30/18 11:15 10/01/18 10:00 Tamiflu - PO 10/05/18 11:14 30 mg BID [facility] Administration Rivaroxaban 15 mg 09/30/18 18:00 09/30/18 18:55 Xarelto PO 15 mg 1800 [facility] Administration ASSESSMENT/PLAN: This is a 53 year old male with a past medical history of congestive heart failure s/p ICD, CAD, DM, CKD, paroxysmal atrial fibrillation on xarelto, presented with a productive cough with brown sputum and flu like symptoms found to be severely pancytopenic. Pancytopenia sepsis secondary to pneumonia iron def anemia lung nodules with mediastinal lymph nodes acute on chronic CKD hx systolic CHF atrial fibrillation -pancytopenia improved; s/p epogen and 1UPRBC -iron studies sig for iron deficiency; will need venofer to replace iron stores and can give a procrit; due to CKD -MDS work up including SPEP, UPEP, immunofixation, immunoglobulin levels; pending -cont IV antibiotics ; tamiflu Visit type - Emergency Visit Emergency Visit: Yes ED Registration Date: 09/30/18 Care time: The patient presented to the Emergency Department on the above date and was hospitalized for further evaluation of their emergent condition. - New Patient This patient is new to me today: No - Critical Care Critical Care patient: Yes Total Critical Care Time (in minutes): 45 Critical Care Statement: The care of this patient involved high complexity decision making to prevent further life threatening deterioration of the patient 's condition and/or to evaluate & treat vital organ system(s) failure or risk of failure.
[2018-10-01] MEDS ORDERED: IRON SUCROSE INJECTION 200 MG in SODIUM CHLORIDE 90 ML IVPB ONE (14:56)
[2018-10-01] MEDS ORDERED: EPOETIN ALFA 40,000 UNIT/1 ML VIAL SQ ONE (14:59)
--- NOTE | 2018-10-01 16:51 | PN ---
Progress Note, Physician History of Present Illness: Dyspnea improving, off pressors. - Current Medication List Current Medications: Active Medications Acetaminophen (Tylenol -) 1,000 mg PO Q6H PRN PRN Reason: PAIN LEVEL 1-5 Last Admin: 09/30/18 20:19 Dose: 1,000 mg Amiodarone HCl (Cordarone -) 200 mg PO DAILY [facility] Last Admin: 10/01/18 11:18 Dose: 200 mg Carvedilol (Coreg -) 25 mg PO BID [facility] Last Admin: 10/01/18 13:41 Dose: 25 mg Chlorhexidine Gluconate (Hibiclens For Decolonization -) 1 applic TP HS [facility] Last Admin: 09/30/18 21:54 Dose: 1 applic Guaifenesin (Diabetic Tussin Dm -) 5 ml PO Q6H PRN PRN Reason: COUGH Sodium Chloride (Normal Saline -) 1,000 mls @ 75 mls/hr IV ASDIR [facility] Last Admin: 10/01/18 02:56 Dose: 75 mls/hr Piperacillin Sod/Tazobactam (Sod 2.25 gm/ Dextrose) 50 mls @ 100 mls/hr IVPB Q8H-IV [facility]; Protocol Last Admin: 10/01/18 11:00 Dose: 100 mls/hr Doxycycline Hyclate 100 mg/ (Dextrose) 100 mls @ 50 mls/hr IVPB BID [facility] Last Admin: 10/01/18 11:21 Dose: 50 mls/hr Morphine Sulfate (Morphine Sulfate) 2 mg IVPUSH Q6H PRN PRN Reason: PAIN LEVEL 6-10 Mupirocin (Bactroban Ointment (For Decolonization) -) 1 applic NS BID [facility] Stop: 10/05/18 09:59 Last Admin: 10/01/18 11:59 Dose: Not Given Oseltamivir Phosphate (Tamiflu -) 30 mg PO BID [facility] Stop: 10/05/18 11:14 Last Admin: 10/01/18 10:00 Dose: 30 mg - Objective Vital Signs: Vital Signs Temperature 98.9 F 10/01/18 00:00 Pulse Rate 101 H 10/01/18 08:00 Respiratory Rate 18 10/01/18 08:00 Blood Pressure 108/90 10/01/18 08:00 O2 Sat by Pulse Oximetry (%) 98 10/01/18 09:00 Constitutional: Yes: No Distress, Calm Neck: Yes: Supple Cardiovascular: Yes: Regular Rate and Rhythm Respiratory: Yes: Regular, Diminished Gastrointestinal: Yes: Normal Bowel Sounds, Soft, Abdomen, Obese Edema: No Labs: CBC, BMP 10/01/18 05:30 10/01/18 05:30 INR, PTT INR 1.50 (0.83-1.09) H 10/01/18 05:30 Problem List - Problems (1) ICD (implantable cardioverter-defibrillator) in place Code(s): Z95.810 - PRESENCE OF AUTOMATIC (IMPLANTABLE) CARDIAC DEFIBRILLATOR (2) Acute kidney injury superimposed on chronic kidney disease Code(s): N17.9 - ACUTE KIDNEY FAILURE, UNSPECIFIED; N18.9 - CHRONIC KIDNEY DISEASE, UNSPECIFIED (3) CAD (coronary artery disease) Code(s): I25.10 - ATHSCL HEART DISEASE OF [place] CORONARY ARTERY W/O ANG PCTRS Qualifiers: Coronary Disease-Associated Artery/Lesion type: [place] artery [place] vs. transplanted heart: [place] heart Associated angina: without angina Qualified Code(s): I25.10 - Atherosclerotic heart disease of [place] coronary artery without angina pectoris (4) HLD (hyperlipidemia) Code(s): E78.5 - HYPERLIPIDEMIA, UNSPECIFIED (5) IDDM (insulin dependent diabetes mellitus) Code(s): E11.9 - TYPE 2 DIABETES MELLITUS WITHOUT COMPLICATIONS; Z79.4 - [employer] (CURRENT) USE OF INSULIN (6) Paroxysmal A-fib Code(s): I48.0 - PAROXYSMAL ATRIAL FIBRILLATION (7) Severe sepsis Code(s): A41.9 - SEPSIS, UNSPECIFIED ORGANISM; R65.20 - SEVERE SEPSIS WITHOUT SEPTIC SHOCK (8) Thrombocytopenia Code(s): D69.6 - THROMBOCYTOPENIA, UNSPECIFIED Assessment/Plan 1. Community acquired pneumonia with sepsis syndrome, ? flu 2. Pancytopenia due to marrow suppression from above 3. LV systolic dysfunction with severely reduced LVEF 4. Acute on chronic class 2-3 NYHA classsification systolic LV failure 5. s/p ICD 6. PAF off DOAC (Xarelto), [id number] score of 4 7. DM 8. HTN 9. Hypercholesterolemia 10. CKD 11. Severe OSAS PLAN: 1. Antibiotic coverage, steroids and nebulizer, Tamiflu, O2 as needed 2. Continue Amiodarone 200 mg QD, Carvedilol 25 bid, resume Crestor 0 qhs 3. Entresto and Spironolactone have been held pending renal fxn stabilization 4. Xarelto held pending plt recovery 5. Obtain medical record from Dr. Prabhakar Cano including device info
--- NOTE | 2018-10-01 17:30 | PN ---
Teaching Attending Note Name of Resident: Tiara Gatica ATTENDING PHYSICIAN STATEMENT I saw and evaluated the patient. I reviewed the resident's note and discussed the case with the resident. I agree with the resident's findings and plan as documented. SUBJECTIVE: Patient seen and examined Clinically improved Less SOB, less dyspnea, No chest pain , less abdominal pains Last Vital Signs Temp Pulse Resp BP Pulse Ox 98.9 F 101 H 18 108/90 98 10/01/18 00:00 10/01/18 08:00 10/01/18 08:00 10/01/18 08:00 10/01/18 09:00 HEENT: LUCINA, EOM Intact Oropharynx: No thrush, No mucositis Cor: RSR,systolic murmur Lungs: bronchial breath sounds , scattered rhonchi Abd: Soft, Normal bowel sounds, No organomegaly, distended Ext:No significant edema Skin: No rashes, Integument intact CBC, BMP 10/01/18 05:30 10/01/18 05:30 Current Medications Generic Name Dose Route Start Last Admin Trade Name Freq PRN Reason Stop Dose Admin Acetaminophen 1,000 mg 09/30/18 03:24 09/30/18 20:19 Tylenol - PO 1,000 mg Q6H PRN Administration PAIN LEVEL 1-5 Amiodarone HCl 200 mg 09/30/18 10:00 10/01/18 11:18 Cordarone - PO 200 mg DAILY [facility] Administration Carvedilol 25 mg 10/01/18 11:45 10/01/18 13:41 Coreg - PO 25 mg BID [facility] Administration Chlorhexidine Gluconate 1 applic 09/30/18 22:00 09/30/18 21:54 Hibiclens For Decolonization - TP 1 applic HS [facility] Administration Guaifenesin 5 ml 09/30/18 17:34 Diabetic Tussin Dm - PO Q6H PRN COUGH Sodium Chloride 1,000 mls @ 75 mls/hr 09/30/18 03:15 10/01/18 02:56 Normal Saline - IV 75 mls/hr [facility] Administration Piperacillin Sod/Tazobactam 50 mls @ 100 mls/hr 09/30/18 11:00 10/01/18 17:14 Sod 2.25 gm/ Dextrose IVPB 100 mls/hr Q8H-IV [facility] Administration Protocol Doxycycline Hyclate 100 mg/ 100 mls @ 50 mls/hr 09/30/18 11:15 10/01/18 11:21 Dextrose IVPB 50 mls/hr BID [facility] Administration Morphine Sulfate 2 mg 09/30/18 03:10 Morphine Sulfate IVPUSH Q6H PRN PAIN LEVEL 6-10 Mupirocin 1 applic 09/30/18 10:00 10/01/18 11:59 Bactroban Ointment (For Decolonization) - NS 10/05/18 09:59 Not Given BID [facility] Oseltamivir Phosphate 30 mg 09/30/18 11:15 10/01/18 10:00 Tamiflu - PO 10/05/18 11:14 30 mg BID [facility] Administration Rosuvastatin Calcium 10 mg 10/01/18 22:00 Crestor - PO HS [facility] OBJECTIVE:Impression: Pancytopenia - improved with transfusion, neupogen Fe++ deficient- s/p venofer and for procrit sepsis- on antibiotics CAP- antibiotics per ID Thrombocytopenia - for transfusion of platelets a/c to hold until platelets > 50 K Monitor cbc antibiotics per ID transfusion of platelets - one hour post transfusion platelet count ASSESSMENT AND PLAN:
[2018-10-01 17:55] LABS: HEMATOCRIT 27.1 % (35.4-49); HEMOGLOBIN 9.4 GM/dL (11.7-16.9); MCH 33.4 pg (25.7-33.7); MCHC 34.6 g/dl (32.0-35.9); MEAN CELL VOLUME 96.6 fl (80-96); MEAN PLT VOLUME 7.9 fl (7.5-11.1); PLATELET COUNT 45 K/MM3 (134-434); RBC 2.81 M/mm3 (4.00-5.60); RDW 16.6 % (11.9-15.9); WHITE BLOOD COUNT 10.8 K/mm3 (4.0-10.0)
[2018-10-01] MEDS ORDERED: VANCOMYCIN 1,250 MG in DEXTROSE 5%-WATER - 250 ML IVPB SCH (22:00)
[2018-10-01] MEDS: CHLORHEXIDINE GLUCONATE 4% CLEANSER FOR DECOLONIZATION TP SCH (22:10)
[2018-10-01] MEDS: ROSUVASTATIN CA 10 MG TABLET (FP) PO SCH (22:36)
--- NOTE | 2018-10-02 00:02 | ECHO ---
Version: 1 Name: MANSOOR VANN Exam: Adult Echocardiogram Study Date: 10/01/2018, 8:40 AM Age: 53 Years MMode/2D Measurements & Calculations IVSd: 1.06 cm LVIDs: 6.6 cm LVIDd: 7.3 cm LVPWd: 1.04 cm LAV (MOD-bp): 159.0 ml LVOT diam: 2.00 cm Ao root diam: 2.9 cm LA dimension: 5.1 cm Doppler Measurements & Calculations MV E max arnulfo: 124.0 cm/sec Med E/e': 13.9 MV A max arnulfo: 175.6 cm/sec Med Peak E' Arnulfo: 8.9 cm/sec MV E/A: 0.71 Lat E/e': 13.6 Lat Peak E' Arnulfo: 9.1 cm/sec MR max P.8 mmHg AI P1/2t: 1027 msec TR max arnulfo: 345.6 cm/sec TR max P.8 mmHg Left Ventricle The left ventricle is severely dilated. The echo findings are consistent with dilated/congestive cardiomyopathy. There is global thinning of the left ventricular dean. Ejection Fraction = 15-20%. Left ventricular systolic function is severely reduced. E/A reversal consistent with but not diagnostic o f poor LV compliance. Right Ventricle There is a pacemaker lead in the right ventricle. The right ventricular systolic function is grossly normal. Atria The left atrium is severely dilated. The right atrium is moderate to severely dilated. Mitral Valve There is moderate mitral valve thickening. There is severe mitral regurgitation. Tricuspid Valve There is severe tricuspid regurgitation. Right ventricular systolic pressure is elevated at 50-60mmH g. There is severe pulmonary hypertension. Aortic Valve There is mild to moderate aortic valve thickening. Moderate aortic regurgitation. Pulmonic Valve Moderate pulmonic valvular regurgitation. Great Vessels The aortic root is normal size. Pericardium/Pleura Trivial pericardial effusion not hemodynamically significant. Summary Statements The left ventricle is severely dilated. The echo findings are consistent with dilated/congestive cardiomyopathy. There is global thinning of the left ventricular dean. E/A reversal consistent with but not diagnostic of poor LV compliance Ejection Fraction = 15-20%. Left ventricular systolic function is severely reduced. The right ventricular systolic function is grossly normal. There is a pacemaker lead in the right ventricle. The left atrium is severely dilated. The right atrium is moderate to severely dilated. There is moderate mitral valve thickening. There is severe mitral regurgitation. There is severe tricuspid regurgitation. Right ventricular systolic pressure is elevated at 50-60mmHg. There is severe pulmonary hypertension. Moderate pulmonic valvular regurgitation. There is mild to moderate aortic valve thickening. Moderate aortic regurgitation. The aortic root is normal size. Trivial pericardial effusion not hemodynamically significant Marvel Hutton MD 10/02/2018, 12:01 AM Ordering Physician: Nato Britt Performed By: Fabiana Eli
[2018-10-02] MEDS ORDERED: DEXTROSE 5%-WATER - 50 ML IVPB ONE ×2 (02:01→09:17)
[2018-10-02] MEDS ORDERED: PIPERACILLIN/TAZOBACTAM 2.25 GM VIAL IVPB ONE ×2 (02:01→09:16)
[2018-10-02] MEDS: PIPERACILLIN/TAZOB 2.25 GM 2.25 GM in DEXTROSE 5%-WATER - 50 ML IVPB SCH ×3 (02:26→17:40)
[2018-10-02] MEDS: SODIUM CHLORIDE 1,000 ML IV SCH (06:17)
--- NOTE | 2018-10-02 09:47 | PN ---
Progress Note, Physician History of Present Illness: Dyspnea improving, non-productive cough, remains off pressors. - Current Medication List Current Medications: Active Medications Acetaminophen (Tylenol -) 1,000 mg PO Q6H PRN PRN Reason: PAIN LEVEL 1-5 Last Admin: 09/30/18 20:19 Dose: 1,000 mg Amiodarone HCl (Cordarone -) 200 mg PO DAILY [facility] Last Admin: 10/01/18 11:18 Dose: 200 mg Carvedilol (Coreg -) 25 mg PO BID [facility] Last Admin: 10/01/18 22:36 Dose: 25 mg Chlorhexidine Gluconate (Hibiclens For Decolonization -) 1 applic TP HS [facility] Last Admin: 10/01/18 22:10 Dose: Not Given Guaifenesin (Diabetic Tussin Dm -) 5 ml PO Q6H PRN PRN Reason: COUGH Last Admin: 10/01/18 23:15 Dose: 5 ml Sodium Chloride (Normal Saline -) 1,000 mls @ 75 mls/hr IV ASDIR [facility] Last Admin: 10/02/18 06:17 Dose: 75 mls/hr Piperacillin Sod/Tazobactam (Sod 2.25 gm/ Dextrose) 50 mls @ 100 mls/hr IVPB Q8H-IV [facility]; Protocol Last Admin: 10/02/18 02:26 Dose: 100 mls/hr Doxycycline Hyclate 100 mg/ (Dextrose) 100 mls @ 50 mls/hr IVPB BID [facility] Last Admin: 10/01/18 22:38 Dose: 50 mls/hr Morphine Sulfate (Morphine Sulfate) 2 mg IVPUSH Q6H PRN PRN Reason: PAIN LEVEL 6-10 Mupirocin (Bactroban Ointment (For Decolonization) -) 1 applic NS BID [facility] Stop: 10/05/18 09:59 Last Admin: 10/01/18 22:10 Dose: Not Given Oseltamivir Phosphate (Tamiflu -) 30 mg PO BID [facility] Stop: 10/05/18 11:14 Last Admin: 10/01/18 22:38 Dose: 30 mg Rosuvastatin Calcium (Crestor -) 10 mg PO HS [facility] Last Admin: 10/01/18 22:36 Dose: 10 mg - Objective Vital Signs: Vital Signs Temperature 98.5 F 10/02/18 06:00 Pulse Rate 84 10/02/18 06:00 Respiratory Rate 20 10/02/18 06:00 Blood Pressure 116/75 10/02/18 06:00 O2 Sat by Pulse Oximetry (%) 97 10/01/18 21:00 Constitutional: Yes: No Distress, Calm Neck: Yes: Supple Cardiovascular: Yes: Regular Rate and Rhythm Respiratory: Yes: Regular, Diminished, On Nasal O2 Gastrointestinal: Yes: Normal Bowel Sounds, Soft Edema: No Labs: CBC, BMP 10/01/18 17:30 10/01/18 05:30 INR, PTT INR 1.50 (0.83-1.09) H 10/01/18 05:30 - ....Imaging EKG: Report Reviewed (Tele: NSR) Problem List - Problems (1) ICD (implantable cardioverter-defibrillator) in place Code(s): Z95.810 - PRESENCE OF AUTOMATIC (IMPLANTABLE) CARDIAC DEFIBRILLATOR (2) Acute kidney injury superimposed on chronic kidney disease Code(s): N17.9 - ACUTE KIDNEY FAILURE, UNSPECIFIED; N18.9 - CHRONIC KIDNEY DISEASE, UNSPECIFIED (3) CAD (coronary artery disease) Code(s): I25.10 - ATHSCL HEART DISEASE OF [place] CORONARY ARTERY W/O ANG PCTRS Qualifiers: Coronary Disease-Associated Artery/Lesion type: [place] artery [place] vs. transplanted heart: [place] heart Associated angina: without angina Qualified Code(s): I25.10 - Atherosclerotic heart disease of [place] coronary artery without angina pectoris (4) HLD (hyperlipidemia) Code(s): E78.5 - HYPERLIPIDEMIA, UNSPECIFIED (5) IDDM (insulin dependent diabetes mellitus) Code(s): E11.9 - TYPE 2 DIABETES MELLITUS WITHOUT COMPLICATIONS; Z79.4 - GROUP HOME (CURRENT) USE OF INSULIN (6) Paroxysmal A-fib Code(s): I48.0 - PAROXYSMAL ATRIAL FIBRILLATION (7) Severe sepsis Code(s): A41.9 - SEPSIS, UNSPECIFIED ORGANISM; R65.20 - SEVERE SEPSIS WITHOUT SEPTIC SHOCK (8) Thrombocytopenia Code(s): D69.6 - THROMBOCYTOPENIA, UNSPECIFIED Assessment/Plan 1. Community acquired pneumonia with sepsis syndrome, ? flu 2. Resolving pancytopenia due to marrow suppression from above (Fe++ deficient- s/p venofer and procrit, thrombocytopenia - post transfusion of platelets) 3. LV systolic dysfunction with severely reduced LVEF 4. Acute on chronic class 2-3 NYHA classsification systolic LV failure 5. s/p ICD 6. PAF off DOAC (Xarelto), [id number] score of 4 7. DM 8. HTN 9. Hypercholesterolemia 10. CKD 11. Severe OSAS PLAN: 1. Antibiotic coverage, steroids and nebulizer, Tamiflu, O2 as needed 2. Continue Amiodarone 200 mg QD, Carvedilol 25 bid, and Crestor 10 qhs 3. Entresto and Spironolactone have been held pending renal fxn stabilization 4. Xarelto held pending plt recovery > 50 K 5. Obtain medical record from Dr. Prabhakar Cano including device info
[2018-10-02] MEDS: MUPIROCIN 2% TOPICAL OINTMENT FOR DECOLONIZATION NS SCH ×2 (09:58→21:52)
[2018-10-02] MEDS: CARVEDILOL 25 MG TABLET (FP) PO SCH ×2 (10:01→21:55)
[2018-10-02] MEDS: AMIODARONE HCL 200 MG TABLET (FP) PO SCH (10:01)
[2018-10-02] MEDS: OSELTAMIVIR PHOSPHATE 30 MG CAPSULE PO SCH ×2 (10:01→21:55)
[2018-10-02] MEDS: DOXYCYCLINE INJECTION 100 MG in DEXTROSE 5%-WATER - 100 ML IVPB SCH ×2 (10:02→21:55)
--- NOTE | 2018-10-02 10:13 | PN ---
Progress Note, Physician History of Present Illness: PULMONARY ALERT,FEELING BETTER,LESS DYSPNEIC,LESS COUGH - Current Medication List Current Medications: Active Medications Acetaminophen (Tylenol -) 1,000 mg PO Q6H PRN PRN Reason: PAIN LEVEL 1-5 Last Admin: 09/30/18 20:19 Dose: 1,000 mg Amiodarone HCl (Cordarone -) 200 mg PO DAILY [facility] Last Admin: 10/01/18 11:18 Dose: 200 mg Carvedilol (Coreg -) 25 mg PO BID [facility] Last Admin: 10/01/18 22:36 Dose: 25 mg Chlorhexidine Gluconate (Hibiclens For Decolonization -) 1 applic TP HS [facility] Last Admin: 10/01/18 22:10 Dose: Not Given Guaifenesin (Diabetic Tussin Dm -) 5 ml PO Q6H PRN PRN Reason: COUGH Last Admin: 10/01/18 23:15 Dose: 5 ml Sodium Chloride (Normal Saline -) 1,000 mls @ 75 mls/hr IV ASDIR [facility] Last Admin: 10/02/18 06:17 Dose: 75 mls/hr Piperacillin Sod/Tazobactam (Sod 2.25 gm/ Dextrose) 50 mls @ 100 mls/hr IVPB Q8H-IV [facility]; Protocol Last Admin: 10/02/18 02:26 Dose: 100 mls/hr Doxycycline Hyclate 100 mg/ (Dextrose) 100 mls @ 50 mls/hr IVPB BID [facility] Last Admin: 10/01/18 22:38 Dose: 50 mls/hr Morphine Sulfate (Morphine Sulfate) 2 mg IVPUSH Q6H PRN PRN Reason: PAIN LEVEL 6-10 Mupirocin (Bactroban Ointment (For Decolonization) -) 1 applic NS BID [facility] Stop: 10/05/18 09:59 Last Admin: 10/01/18 22:10 Dose: Not Given Oseltamivir Phosphate (Tamiflu -) 30 mg PO BID [facility] Stop: 10/05/18 11:14 Last Admin: 10/01/18 22:38 Dose: 30 mg Rosuvastatin Calcium (Crestor -) 10 mg PO [facility] Last Admin: 10/01/18 22:36 Dose: 10 mg - Objective Vital Signs: Vital Signs Temperature 98.5 F 10/02/18 06:00 Pulse Rate 84 10/02/18 06:00 Respiratory Rate 20 10/02/18 06:00 Blood Pressure 116/75 10/02/18 06:00 O2 Sat by Pulse Oximetry (%) 97 10/01/18 21:00 Constitutional: Yes: Well Nourished, Calm Eyes: Yes: WNL HENT: Yes: WNL Neck: Yes: WNL Cardiovascular: Yes: Regular Rate and Rhythm, S1, S2 Respiratory: Yes: Rhonchi (SCATTERED DEACON RHONCHI) Gastrointestinal: Yes: Normal Bowel Sounds, Soft Extremities: Yes: WNL Edema: No Labs: CBC, BMP 10/01/18 17:30 10/01/18 05:30 INR, PTT INR 1.50 (0.83-1.09) H 10/01/18 05:30 Problem List - Problems (1) Cardiomyopathy Code(s): I42.9 - CARDIOMYOPATHY, UNSPECIFIED (2) Acute kidney injury superimposed on chronic kidney disease Code(s): N17.9 - ACUTE KIDNEY FAILURE, UNSPECIFIED; N18.9 - CHRONIC KIDNEY DISEASE, UNSPECIFIED (3) Anemia Code(s): D64.9 - ANEMIA, UNSPECIFIED Qualifiers: Anemia type: due to chronic kidney disease Chronic kidney disease stage: unspecified stage Qualified Code(s): N18.9 - Chronic kidney disease, unspecified; D63.1 - Anemia in chronic kidney disease (4) CAD (coronary artery disease) Code(s): I25.10 - ATHSCL HEART DISEASE OF [place] CORONARY ARTERY W/O ANG PCTRS Qualifiers: Coronary Disease-Associated Artery/Lesion type: [place] artery [place] vs. transplanted heart: [place] heart Associated angina: without angina Qualified Code(s): I25.10 - Atherosclerotic heart disease of [place] coronary artery without angina pectoris (5) Chronic kidney disease Code(s): N18.9 - CHRONIC KIDNEY DISEASE, UNSPECIFIED Qualifiers: Chronic kidney disease stage: unspecified stage Qualified Code(s): N18.9 - Chronic kidney disease, unspecified (6) Diabetes Code(s): E11.9 - TYPE 2 DIABETES MELLITUS WITHOUT COMPLICATIONS Qualifiers: Diabetes mellitus type: type 1 Diabetes mellitus complication status: with kidney complications Diabetes mellitus complication detail: with chronic kidney disease Chronic kidney disease stage: unspecified stage Qualified Code(s): E10.22 - Type 1 diabetes mellitus with diabetic chronic kidney disease (7) HLD (hyperlipidemia) Code(s): E78.5 - HYPERLIPIDEMIA, UNSPECIFIED (8) ICD (implantable cardioverter-defibrillator) in place Code(s): Z95.810 - PRESENCE OF AUTOMATIC (IMPLANTABLE) CARDIAC DEFIBRILLATOR (9) IDDM (insulin dependent diabetes mellitus) Code(s): E11.9 - TYPE 2 DIABETES MELLITUS WITHOUT COMPLICATIONS; Z79.4 - LONG-TERM (CURRENT) USE OF INSULIN (10) Pancytopenia Code(s): D61.818 - OTHER PANCYTOPENIA (11) Paroxysmal A-fib Code(s): I48.0 - PAROXYSMAL ATRIAL FIBRILLATION (12) Thrombocytopenia Code(s): D69.6 - THROMBOCYTOPENIA, UNSPECIFIED (13) Pulmonary HTN Code(s): I27.20 - PULMONARY HYPERTENSION, UNSPECIFIED (14) Pneumonia Code(s): J18.9 - PNEUMONIA, UNSPECIFIED ORGANISM Assessment/Plan Assessment/Plan Sepsis due to CAP improved Bilateral CAP clinically improving History of severely reduced LV Function / global hypokinesis CHF S/P ICD AFIB CAD IDDM CKD Gout Pulmonary Htn Pancytopenia possibly due to sepsis Severe OSAS ABX per ID Tamiflu O2 as needed Rate control Follow final cultures Strict I & O Pain control monitor lytes,rewnal function monitor plt ct Will need formal CPAP re-titration after discharge DR COLLADO
--- NOTE | 2018-10-02 10:44 | PN ---
Progress Note (short form) - Note Progress Note: pt feeling better diarrhea- less coughing less no SOB, chest pain Vital Signs - 24 hr 10/01/18 10/01/18 10/01/18 12:00 14:00 17:34 Temperature 98.4 F 98.6 F Pulse Rate 92 H 92 H 92 H Respiratory 18 19 19 Rate Blood Pressure 118/98 110/78 101/77 O2 Sat by Pulse Oximetry (%) 10/01/18 10/01/18 10/01/18 20:00 21:00 22:00 Temperature 98 F 98.4 F Pulse Rate 78 89 Respiratory 20 22 H Rate Blood Pressure 105/74 114/76 O2 Sat by Pulse 97 Oximetry (%) 10/02/18 10/02/18 01:53 06:00 Temperature 97.7 F 98.5 F Pulse Rate 100 H 84 Respiratory 20 20 Rate Blood Pressure 101/67 116/75 O2 Sat by Pulse Oximetry (%) Current Medications Generic Name Dose Route Start Last Admin Trade Name Freq PRN Reason Stop Dose Admin Acetaminophen 1,000 mg 09/30/18 03:24 09/30/18 20:19 Tylenol - PO 1,000 mg Q6H PRN Administration PAIN LEVEL 1-5 Amiodarone HCl 200 mg 09/30/18 10:00 10/02/18 10:01 Cordarone - PO 200 mg DAILY [facility]AR Administration Carvedilol 25 mg 10/01/18 11:45 10/02/18 10:01 Coreg - PO 25 mg BID [facility] Administration Chlorhexidine Gluconate 1 applic 09/30/18 22:00 10/01/18 22:10 Hibiclens For Decolonization - TP Not Given HS [facility] Guaifenesin 5 ml 09/30/18 17:34 10/01/18 23:15 Diabetic Tussin Dm - PO 5 ml Q6H PRN Administration COUGH Sodium Chloride 1,000 mls @ 75 mls/hr 09/30/18 03:15 10/02/18 06:17 Normal Saline - IV 75 mls/hr ASDIR [facility]AR Administration Piperacillin Sod/Tazobactam 50 mls @ 100 mls/hr 09/30/18 11:00 10/02/18 10:00 Sod 2.25 gm/ Dextrose IVPB 100 mls/hr Q8H-IV [facility] Administration Protocol Doxycycline Hyclate 100 mg/ 100 mls @ 50 mls/hr 09/30/18 11:15 10/02/18 10:02 Dextrose IVPB 50 mls/hr BID [facility] Administration Morphine Sulfate 2 mg 09/30/18 03:10 Morphine Sulfate IVPUSH Q6H PRN PAIN LEVEL 6-10 Mupirocin 1 applic 09/30/18 10:00 10/02/18 09:58 Bactroban Ointment (For Decolonization) - NS 10/05/18 09:59 Not Given BID [facility] Oseltamivir Phosphate 30 mg 09/30/18 11:15 10/02/18 10:01 Tamiflu - PO 10/05/18 11:14 30 mg BID [facility] Administration Rosuvastatin Calcium 10 mg 10/01/18 22:00 10/01/18 22:36 Crestor - PO 10 mg HS [facility] Administration Laboratory Results - last 24 hr 09/30/18 09/30/18 10/01/18 13:33 17:30 05:30 WBC RBC Hgb Hct MCV MCH MCHC RDW Plt Count MPV Neutrophils % (Manual) 76.0 Band Neutrophils % 3.0 Lymphocytes % (Manual) 17.0 D Monocytes % (Manual) 1 L Eosinophils % (Manual) 2.0 D Basophils % (Manual) 0.0 Myelocytes % (Man) 1 Promyelocytes % (Man) 0 Blast Cells % (Manual) 0 Metamyelocytes 0 Hypochromia 1+ Platelet Estimate Decreased Polychromasia 1+ Poikilocytosis 1+ Anisocytosis 1+ Microcytosis 1+ Macrocytosis 0 Tear Drop Cells 1+ [place] Cells 1+ POC Glucometer Total Protein (PEP) 5.1 L Albumin (PEP) 2.9 Globulin 2.2 Albumin/Globulin Ratio 1.3 Vguvq-0-Cvcpcqzwe (%) Cancelled Ntqjt-1-Cdchaftho (%) Cancelled Beta Globulins 0.7 Beta Globulins (%) Cancelled Gamma Globulins (%) Cancelled M-[place] % Cancelled BROOKS M-[place] Not observed Serum BROOKS Interpret IEP IgG 860 IEP IgA 166 IEP IgM 50 Ref Test Comments Cancelled Blood Type O POSITIVE Antibody Screen Negative Crossmatch See Detail 10/01/18 10/01/18 17:30 17:39 WBC 10.8 H RBC 2.81 L Hgb 9.4 L Hct 27.1 L MCV 96.6 H MCH 33.4 MCHC 34.6 RDW 16.6 H Plt Count 45 L D MPV 7.9 D Neutrophils % (Manual) Band Neutrophils % Lymphocytes % (Manual) Monocytes % (Manual) Eosinophils % (Manual) Basophils % (Manual) Myelocytes % (Man) Promyelocytes % (Man) Blast Cells % (Manual) Metamyelocytes Hypochromia Platelet Estimate Polychromasia Poikilocytosis Anisocytosis Microcytosis Macrocytosis Tear Drop Cells [place] Cells POC Glucometer 110 Total Protein (PEP) Albumin (PEP) Globulin Albumin/Globulin Ratio Ljivm-2-Cbjkwkjhk (%) Qnbej-4-Dhdygcvos (%) Beta Globulins Beta Globulins (%) Gamma Globulins (%) M-[place] % BROOKS M-[place] Serum BROOKS Interpret IEP IgG IEP IgA IEP IgM Ref Test Comments Blood Type Antibody Screen Crossmatch S1 S2 RRR Lungs decreased Abd- soft, generalised tenderness, BS+ No edema PLAN sepsis improving Hematology eval appreciated-- s/p PRBC and Granix Cell count improved On iv antibiotics and empiric Tamiflu respiratory virus culture Pending and urine antigens negative Physical therapy evaluation Problem List - Problems (1) Pancytopenia Code(s): D61.818 - OTHER PANCYTOPENIA (2) Acute kidney injury superimposed on chronic kidney disease Code(s): N17.9 - ACUTE KIDNEY FAILURE, UNSPECIFIED; N18.9 - CHRONIC KIDNEY DISEASE, UNSPECIFIED (3) Anemia Code(s): D64.9 - ANEMIA, UNSPECIFIED Qualifiers: Anemia type: due to chronic kidney disease Chronic kidney disease stage: unspecified stage Qualified Code(s): N18.9 - Chronic kidney disease, unspecified; D63.1 - Anemia in chronic kidney disease (4) CAD (coronary artery disease) Code(s): I25.10 - ATHSCL HEART DISEASE OF [place] CORONARY ARTERY W/O ANG PCTRS Qualifiers: Coronary Disease-Associated Artery/Lesion type: [place] artery [place] vs. transplanted heart: [place] heart Associated angina: without angina Qualified Code(s): I25.10 - Atherosclerotic heart disease of [place] coronary artery without angina pectoris (5) Severe sepsis Code(s): A41.9 - SEPSIS, UNSPECIFIED ORGANISM; R65.20 - SEVERE SEPSIS WITHOUT SEPTIC SHOCK
[2018-10-02 12:40] LABS: INR 1.09 (0.83-1.09); PROTHROMBIN TIME (PATIENT) 12.9 SEC (9.7-13.0)
[2018-10-02 12:43] LABS: ACTIVATED PTT 32.3 SECONDS (25.2-36.5)
--- NOTE | 2018-10-02 14:09 | PN ---
Physical Exam: SUBJECTIVE: Patient seen and examined; no more bleeding thru nose today; OBJECTIVE: Vital Signs Period Temp Pulse Resp BP Sys/[place] Pulse Ox Last 24 Hr 97.7 F-98.6 F 78-100 - 101-116/65-77 97-97 GENERAL: The patient is awake, alert, and fully oriented, in no acute distress. NECK: Trachea midline, full range of motion, supple. LUNGS: decreased breath sounds HEART: Regular rate and rhythm, S1, S2 without murmur, rub or gallop. ABDOMEN: Soft, nontender, nondistended, normoactive bowel sounds, no guarding, no rebound, no hepatosplenomegaly, no masses. EXTREMITIES: 2+ pulses, warm, well-perfused, no edema. NEUROLOGICAL: Cranial nerves II through XII grossly intact. Normal speech, gait not observed. PSYCH: Normal mood, normal affect. SKIN: Warm, dry, normal turgor, no rashes or lesions noted Laboratory Results - last 24 hr 09/30/18 09/30/18 10/01/18 13:33 17:30 17:30 WBC 10.8 H RBC 2.81 L Hgb 9.4 L Hct 27.1 L MCV 96.6 H MCH 33.4 MCHC 34.6 RDW 16.6 H Plt Count 45 L D MPV 7.9 D PT with INR INR PTT (Actin FS) POC Glucometer Total Protein (PEP) 5.1 L Albumin (PEP) 2.9 Globulin 2.2 Albumin/Globulin Ratio 1.3 Jwieo-3-Suahmaxps (%) Cancelled Gjrhj-8-Rlcublunk (%) Cancelled Beta Globulins 0.7 Beta Globulins (%) Cancelled Gamma Globulins (%) Cancelled M-[place] % Cancelled BROOKS M-[place] Not observed Serum BROOKS Interpret IEP IgG 860 IEP IgA 166 IEP IgM 50 Ref Test Comments Cancelled Blood Type O POSITIVE Antibody Screen Negative Crossmatch See Detail 10/01/18 10/02/18 10/02/18 17:39 11:17 12:04 WBC RBC Hgb Hct MCV MCH MCHC RDW Plt Count MPV PT with INR 12.90 INR 1.09 PTT (Actin FS) 32.3 POC Glucometer 110 149 Total Protein (PEP) Albumin (PEP) Globulin Albumin/Globulin Ratio Lvgxn-3-Cjzctpxgl (%) Quibu-8-Xseticrub (%) Beta Globulins Beta Globulins (%) Gamma Globulins (%) M-[place] % BROOKS M-[place] Serum BROOKS Interpret IEP IgG IEP IgA IEP IgM Ref Test Comments Blood Type Antibody Screen Crossmatch Active Medications Generic Name Dose Route Start Last Admin Trade Name Freq PRN Reason Stop Dose Admin Acetaminophen 1,000 mg 09/30/18 03:24 09/30/18 20:19 Tylenol - PO 1,000 mg Q6H PRN Administration PAIN LEVEL 1-5 Amiodarone HCl 200 mg 09/30/18 10:00 10/02/18 10:01 Cordarone - PO 200 mg DAILY [facility] Administration Carvedilol 25 mg 10/01/18 11:45 10/02/18 10:01 Coreg - PO 25 mg BID [facility] Administration Chlorhexidine Gluconate 1 applic 09/30/18 22:00 10/01/18 22:10 Hibiclens For Decolonization - TP Not Given HS [facility]AR Guaifenesin 5 ml 09/30/18 17:34 10/01/18 23:15 Diabetic Tussin Dm - PO 5 ml Q6H PRN Administration COUGH Sodium Chloride 1,000 mls @ 75 mls/hr 09/30/18 03:15 10/02/18 06:17 Normal Saline - IV 75 mls/hr ASDIR [facility]AR Administration Piperacillin Sod/Tazobactam 50 mls @ 100 mls/hr 09/30/18 11:00 10/02/18 10:00 Sod 2.25 gm/ Dextrose IVPB 100 mls/hr Q8H-IV [facility] Administration Protocol Doxycycline Hyclate 100 mg/ 100 mls @ 50 mls/hr 09/30/18 11:15 10/02/18 10:02 Dextrose IVPB 50 mls/hr BID [facility] Administration Morphine Sulfate 2 mg 09/30/18 03:10 Morphine Sulfate IVPUSH Q6H PRN PAIN LEVEL 6-10 Mupirocin 1 applic 09/30/18 10:00 10/02/18 09:58 Bactroban Ointment (For Decolonization) - NS 10/05/18 09:59 Not Given BID [facility] Oseltamivir Phosphate 30 mg 09/30/18 11:15 10/02/18 10:01 Tamiflu - PO 10/05/18 11:14 30 mg BID [facility] Administration Rosuvastatin Calcium 10 mg 10/01/18 22:00 10/01/18 22:36 Crestor - PO 10 mg HS [facility] Administration ASSESSMENT/PLAN: This is a 53 year old male with a past medical history of congestive heart failure s/p ICD, CAD, DM, CKD, paroxysmal atrial fibrillation on xarelto, presented with a productive cough with brown sputum and flu like symptoms found to be severely pancytopenic. Pancytopenia sepsis secondary to pneumonia iron def anemia lung nodules with mediastinal lymph nodes acute on chronic CKD hx systolic CHF atrial fibrillation -pancytopenia improved; s/p granix and 1UPRBC -iron studies sig for iron deficiency; s/p venofer; s/p procrit; due to CKD -MDS work up including SPEP, UPEP, immunofixation, immunoglobulin levels; pending -due -maintain platelets 50-80; recheck cbc a 1hr post infusion (given one unit platelets today) -monitor pt/inr; -consider AC with lovenox or heparin after platelets improve Visit type - Emergency Visit Emergency Visit: Yes ED Registration Date: 09/30/18 Care time: The patient presented to the Emergency Department on the above date and was hospitalized for further evaluation of their emergent condition. - New Patient This patient is new to me today: No - Critical Care Critical Care patient: No
[2018-10-02 15:39] LABS: BASO % 0.3 % (0-2.0); EOS % 2.7 % (0-4.5); HEMATOCRIT 26.5 % (35.4-49); HEMOGLOBIN 9.1 GM/dL (11.7-16.9); LYMPH % 14.9 % (8-40); MCHC 34.3 g/dl (32.0-35.9); MEAN CELL VOLUME 96.3 fl (80-96); MEAN PLT VOLUME 9.1 fl (7.5-11.1); MONO % 4.9 % (3.8-10.2); NEUT % 77.2 % (42.8-82.8); PLATELET COUNT 118 K/MM3 (134-434); RBC 2.75 M/mm3 (4.00-5.60); WHITE BLOOD COUNT 7.9 K/mm3 (4.0-10.0)
--- NOTE | 2018-10-02 16:24 | PN ---
Progress Note, Physician History of Present Illness: Pt seen and examined at bedside. He is awake and alert. He says he feels better. - Current Medication List Current Medications: Active Medications Acetaminophen (Tylenol -) 1,000 mg PO Q6H PRN PRN Reason: PAIN LEVEL 1-5 Last Admin: 09/30/18 20:19 Dose: 1,000 mg Amiodarone HCl (Cordarone -) 200 mg PO DAILY [facility] Last Admin: 10/02/18 10:01 Dose: 200 mg Carvedilol (Coreg -) 25 mg PO BID [facility] Last Admin: 10/02/18 10:01 Dose: 25 mg Chlorhexidine Gluconate (Hibiclens For Decolonization -) 1 applic TP HS [facility] Last Admin: 10/01/18 22:10 Dose: Not Given Guaifenesin (Diabetic Tussin Dm -) 5 ml PO Q6H PRN PRN Reason: COUGH Last Admin: 10/01/18 23:15 Dose: 5 ml Sodium Chloride (Normal Saline -) 1,000 mls @ 75 mls/hr IV ASDIR [facility] Last Admin: 10/02/18 06:17 Dose: 75 mls/hr Piperacillin Sod/Tazobactam (Sod 2.25 gm/ Dextrose) 50 mls @ 100 mls/hr IVPB Q8H-IV [facility]; Protocol Last Admin: 10/02/18 10:00 Dose: 100 mls/hr Doxycycline Hyclate 100 mg/ (Dextrose) 100 mls @ 50 mls/hr IVPB BID [facility] Last Admin: 10/02/18 10:02 Dose: 50 mls/hr Morphine Sulfate (Morphine Sulfate) 2 mg IVPUSH Q6H PRN PRN Reason: PAIN LEVEL 6-10 Mupirocin (Bactroban Ointment (For Decolonization) -) 1 applic NS BID [facility] Stop: 10/05/18 09:59 Last Admin: 10/02/18 09:58 Dose: Not Given Oseltamivir Phosphate (Tamiflu -) 30 mg PO BID [facility] Stop: 10/05/18 11:14 Last Admin: 10/02/18 10:01 Dose: 30 mg Rosuvastatin Calcium (Crestor -) 10 mg PO HS [facility] Last Admin: 10/01/18 22:36 Dose: 10 mg - Objective Vital Signs: Vital Signs Temperature 98.5 F 10/02/18 13:46 Pulse Rate 85 10/02/18 13:46 Respiratory Rate 20 10/02/18 13:46 Blood Pressure 109/74 10/02/18 13:46 O2 Sat by Pulse Oximetry (%) 97 10/02/18 09:00 Constitutional: Yes: Calm Eyes: Yes: Conjunctiva Clear HENT: Yes: Atraumatic Neck: Yes: Supple Cardiovascular: Yes: S1, S2 Respiratory: Yes: On Nasal O2 Gastrointestinal: Yes: Soft, Abdomen, Obese Genitourinary: Yes: WNL Edema: Yes Edema: LLE: Trace, RLE: Trace Neurological: Yes: Oriented Psychiatric: Yes: Oriented Labs: CBC, BMP 10/02/18 15:18 10/01/18 05:30 INR, PTT INR 1.09 (0.83-1.09) 10/02/18 12:04 Problem List - Problems (1) Acute kidney injury superimposed on chronic kidney disease Code(s): N17.9 - ACUTE KIDNEY FAILURE, UNSPECIFIED; N18.9 - CHRONIC KIDNEY DISEASE, UNSPECIFIED (2) Anemia Code(s): D64.9 - ANEMIA, UNSPECIFIED Qualifiers: Anemia type: due to chronic kidney disease Chronic kidney disease stage: unspecified stage Qualified Code(s): N18.9 - Chronic kidney disease, unspecified; D63.1 - Anemia in chronic kidney disease (3) CAD (coronary artery disease) Code(s): I25.10 - ATHSCL HEART DISEASE OF [place] CORONARY ARTERY W/O ANG PCTRS Qualifiers: Coronary Disease-Associated Artery/Lesion type: [place] artery [place] vs. transplanted heart: [place] heart Associated angina: without angina Qualified Code(s): I25.10 - Atherosclerotic heart disease of [place] coronary artery without angina pectoris (4) Chronic kidney disease Code(s): N18.9 - CHRONIC KIDNEY DISEASE, UNSPECIFIED Qualifiers: Chronic kidney disease stage: unspecified stage Qualified Code(s): N18.9 - Chronic kidney disease, unspecified (5) Diabetes Code(s): E11.9 - TYPE 2 DIABETES MELLITUS WITHOUT COMPLICATIONS Qualifiers: Diabetes mellitus type: type 1 Diabetes mellitus complication status: with kidney complications Diabetes mellitus complication detail: with chronic kidney disease Chronic kidney disease stage: unspecified stage Qualified Code(s): E10.22 - Type 1 diabetes mellitus with diabetic chronic kidney disease (6) Fever Code(s): R50.9 - FEVER, UNSPECIFIED Qualifiers: Fever type: unspecified Qualified Code(s): R50.9 - Fever, unspecified (7) Hypotension Code(s): I95.9 - HYPOTENSION, UNSPECIFIED Qualifiers: Hypotension type: other hypotension type Qualified Code(s): I95.89 - Other hypotension (8) Pancytopenia Code(s): D61.818 - OTHER PANCYTOPENIA (9) Severe sepsis Code(s): A41.9 - SEPSIS, UNSPECIFIED ORGANISM; R65.20 - SEVERE SEPSIS WITHOUT SEPTIC SHOCK (10) Thrombocytopenia Code(s): D69.6 - THROMBOCYTOPENIA, UNSPECIFIED Assessment/Plan Current Medications Generic Name Dose Route Start Last Admin Trade Name Freq PRN Reason Stop Dose Admin Acetaminophen 1,000 mg 09/30/18 03:24 09/30/18 20:19 Tylenol - PO 1,000 mg Q6H PRN Administration PAIN LEVEL 1-5 Amiodarone HCl 200 mg 09/30/18 10:00 10/02/18 10:01 Cordarone - PO 200 mg DAILY [facility] Administration Carvedilol 25 mg 10/01/18 11:45 10/02/18 10:01 Coreg - PO 25 mg BID [facility] Administration Chlorhexidine Gluconate 1 applic 09/30/18 22:00 10/01/18 22:10 Hibiclens For Decolonization - TP Not Given HS [facility] Guaifenesin 5 ml 09/30/18 17:34 10/01/18 23:15 Diabetic Tussin Dm - PO 5 ml Q6H PRN Administration COUGH Sodium Chloride 1,000 mls @ 75 mls/hr 09/30/18 03:15 10/02/18 06:17 Normal Saline - IV 75 mls/hr ASDIR [facility] Administration Piperacillin Sod/Tazobactam 50 mls @ 100 mls/hr 09/30/18 11:00 10/02/18 10:00 Sod 2.25 gm/ Dextrose IVPB 100 mls/hr Q8H-IV [facility] Administration Protocol Doxycycline Hyclate 100 mg/ 100 mls @ 50 mls/hr 09/30/18 11:15 10/02/18 10:02 Dextrose IVPB 50 mls/hr BID [facility] Administration Morphine Sulfate 2 mg 09/30/18 03:10 Morphine Sulfate IVPUSH Q6H PRN PAIN LEVEL 6-10 Mupirocin 1 applic 09/30/18 10:00 10/02/18 09:58 Bactroban Ointment (For Decolonization) - NS 10/05/18 09:59 Not Given BID [facility] Oseltamivir Phosphate 30 mg 09/30/18 11:15 10/02/18 10:01 Tamiflu - PO 10/05/18 11:14 30 mg BID [facility] Administration Rosuvastatin Calcium 10 mg 10/01/18 22:00 10/01/18 22:36 Crestor - PO 10 mg HS [facility] Administration Impression 1. CKD 2. ESTEVAN 3. sepsis 4. PNA 5. pancytopenia 6. CHF 7. a-fib 8. hypotension 9. gout 10. r/o influenza Plan - d/c fluids - repeat labs in am - monitor renal function - platelets improved - ua neg for blood or protein - avoid nsaids - avoid nephrotoxins Dr Cardenas
--- NOTE | 2018-10-02 17:14 | PN ---
Progress Note, Physician History of Present Illness: AWAKE, ALERT CONTINUES TO C/O ABDOMINAL BLOATING NO C/O N/V/D OCCASIONAL COUGH NO C/O CHEST PAIN/ DYSPNEA TEMPS DOWN WBC IMPROVED AFTER GCSF PLT IMPROVED AFTERTRANSFUSION HIV (-) C/S NEG, VIRAL STUDIES PENDING - Current Medication List Current Medications: Active Medications Acetaminophen (Tylenol -) 1,000 mg PO Q6H PRN PRN Reason: PAIN LEVEL 1-5 Last Admin: 09/30/18 20:19 Dose: 1,000 mg Amiodarone HCl (Cordarone -) 200 mg PO DAILY [facility] Last Admin: 10/02/18 10:01 Dose: 200 mg Carvedilol (Coreg -) 25 mg PO BID [facility] Last Admin: 10/02/18 10:01 Dose: 25 mg Chlorhexidine Gluconate (Hibiclens For Decolonization -) 1 applic TP HS [facility] Last Admin: 10/01/18 22:10 Dose: Not Given Guaifenesin (Diabetic Tussin Dm -) 5 ml PO Q6H PRN PRN Reason: COUGH Last Admin: 10/01/18 23:15 Dose: 5 ml Piperacillin Sod/Tazobactam (Sod 2.25 gm/ Dextrose) 50 mls @ 100 mls/hr IVPB Q8H-IV [facility]; Protocol Last Admin: 10/02/18 10:00 Dose: 100 mls/hr Doxycycline Hyclate 100 mg/ (Dextrose) 100 mls @ 50 mls/hr IVPB BID [facility] Last Admin: 10/02/18 10:02 Dose: 50 mls/hr Morphine Sulfate (Morphine Sulfate) 2 mg IVPUSH Q6H PRN PRN Reason: PAIN LEVEL 6-10 Mupirocin (Bactroban Ointment (For Decolonization) -) 1 applic NS BID [facility] Stop: 10/05/18 09:59 Last Admin: 10/02/18 09:58 Dose: Not Given Oseltamivir Phosphate (Tamiflu -) 30 mg PO BID [facility] Stop: 10/05/18 11:14 Last Admin: 10/02/18 10:01 Dose: 30 mg Rosuvastatin Calcium (Crestor -) 10 mg PO HS [facility] Last Admin: 10/01/18 22:36 Dose: 10 mg - Objective Vital Signs: Vital Signs Temperature 98.5 F 10/02/18 13:46 Pulse Rate 85 02/21/19 13:46 Respiratory Rate 20 10/02/18 13:46 Blood Pressure 109/74 10/02/18 13:46 O2 Sat by Pulse Oximetry (%) 97 10/02/18 09:00 Constitutional: Yes: No Distress Eyes: Yes: Conjunctiva Clear Cardiovascular: Yes: Regular Rate and Rhythm, S1, S2 Respiratory: Yes: Other (+ CREPITATIONS, BASES) Gastrointestinal: Yes: Normal Bowel Sounds, Soft. No: Tenderness Edema: No Labs: CBC, BMP 10/02/18 15:18 10/01/18 05:30 INR, PTT INR 1.09 (0.83-1.09) 10/02/18 12:04 Assessment/Plan PNEUMONIA / ETIOLOGY ? VIRAL SEPSIS SECONDARY TO PNEUMONIA PANCYTOPENIA IMPROVED AFTER PRBCS, PLTS, GCSF AZOTEMIA AWAIT VIRAL STUDIES CONTINUE ZOSYN/ DOXYCYCLINE/ TAMIFLU
[2018-10-02] MEDS ORDERED: PT OWN MED DRAWER 7, Y5N ONE (21:31)
[2018-10-02] MEDS: CHLORHEXIDINE GLUCONATE 4% CLEANSER FOR DECOLONIZATION TP SCH (21:52)
[2018-10-02] MEDS: ROSUVASTATIN CA 10 MG TABLET (FP) PO SCH (21:55)
[2018-10-03] MEDS ORDERED: PIPERACILLIN/TAZOBACTAM 2.25 GM VIAL IVPB ONE ×2 (01:48→17:06)
[2018-10-03] MEDS ORDERED: DEXTROSE 5%-WATER - 50 ML IVPB ONE ×2 (01:49→17:06)
[2018-10-03] MEDS: PIPERACILLIN/TAZOB 2.25 GM 2.25 GM in DEXTROSE 5%-WATER - 50 ML IVPB SCH ×3 (02:00→17:28)
[2018-10-03 08:21] LABS: INR 1.13 (0.83-1.09); PROTHROMBIN TIME (PATIENT) 13.4 SEC (9.7-13.0)
[2018-10-03 08:22] LABS: ACTIVATED PTT 31.2 SECONDS (25.2-36.5)
[2018-10-03 08:58] LABS: ALBUMIN 2.6 g/dl (3.4-5.0); ALK PHOS 109 U/L (45-117); ANION GAP 9 MMOL/L (8-16); BILIRUBIN,TOTAL 0.8 mg/dL (0.2-1); BLOOD UREA NITROGEN 36 mg/dL (7-18); CALCIUM 8.2 mg/dL (8.5-10.1); CHLORIDE 113 mmol/L (98-107); CO2 19 mmol/L (21-32); CREATININE 2.6 mg/dL (0.55-1.3); GLUCOSE,RANDOM 100 mg/dL (74-106); POTASSIUM 3.5 mmol/L (3.5-5.1); SGOT/AST 22 U/L (15-37); SGPT/ALT 36 U/L (13-61); SODIUM 142 mmol/L (136-145); TOT PROT 5.6 g/dl (6.4-8.2)
[2018-10-03 09:05] LABS: BASO % 0.5 % (0-2.0); EOS % 3.5 % (0-4.5); HEMATOCRIT 25.6 % (35.4-49); HEMOGLOBIN 8.8 GM/dL (11.7-16.9); LYMPH % 15.1 % (8-40); MCH 33.1 pg (25.7-33.7); MCHC 34.4 g/dl (32.0-35.9); MEAN CELL VOLUME 96.4 fl (80-96); MEAN PLT VOLUME 9.9 fl (7.5-11.1); MONO % 9.7 % (3.8-10.2); NEUT % 71.2 % (42.8-82.8); PLATELET COUNT 138 K/MM3 (134-434); RBC 2.65 M/mm3 (4.00-5.60); RDW 17.2 % (11.9-15.9); WHITE BLOOD COUNT 7.6 K/mm3 (4.0-10.0)
--- NOTE | 2018-10-03 09:10 | PN ---
Progress Note, Physician History of Present Illness: Dyspnea improving, non-productive cough. - Current Medication List Current Medications: Active Medications Acetaminophen (Tylenol -) 1,000 mg PO Q6H PRN PRN Reason: PAIN LEVEL 1-5 Last Admin: 09/30/18 20:19 Dose: 1,000 mg Amiodarone HCl (Cordarone -) 200 mg PO DAILY [facility] Last Admin: 10/02/18 10:01 Dose: 200 mg Carvedilol (Coreg -) 25 mg PO BID [facility] Last Admin: 10/02/18 21:55 Dose: 25 mg Chlorhexidine Gluconate (Hibiclens For Decolonization -) 1 applic TP HS [facility] Last Admin: 10/02/18 21:52 Dose: Not Given Guaifenesin (Diabetic Tussin Dm -) 5 ml PO Q6H PRN PRN Reason: COUGH Last Admin: 10/01/18 23:15 Dose: 5 ml Piperacillin Sod/Tazobactam (Sod 2.25 gm/ Dextrose) 50 mls @ 100 mls/hr IVPB Q8H-IV [facility]; Protocol Last Admin: 10/03/18 02:00 Dose: 100 mls/hr Doxycycline Hyclate 100 mg/ (Dextrose) 100 mls @ 50 mls/hr IVPB BID [facility] Last Admin: 10/02/18 21:55 Dose: 50 mls/hr Mupirocin (Bactroban Ointment (For Decolonization) -) 1 applic NS BID [facility] Stop: 10/05/18 09:59 Last Admin: 10/02/18 21:52 Dose: Not Given Oseltamivir Phosphate (Tamiflu -) 30 mg PO BID [facility] Stop: 10/05/18 11:14 Last Admin: 10/02/18 21:55 Dose: 30 mg Rosuvastatin Calcium (Crestor -) 10 mg PO HS [facility] Last Admin: 10/02/18 21:55 Dose: 10 mg - Objective Vital Signs: Vital Signs Temperature 98.7 F 10/03/18 05:00 Pulse Rate 92 H 10/03/18 05:00 Respiratory Rate 20 10/03/18 05:00 Blood Pressure 115/73 10/03/18 05:00 O2 Sat by Pulse Oximetry (%) 95 10/02/18 20:40 Constitutional: Yes: No Distress, Calm Neck: Yes: Supple Cardiovascular: Yes: Regular Rate and Rhythm Respiratory: Yes: Regular, Diminished Gastrointestinal: Yes: Normal Bowel Sounds, Soft Edema: No Labs: CBC, BMP 10/03/18 07:18 10/03/18 07:18 INR, PTT INR 1.13 (0.83-1.09) H 10/03/18 07:18 - ....Imaging EKG: Report Reviewed (Tele: NSR) Problem List - Problems (1) ICD (implantable cardioverter-defibrillator) in place Code(s): Z95.810 - PRESENCE OF AUTOMATIC (IMPLANTABLE) CARDIAC DEFIBRILLATOR (2) Acute kidney injury superimposed on chronic kidney disease Code(s): N17.9 - ACUTE KIDNEY FAILURE, UNSPECIFIED; N18.9 - CHRONIC KIDNEY DISEASE, UNSPECIFIED (3) CAD (coronary artery disease) Code(s): I25.10 - ATHSCL HEART DISEASE OF [place] CORONARY ARTERY W/O ANG PCTRS Qualifiers: Coronary Disease-Associated Artery/Lesion type: [place] artery [place] vs. transplanted heart: [place] heart Associated angina: without angina Qualified Code(s): I25.10 - Atherosclerotic heart disease of [place] coronary artery without angina pectoris (4) HLD (hyperlipidemia) Code(s): E78.5 - HYPERLIPIDEMIA, UNSPECIFIED (5) IDDM (insulin dependent diabetes mellitus) Code(s): E11.9 - TYPE 2 DIABETES MELLITUS WITHOUT COMPLICATIONS; Z79.4 - LONG-TERM (CURRENT) USE OF INSULIN (6) Paroxysmal A-fib Code(s): I48.0 - PAROXYSMAL ATRIAL FIBRILLATION (7) Severe sepsis Code(s): A41.9 - SEPSIS, UNSPECIFIED ORGANISM; R65.20 - SEVERE SEPSIS WITHOUT SEPTIC SHOCK Assessment/Plan 1. Community acquired pneumonia with sepsis syndrome, ? flu 2. Resolving pancytopenia due to marrow suppression from above (Fe++ deficient- s/p venofer and procrit, thrombocytopenia - post transfusion of platelets) 3. LV systolic dysfunction with severely reduced LVEF 4. Acute on chronic class 2-3 NYHA classsification systolic LV failure 5. s/p ICD 6. PAF off DOAC (Xarelto), [id number] score of 4 7. DM 8. HTN 9. Hypercholesterolemia 10. Acute on CKD resolving 11. Severe OSAS PLAN: 1. Antibiotic coverage, Tamiflu, O2 as needed 2. Continue Amiodarone 200 mg QD, Carvedilol 25 bid, and Crestor 10 qhs 3. Entresto and Spironolactone have been held pending renal fxn stabilization 4. Resume renal-dosed Xarelto with plt recovery > 50 K 5. Obtain medical record from Dr. Prabhakar Cano including device info 6. D/c telemetry
[2018-10-03] MEDS: MUPIROCIN 2% TOPICAL OINTMENT FOR DECOLONIZATION NS SCH (09:52)
[2018-10-03] MEDS: AMIODARONE HCL 200 MG TABLET (FP) PO SCH (09:52)
[2018-10-03] MEDS: DOXYCYCLINE INJECTION 100 MG in DEXTROSE 5%-WATER - 100 ML IVPB SCH ×3 (09:52→22:16)
[2018-10-03] MEDS: CARVEDILOL 25 MG TABLET (FP) PO SCH ×2 (09:52→22:15)
[2018-10-03] MEDS: OSELTAMIVIR PHOSPHATE 30 MG CAPSULE PO SCH ×2 (09:52→22:14)
--- NOTE | 2018-10-03 11:27 | PN ---
Progress Note, Physician History of Present Illness: Pt seen and examined at bedside. He says he feels better. His cough is improved. He denies shortness of breath. - Current Medication List Current Medications: Active Medications Acetaminophen (Tylenol -) 1,000 mg PO Q6H PRN PRN Reason: PAIN LEVEL 1-5 Last Admin: 09/30/18 20:19 Dose: 1,000 mg Amiodarone HCl (Cordarone -) 200 mg PO DAILY [facility] Last Admin: 10/03/18 09:52 Dose: 200 mg Carvedilol (Coreg -) 25 mg PO BID [facility] Last Admin: 10/03/18 09:52 Dose: 25 mg Chlorhexidine Gluconate (Hibiclens For Decolonization -) 1 applic TP [facility] Last Admin: 10/02/18 21:52 Dose: Not Given Guaifenesin (Diabetic Tussin Dm -) 5 ml PO Q6H PRN PRN Reason: COUGH Last Admin: 10/01/18 23:15 Dose: 5 ml Piperacillin Sod/Tazobactam (Sod 2.25 gm/ Dextrose) 50 mls @ 100 mls/hr IVPB Q8H-IV [facility]; Protocol Last Admin: 10/03/18 09:53 Dose: Not Given Doxycycline Hyclate 100 mg/ (Dextrose) 100 mls @ 50 mls/hr IVPB BID [facility] Last Admin: 10/03/18 09:52 Dose: Not Given Mupirocin (Bactroban Ointment (For Decolonization) -) 1 applic NS BID [facility] Stop: 10/05/18 09:59 Last Admin: 10/03/18 09:52 Dose: Not Given Oseltamivir Phosphate (Tamiflu -) 30 mg PO BID [facility] Stop: 10/05/18 11:14 Last Admin: 10/03/18 09:52 Dose: 30 mg Rivaroxaban (Xarelto) 15 mg PO DAILY@1800 [facility] Rosuvastatin Calcium (Crestor -) 10 mg PO [facility] Last Admin: 10/02/18 21:55 Dose: 10 mg - Objective Vital Signs: Vital Signs Temperature 97.8 F 10/03/18 10:59 Pulse Rate 89 10/03/18 10:59 Respiratory Rate 18 10/03/18 10:59 Blood Pressure 142/66 10/03/18 10:59 O2 Sat by Pulse Oximetry (%) 96 10/03/18 09:00 Constitutional: Yes: Calm Eyes: Yes: Conjunctiva Clear HENT: Yes: Atraumatic Cardiovascular: Yes: S1, S2 Respiratory: Yes: CTA Bilaterally Gastrointestinal: Yes: Soft Genitourinary: Yes: WNL Musculoskeletal: Yes: WNL Edema: LLE: Trace, RLE: Trace Neurological: Yes: Oriented Psychiatric: Yes: Oriented Labs: CBC, BMP 10/03/18 07:18 10/03/18 07:18 INR, PTT INR 1.13 (0.83-1.09) H 10/03/18 07:18 Problem List - Problems (1) Acute kidney injury superimposed on chronic kidney disease Code(s): N17.9 - ACUTE KIDNEY FAILURE, UNSPECIFIED; N18.9 - CHRONIC KIDNEY DISEASE, UNSPECIFIED (2) Anemia Code(s): D64.9 - ANEMIA, UNSPECIFIED Qualifiers: Anemia type: due to chronic kidney disease Chronic kidney disease stage: unspecified stage Qualified Code(s): N18.9 - Chronic kidney disease, unspecified; D63.1 - Anemia in chronic kidney disease (3) CAD (coronary artery disease) Code(s): I25.10 - ATHSCL HEART DISEASE OF [place] CORONARY ARTERY W/O ANG PCTRS Qualifiers: Coronary Disease-Associated Artery/Lesion type: [place] artery [place] vs. transplanted heart: [place] heart Associated angina: without angina Qualified Code(s): I25.10 - Atherosclerotic heart disease of [place] coronary artery without angina pectoris (4) Chronic kidney disease Code(s): N18.9 - CHRONIC KIDNEY DISEASE, UNSPECIFIED Qualifiers: Chronic kidney disease stage: unspecified stage Qualified Code(s): N18.9 - Chronic kidney disease, unspecified (5) Diabetes Code(s): E11.9 - TYPE 2 DIABETES MELLITUS WITHOUT COMPLICATIONS Qualifiers: Diabetes mellitus type: type 1 Diabetes mellitus complication status: with kidney complications Diabetes mellitus complication detail: with chronic kidney disease Chronic kidney disease stage: unspecified stage Qualified Code(s): E10.22 - Type 1 diabetes mellitus with diabetic chronic kidney disease (6) Fever Code(s): R50.9 - FEVER, UNSPECIFIED Qualifiers: Fever type: unspecified Qualified Code(s): R50.9 - Fever, unspecified (7) Hypotension Code(s): I95.9 - HYPOTENSION, UNSPECIFIED Qualifiers: Hypotension type: other hypotension type Qualified Code(s): I95.89 - Other hypotension (8) Pancytopenia Code(s): D61.818 - OTHER PANCYTOPENIA (9) Severe sepsis Code(s): A41.9 - SEPSIS, UNSPECIFIED ORGANISM; R65.20 - SEVERE SEPSIS WITHOUT SEPTIC SHOCK (10) Thrombocytopenia Code(s): D69.6 - THROMBOCYTOPENIA, UNSPECIFIED Assessment/Plan Current Medications Generic Name Dose Route Start Last Admin Trade Name Freq PRN Reason Stop Dose Admin Acetaminophen 1,000 mg 09/30/18 03:24 09/30/18 20:19 Tylenol - PO 1,000 mg Q6H PRN Administration PAIN LEVEL 1-5 Amiodarone HCl 200 mg 09/30/18 10:00 10/03/18 09:52 Cordarone - PO 200 mg DAILY [facility] Administration Carvedilol 25 mg 10/01/18 11:45 10/03/18 09:52 Coreg - PO 25 mg BID [facility] Administration Chlorhexidine Gluconate 1 applic 09/30/18 22:00 10/02/18 21:52 Hibiclens For Decolonization - TP Not Given HS [facility] Guaifenesin 5 ml 09/30/18 17:34 10/01/18 23:15 Diabetic Tussin Dm - PO 5 ml Q6H PRN Administration COUGH Piperacillin Sod/Tazobactam 50 mls @ 100 mls/hr 09/30/18 11:00 10/03/18 09:53 Sod 2.25 gm/ Dextrose IVPB Not Given Q8H-IV [facility] Protocol Doxycycline Hyclate 100 mg/ 100 mls @ 50 mls/hr 09/30/18 11:15 10/03/18 09:52 Dextrose IVPB Not Given BID [facility] Mupirocin 1 applic 09/30/18 10:00 10/03/18 09:52 Bactroban Ointment (For Decolonization) - NS 10/05/18 09:59 Not Given BID [facility] Oseltamivir Phosphate 30 mg 09/30/18 11:15 10/03/18 09:52 Tamiflu - PO 10/05/18 11:14 30 mg BID [facility] Administration Rivaroxaban 15 mg 10/03/18 18:00 Xarelto PO DAILY@1800 [facility] Rosuvastatin Calcium 10 mg 10/01/18 22:00 10/02/18 21:55 Crestor - PO 10 mg HS [facility] Administration Impression 1. CKD 2. ESTEVAN 3. sepsis 4. PNA 5. pancytopenia 6. CHF 7. a-fib 8. hypotension 9. gout 10. r/o influenza Plan - renal function is improving - restart spironolactone tomorrow - monitor cbc - repeat bmp in am - pt has been off of fluids - avoid nsaids - avoid nephrotoxins Dr Cardenas
[2018-10-03 12:02] LABS: ANISOCYTOSIS 0; MACROCYTOSIS 0; PLATELET ESTIMATE DECREASED
--- NOTE | 2018-10-03 12:21 | PN ---
Progress Note (short form) - Note Progress Note: pt seen/ examined chart reviewed awake/ comfortable feels better denies pain Vital Signs Temp 97.8 F 10/03/18 10:59 Pulse 89 10/03/18 10:59 Resp 18 10/03/18 10:59 BP 142/66 10/03/18 10:59 Pulse Ox 96 10/03/18 09:00 Intake & Output 10/02/18 10/03/18 10/03/18 23:59 11:59 23:59 Intake Total 490 Balance 490 Intake: IVPB 10 Oral 480 Other: Voiding Method Toilet Toilet # Unmeasured Voids Void 1 1 Active Medications Acetaminophen (Tylenol -) 1,000 mg PO Q6H PRN PRN Reason: PAIN LEVEL 1-5 Last Admin: 09/30/18 20:19 Dose: 1,000 mg Amiodarone HCl (Cordarone -) 200 mg PO DAILY [facility] Last Admin: 10/03/18 09:52 Dose: 200 mg Carvedilol (Coreg -) 25 mg PO BID [facility] Last Admin: 10/03/18 09:52 Dose: 25 mg Chlorhexidine Gluconate (Hibiclens For Decolonization -) 1 applic TP HS [facility] Last Admin: 10/02/18 21:52 Dose: Not Given Guaifenesin (Diabetic Tussin Dm -) 5 ml PO Q6H PRN PRN Reason: COUGH Last Admin: 10/01/18 23:15 Dose: 5 ml Piperacillin Sod/Tazobactam (Sod 2.25 gm/ Dextrose) 50 mls @ 100 mls/hr IVPB Q8H-IV [facility]; Protocol Last Admin: 10/03/18 09:53 Dose: Not Given Doxycycline Hyclate 100 mg/ (Dextrose) 100 mls @ 50 mls/hr IVPB BID [facility] Last Admin: 10/03/18 09:52 Dose: Not Given Mupirocin (Bactroban Ointment (For Decolonization) -) 1 applic NS BID [facility] Stop: 10/05/18 09:59 Last Admin: 10/03/18 09:52 Dose: Not Given Oseltamivir Phosphate (Tamiflu -) 30 mg PO BID [facility] Stop: 10/05/18 11:14 Last Admin: 10/03/18 09:52 Dose: 30 mg Rivaroxaban (Xarelto) 15 mg PO DAILY@1800 [facility] Rosuvastatin Calcium (Crestor -) 10 mg PO [facility] Last Admin: 10/02/18 21:55 Dose: 10 mg Spironolactone (Aldactone -) 25 mg PO DAILY [facility] CBC, BMP 10/03/18 07:18 10/03/18 07:18 Microbiology 10/01/18 18:30 Gram Stain - Final Sputum - Expectorated Sputum Culture - Preliminary NORMAL RESPIRATORY [facility] 09/29/18 19:50 Blood Culture - Preliminary Blood - Peripheral Venous NO GROWTH OBTAINED AFTER 72 HOURS, INCUBATION TO CONTINUE FOR 2 DAYS. 09/29/18 19:50 Blood Culture - Preliminary Blood - Peripheral Venous NO GROWTH OBTAINED AFTER 72 HOURS, INCUBATION TO CONTINUE FOR 2 DAYS. Physical Exam. awake/ comfortable S1 S2 RRR Lungs decreased at bases Abd- soft, non tender . bs + No edema neuro - alert/awake. A/P Sepsis arf on crf Pancytopenia afib viral syndrome clinically better continue present care abx per i/d monitor lytes oob - chair will follow discussed with nursing staff also Problem List - Problems (1) Pancytopenia Code(s): D61.818 - OTHER PANCYTOPENIA (2) Acute kidney injury superimposed on chronic kidney disease Code(s): N17.9 - ACUTE KIDNEY FAILURE, UNSPECIFIED; N18.9 - CHRONIC KIDNEY DISEASE, UNSPECIFIED (3) Anemia Code(s): D64.9 - ANEMIA, UNSPECIFIED Qualifiers: Anemia type: due to chronic kidney disease Chronic kidney disease stage: unspecified stage Qualified Code(s): N18.9 - Chronic kidney disease, unspecified; D63.1 - Anemia in chronic kidney disease (4) CAD (coronary artery disease) Code(s): I25.10 - ATHSCL HEART DISEASE OF [place] CORONARY ARTERY W/O ANG PCTRS Qualifiers: Coronary Disease-Associated Artery/Lesion type: [place] artery [place] vs. transplanted heart: [place] heart Associated angina: without angina Qualified Code(s): I25.10 - Atherosclerotic heart disease of [place] coronary artery without angina pectoris (5) Severe sepsis Code(s): A41.9 - SEPSIS, UNSPECIFIED ORGANISM; R65.20 - SEVERE SEPSIS WITHOUT SEPTIC SHOCK
[2018-10-03 12:45] LABS: TEAR DROP CELLS 1+
[2018-10-03] MEDS ORDERED: ACETAMINOPHEN 500 MG TABLET (FP) PO PRN (13:37)
[2018-10-03] MEDS ORDERED: guaiFENesin/D-M SUGAR-FREE/ACLHOL-FREE 118 ML BOTTLE PO PRN (13:37)
--- NOTE | 2018-10-03 14:13 | PN ---
Progress Note, Physician History of Present Illness: AWAKE, ALERT SEATED IN BED CONTINUES TO C/O ABDOMINAL BLOATING NO C/O N/V/D REPORTS BM X2 OCCASIONAL COUGH YELLOW SPUTUM NO C/O CHEST PAIN/ DYSPNEA TEMPS DOWN WBC IMPROVED AFTER GCSF PLT IMPROVED AFTER TRANSFUSION HIV (-) C/S NEG, VIRAL STUDIES PENDING - Current Medication List Current Medications: Active Medications Acetaminophen (Tylenol -) 1,000 mg PO Q6H PRN PRN Reason: PAIN LEVEL 1-5 Amiodarone HCl (Cordarone -) 200 mg PO DAILY [facility] Carvedilol (Coreg -) 25 mg PO BID [facility] Last Admin: 10/03/18 09:52 Dose: 25 mg Guaifenesin (Diabetic Tussin Dm -) 5 ml PO Q6H PRN PRN Reason: COUGH Doxycycline Hyclate 100 mg/ (Dextrose) 100 mls @ 50 mls/hr IVPB BID [facility] Piperacillin Sod/Tazobactam (Sod 2.25 gm/ Dextrose) 50 mls @ 100 mls/hr IVPB Q8H-IV [facility]; Protocol Oseltamivir Phosphate (Tamiflu -) 30 mg PO BID [facility] Stop: 10/05/18 11:14 Rivaroxaban (Xarelto) 15 mg PO DAILY@1800 [facility] Rosuvastatin Calcium (Crestor -) 10 mg PO HS [facility] Last Admin: 10/02/18 21:55 Dose: 10 mg Spironolactone (Aldactone -) 25 mg PO DAILY [facility] - Objective Vital Signs: Vital Signs Temperature 97.8 F 10/03/18 10:59 Pulse Rate 89 10/03/18 10:59 Respiratory Rate 18 10/03/18 10:59 Blood Pressure 142/66 10/03/18 10:59 O2 Sat by Pulse Oximetry (%) 96 10/03/18 09:00 Constitutional: Yes: No Distress Eyes: Yes: Conjunctiva Clear Cardiovascular: Yes: Regular Rate and Rhythm, S1, S2 Respiratory: Yes: Rhonchi Gastrointestinal: Yes: Normal Bowel Sounds, Soft, Abdomen, Obese. No: Tenderness Edema: No Labs: CBC, BMP 10/03/18 07:18 10/03/18 07:18 INR, PTT INR 1.13 (0.83-1.09) H 10/03/18 07:18 Assessment/Plan PNEUMONIA / ETIOLOGY ? VIRAL SEPSIS SECONDARY TO PNEUMONIA PANCYTOPENIA IMPROVED AFTER PRBCS, PLTS, GCSF AZOTEMIA AWAIT VIRAL STUDIES CONTINUE ZOSYN/ DOXYCYCLINE/ TAMIFLU
[2018-10-03 16:22] LABS: TOTAL PROTEIN, URINE 18.4 mg/dL (Not Estab.)
[2018-10-03 16:22] LABS: HGB SOLUBILITY Negative (Negative); Hgb A 97.7 % (96.4-98.8); Hgb C 0 % (0.0); Hgb F 0 % (0.0-2.0); Hgb S 0 % (0.0)
[2018-10-03 16:33] LABS: BASO % 1.1 % (0-2.0); EOS % 3.2 % (0-4.5); HEMATOCRIT 27.8 % (35.4-49); HEMOGLOBIN 9.4 GM/dL (11.7-16.9); LYMPH % 17.5 % (8-40); MCH 32.8 pg (25.7-33.7); MEAN CELL VOLUME 96.6 fl (80-96); MEAN PLT VOLUME 9.9 fl (7.5-11.1); MONO % 9.9 % (3.8-10.2); NEUT % 68.3 % (42.8-82.8); PLATELET COUNT 164 K/MM3 (134-434); RBC 2.88 M/mm3 (4.00-5.60); RDW 17.1 % (11.9-15.9); WHITE BLOOD COUNT 7.4 K/mm3 (4.0-10.0)
[2018-10-03 17:03] LABS: ALBUMIN 2.7 g/dl (3.4-5.0); ALK PHOS 120 U/L (45-117); BILIRUBIN,TOTAL 0.9 mg/dL (0.2-1); CALCIUM 8.1 mg/dL (8.5-10.1); CHLORIDE 113 mmol/L (98-107); CO2 21 mmol/L (21-32); CREATININE 2.6 mg/dL (0.55-1.3); GLUCOSE,RANDOM 138 mg/dL (74-106); SGOT/AST 24 U/L (15-37); SGPT/ALT 33 U/L (13-61)
[2018-10-03 17:04] LABS: ANION GAP 8 MMOL/L (8-16); BLOOD UREA NITROGEN 36 mg/dL (7-18); MAGNESIUM 2.4 mg/dL (1.8-2.4); PHOSPHOROUS 2.4 mg/dL (2.5-4.9); POTASSIUM 3.6 mmol/L (3.5-5.1); SODIUM 141 mmol/L (136-145)
[2018-10-03] MEDS ORDERED: PT OWN MED DRAWER 7, Y5N ONE ×2 (17:06→21:24)
[2018-10-03] MEDS: RIVAROXABAN 15 MG TABLET PO SCH (18:26)
--- NOTE | 2018-10-03 18:32 | PATH ---
Surgical Pathology Report Patient Name: MANSOOR VNAN [facility]. Rec. #: [id number] /Age/Gender: 1965 (Age: 53) / M Account: [id number] Location: [address] [place] [address] Taken: 10/02/2018 Received: 10/02/2018 Reported: 10/03/2018 Physicians: Citlalli Saunders M.D. Specimen(s) Received PERIPHERAL BLOOD Clinical History Neutropenia Final Diagnosis COMPREHENSIVE FLOW PANEL performed and interpreted at [place], [place] ([id number]) shows the following: INTERPRETATION: In the samples analyzed, there is no evidence of B or T-cell proliferative disorders or increased blasts. MYELODYSPLASIA FISH PANEL performed and interpreted at [place], [place] ([id number]) shows the following: INTERPRETATION: No evidence of deletion 5q or monosomy 5 is present. No evidence of deletion 7q or monosomy 7 is present. No evidence of trisomy 8 (+8) is present. No evidence of deletion 13q14.2 is present. No evidence of rearrangement of 11q23. No evidence of a deletion of the p53 (17p13) locus. No evidence of deletion 20q12 is present See [facility] reports ([id number] and [id number]) for additional details. Electronically Signed Danielle Rodriguez M.D. Addendum Reported: 10/10/2018 Addendum Diagnosis CYTOGENETIC KARYOTYPE ANALYSIS performed and interpreted at [facility] ([id number]) shows the following: RESULTS: 46, XY [20] INTERPRETATION: Normal Karyotype Within the limits of the cytogenetic methods, the chromosomes had normal G-banding patterns with no evidence of an acquired clonal numerical or structural abnormality. This normal result does not rule out a neoplasm. Subtle rearrangements or the presence of an aberrant clone in a low proportion of cells cannot be ruled out. Correlation with other clinical and hematologic data is suggested. Analysis was performed on cells from unstimulated tissue cultures. See [facility] report for additional details ([id number]). Danielle Rodriguez M.D. Gross Description Received are 4 green top tubes of blood which are sent to [facility]. /10/02/2018 saudi10/02/2018
[2018-10-03] MEDS ORDERED: MUPIROCIN 2% TOPICAL OINTMENT FOR DECOLONIZATION NS SCH (22:00)
[2018-10-03] MEDS ORDERED: CHLORHEXIDINE GLUCONATE 4% CLEANSER FOR DECOLONIZATION TP SCH (22:00)
[2018-10-03] MEDS: ROSUVASTATIN CA 10 MG TABLET (FP) PO SCH (22:15)
[2018-10-04] MEDS ORDERED: PIPERACILLIN/TAZOBACTAM 2.25 GM VIAL IVPB ONE ×3 (01:17→16:07)
[2018-10-04] MEDS ORDERED: DEXTROSE 5%-WATER - 50 ML IVPB ONE ×3 (01:18→16:08)
[2018-10-04] MEDS: PIPERACILLIN/TAZOB 2.25 GM 2.25 GM in DEXTROSE 5%-WATER - 50 ML IVPB SCH ×3 (01:41→17:18)
[2018-10-04 09:14] LABS: ANION GAP 8 MMOL/L (8-16); BLOOD UREA NITROGEN 37 mg/dL (7-18); CALCIUM 8.5 mg/dL (8.5-10.1); CHLORIDE 115 mmol/L (98-107); CO2 20 mmol/L (21-32); CREATININE 2.8 mg/dL (0.55-1.3); GLUCOSE,RANDOM 141 mg/dL (74-106); POTASSIUM 3.9 mmol/L (3.5-5.1); SODIUM 142 mmol/L (136-145)
[2018-10-04] MEDS ORDERED: PT OWN MED DRAWER 7, Y5N ONE ×2 (10:07→21:07)
[2018-10-04] MEDS: AMIODARONE HCL 200 MG TABLET (FP) PO SCH (10:11)
[2018-10-04] MEDS: CARVEDILOL 25 MG TABLET (FP) PO SCH ×2 (10:11→21:51)
[2018-10-04] MEDS: SPIRONOLACTONE 25 MG TABLET (FP) PO SCH (10:11)
[2018-10-04] MEDS: OSELTAMIVIR PHOSPHATE 30 MG CAPSULE PO SCH ×2 (10:11→21:51)
[2018-10-04] MEDS: DOXYCYCLINE INJECTION 100 MG in DEXTROSE 5%-WATER - 100 ML IVPB SCH ×2 (11:10→21:52)
--- NOTE | 2018-10-04 12:04 | PN ---
Progress Note (short form) - Note Progress Note: pt feels much better no SOB, chest pain Vital Signs - 24 hr 10/03/18 10/03/18 10/03/18 14:00 15:02 19:00 Temperature 98.0 F 98.2 F Pulse Rate 87 85 Respiratory 18 21 H Rate Blood Pressure 117/84 117/85 O2 Sat by Pulse 95 Oximetry (%) 10/03/18 10/04/18 10/04/18 21:00 06:00 09:30 Temperature 97.7 F 98.2 F 97.8 F Pulse Rate 93 H 87 89 Respiratory 17 18 16 Rate Blood Pressure 120/82 107/71 114/89 O2 Sat by Pulse 95 Oximetry (%) 10/04/18 11:34 Temperature 97.3 F L Pulse Rate 88 Respiratory 16 Rate Blood Pressure 115/84 O2 Sat by Pulse Oximetry (%) Current Medications Generic Name Dose Route Start Last Admin Trade Name Freq PRN Reason Stop Dose Admin Acetaminophen 1,000 mg 10/03/18 13:37 Tylenol - PO Q6H PRN PAIN LEVEL 1-5 Amiodarone HCl 200 mg 10/04/18 10:00 10/04/18 10:11 Cordarone - PO 200 mg DAILY [facility] Administration Carvedilol 25 mg 10/01/18 11:45 10/04/18 10:11 Coreg - PO 25 mg BID [facility] Administration Guaifenesin 5 ml 10/03/18 13:37 10/03/18 22:25 Diabetic Tussin Dm - PO 5 ml Q6H PRN Administration COUGH Doxycycline Hyclate 100 mg/ 100 mls @ 50 mls/hr 10/03/18 22:00 10/04/18 11:10 Dextrose IVPB 50 mls/hr BID [facility] Administration Piperacillin Sod/Tazobactam 50 mls @ 100 mls/hr 10/03/18 18:00 10/04/18 10:26 Sod 2.25 gm/ Dextrose IVPB 100 mls/hr Q8H-IV [facility] Administration Protocol Oseltamivir Phosphate 30 mg 10/03/18 22:00 10/04/18 10:11 Tamiflu - PO 10/05/18 11:14 30 mg BID [facility] Administration Rivaroxaban 15 mg 10/03/18 18:00 10/03/18 18:26 Xarelto PO 15 mg DAILY@1800 [facility] Administration Rosuvastatin Calcium 10 mg 10/01/18 22:00 10/03/18 22:15 Crestor - PO 10 mg HS [facility] Administration Spironolactone 25 mg 10/04/18 10:00 10/04/18 10:11 Aldactone - PO 25 mg DAILY [facility] Administration Laboratory Results - last 24 hr 09/30/18 09/30/18 10/01/18 17:30 18:30 05:30 WBC RBC Hgb Hct MCV MCH MCHC RDW Plt Count MPV Absolute Neuts (auto) Neutrophils % Neutrophils % (Manual) Band Neutrophils % Lymphocytes % Lymphocytes % (Manual) Monocytes % Monocytes % (Manual) Eosinophils % Eosinophils % (Manual) Basophils % Basophils % (Manual) Myelocytes % (Man) Promyelocytes % (Man) Blast Cells % (Manual) Nucleated RBC % Metamyelocytes Hypochromia Platelet Estimate Polychromasia Poikilocytosis Anisocytosis Microcytosis Macrocytosis Tear Drop Cells [place] Cells Hemoglobin A 97.7 Hemoglobin A2 2.3 Hemoglobin C 0 Hemoglobin S 0 Variant Hemoglobin 0.0 Hemoglobin Interpret Maternal Rh 0 Hemoglobin Solubility Negative Sodium Potassium Chloride Carbon Dioxide Anion Gap BUN Creatinine Creat Clearance w eGFR POC Glucometer Random Glucose Calcium Phosphorus Magnesium Total Bilirubin AST ALT Alkaline Phosphatase Total Protein Albumin Vbykd-8-Dwnwavcda (%) 4.0 Mzhqa-0-Dpitnhqpn (%) 9.2 Beta Globulins (%) 26.6 Gamma Globulins (%) 22.8 M-[place] % Comment: Urine Total Protein 18.4 Urine PEP Interpret 37.4 Ref Test Comments Blood Type O POSITIVE Antibody Screen Negative Crossmatch See Detail 10/03/18 10/03/18 10/03/18 07:18 14:45 14:45 WBC 7.4 RBC 2.88 L Hgb 9.4 L Hct 27.8 L MCV 96.6 H MCH 32.8 MCHC 34.0 RDW 17.1 H Plt Count 164 MPV 9.9 Absolute Neuts (auto) 5.1 Neutrophils % 68.3 Neutrophils % (Manual) 73.7 Band Neutrophils % 1.0 Lymphocytes % 17.5 Lymphocytes % (Manual) 17.2 Monocytes % 9.9 Monocytes % (Manual) 0 L D Eosinophils % 3.2 Eosinophils % (Manual) 5.1 H D Basophils % 1.1 Basophils % (Manual) 0.0 Myelocytes % (Man) 1 Promyelocytes % (Man) 0 Blast Cells % (Manual) 0 Nucleated RBC % 0 Metamyelocytes 2 D Hypochromia 1+ Platelet Estimate Decreased Polychromasia 1+ Poikilocytosis 1+ Anisocytosis 0 Microcytosis 0 Macrocytosis 0 Tear Drop Cells 1+ [place] Cells 1+ Hemoglobin A Hemoglobin A2 Hemoglobin C Hemoglobin S Variant Hemoglobin Hemoglobin Interpret Maternal Rh Hemoglobin Solubility Sodium 141 Potassium 3.6 Chloride 113 H Carbon Dioxide 21 Anion Gap 8 BUN 36 H Creatinine 2.6 H Creat Clearance w eGFR 25.85 POC Glucometer Random Glucose 138 H Calcium 8.1 L Phosphorus 2.4 L Magnesium 2.4 Total Bilirubin 0.9 AST 24 ALT 33 Alkaline Phosphatase 120 H Total Protein 6.0 L Albumin 2.7 L Ocino-4-Hvfvcrzah (%) Gvlpv-2-Tjgoxdzwg (%) Beta Globulins (%) Gamma Globulins (%) M-[place] % Urine Total Protein Urine PEP Interpret Ref Test Comments Blood Type Antibody Screen Crossmatch 10/04/18 10/04/18 10/04/18 06:18 07:00 11:17 WBC RBC Hgb Hct MCV MCH MCHC RDW Plt Count MPV Absolute Neuts (auto) Neutrophils % Neutrophils % (Manual) Band Neutrophils % Lymphocytes % Lymphocytes % (Manual) Monocytes % Monocytes % (Manual) Eosinophils % Eosinophils % (Manual) Basophils % Basophils % (Manual) Myelocytes % (Man) Promyelocytes % (Man) Blast Cells % (Manual) Nucleated RBC % Metamyelocytes Hypochromia Platelet Estimate Polychromasia Poikilocytosis Anisocytosis Microcytosis Macrocytosis Tear Drop Cells [place] Cells Hemoglobin A Hemoglobin A2 Hemoglobin C Hemoglobin S Variant Hemoglobin Hemoglobin Interpret Maternal Rh Hemoglobin Solubility Sodium 142 Potassium 3.9 Chloride 115 H Carbon Dioxide 20 L Anion Gap 8 BUN 37 H Creatinine 2.8 H Creat Clearance w eGFR 23.73 POC Glucometer 122 155 Random Glucose 141 H Calcium 8.5 Phosphorus Magnesium Total Bilirubin AST ALT Alkaline Phosphatase Total Protein Albumin Fzvqx-3-Tyqqdidrs (%) Zxifg-3-Tiihcpcsb (%) Beta Globulins (%) Gamma Globulins (%) M-[place] % Urine Total Protein Urine PEP Interpret Ref Test Comments Blood Type Antibody Screen Crossmatch S1 S2 RRR Lungs decreased Abd- soft, generalised tenderness, BS+ No edema PLAN sepsis improving s/p PRBC and Granix, s/p plat Cell count improved On iv antibiotics and empiric Tamiflu respiratory virus culture negative and urine antigens negative Physical therapy evaluation dc plan per ID Problem List - Problems (1) Pancytopenia Code(s): D61.818 - OTHER PANCYTOPENIA (2) Acute kidney injury superimposed on chronic kidney disease Code(s): N17.9 - ACUTE KIDNEY FAILURE, UNSPECIFIED; N18.9 - CHRONIC KIDNEY DISEASE, UNSPECIFIED (3) Anemia Code(s): D64.9 - ANEMIA, UNSPECIFIED Qualifiers: Anemia type: due to chronic kidney disease Chronic kidney disease stage: unspecified stage Qualified Code(s): N18.9 - Chronic kidney disease, unspecified; D63.1 - Anemia in chronic kidney disease (4) CAD (coronary artery disease) Code(s): I25.10 - ATHSCL HEART DISEASE OF [place] CORONARY ARTERY W/O ANG PCTRS Qualifiers: Coronary Disease-Associated Artery/Lesion type: [place] artery [place] vs. transplanted heart: [place] heart Associated angina: without angina Qualified Code(s): I25.10 - Atherosclerotic heart disease of [place] coronary artery without angina pectoris (5) Severe sepsis Code(s): A41.9 - SEPSIS, UNSPECIFIED ORGANISM; R65.20 - SEVERE SEPSIS WITHOUT SEPTIC SHOCK
--- NOTE | 2018-10-04 12:22 | PN ---
Progress Note, Physician Chief Complaint: Events noted Feels better History of Present Illness: Patient was seen and examined. Awake and alert. Chart was reviewed Denies chest pain, less SOB and cough. No palpitations - Current Medication List Current Medications: Active Medications Acetaminophen (Tylenol -) 1,000 mg PO Q6H PRN PRN Reason: PAIN LEVEL 1-5 Amiodarone HCl (Cordarone -) 200 mg PO DAILY [facility] Last Admin: 10/04/18 10:11 Dose: 200 mg Carvedilol (Coreg -) 25 mg PO BID [facility] Last Admin: 10/04/18 10:11 Dose: 25 mg Guaifenesin (Diabetic Tussin Dm -) 5 ml PO Q6H PRN PRN Reason: COUGH Last Admin: 10/03/18 22:25 Dose: 5 ml Doxycycline Hyclate 100 mg/ (Dextrose) 100 mls @ 50 mls/hr IVPB BID [facility] Last Admin: 10/04/18 11:10 Dose: 50 mls/hr Piperacillin Sod/Tazobactam (Sod 2.25 gm/ Dextrose) 50 mls @ 100 mls/hr IVPB Q8H-IV [facility]; Protocol Last Admin: 10/04/18 10:26 Dose: 100 mls/hr Oseltamivir Phosphate (Tamiflu -) 30 mg PO BID [facility] Stop: 10/05/18 11:14 Last Admin: 10/04/18 10:11 Dose: 30 mg Rivaroxaban (Xarelto) 15 mg PO DAILY@1800 [facility] Last Admin: 10/03/18 18:26 Dose: 15 mg Rosuvastatin Calcium (Crestor -) 10 mg PO HS [facility] Last Admin: 10/03/18 22:15 Dose: 10 mg Spironolactone (Aldactone -) 25 mg PO DAILY [facility] Last Admin: 10/04/18 10:11 Dose: 25 mg - Objective Vital Signs: Vital Signs Temperature 97.3 F L 10/04/18 11:34 Pulse Rate 88 10/04/18 11:34 Respiratory Rate 16 10/04/18 11:34 Blood Pressure 115/84 10/04/18 11:34 O2 Sat by Pulse Oximetry (%) 95 10/03/18 21:00 Eyes: Yes: PERRL HENT: Yes: Atraumatic Neck: Yes: Supple Cardiovascular: Yes: Regular Rate and Rhythm, S1, S2 Respiratory: Yes: Diminished Gastrointestinal: Yes: Normal Bowel Sounds, Soft. No: Tenderness Edema: No Labs: CBC, BMP 10/03/18 14:45 10/04/18 07:00 INR, PTT INR 1.13 (0.83-1.09) H 10/03/18 07:18 Problem List - Problems (1) Acute kidney injury superimposed on chronic kidney disease Code(s): N17.9 - ACUTE KIDNEY FAILURE, UNSPECIFIED; N18.9 - CHRONIC KIDNEY DISEASE, UNSPECIFIED (2) Anemia Code(s): D64.9 - ANEMIA, UNSPECIFIED Qualifiers: Anemia type: due to chronic kidney disease Chronic kidney disease stage: unspecified stage Qualified Code(s): N18.9 - Chronic kidney disease, unspecified; D63.1 - Anemia in chronic kidney disease (3) CAD (coronary artery disease) Code(s): I25.10 - ATHSCL HEART DISEASE OF [place] CORONARY ARTERY W/O ANG PCTRS Qualifiers: Coronary Disease-Associated Artery/Lesion type: [place] artery [place] vs. transplanted heart: [place] heart Associated angina: without angina Qualified Code(s): I25.10 - Atherosclerotic heart disease of [place] coronary artery without angina pectoris (4) Cardiomyopathy Code(s): I42.9 - CARDIOMYOPATHY, UNSPECIFIED (5) Diabetes Code(s): E11.9 - TYPE 2 DIABETES MELLITUS WITHOUT COMPLICATIONS Qualifiers: Diabetes mellitus type: type 1 Diabetes mellitus complication status: with kidney complications Diabetes mellitus complication detail: with chronic kidney disease Chronic kidney disease stage: unspecified stage Qualified Code(s): E10.22 - Type 1 diabetes mellitus with diabetic chronic kidney disease (6) HLD (hyperlipidemia) Code(s): E78.5 - HYPERLIPIDEMIA, UNSPECIFIED Qualifiers: Hyperlipidemia type: pure hypercholesterolemia Qualified Code(s): E78.00 - Pure hypercholesterolemia, unspecified; E78.0 - Pure hypercholesterolemia (7) ICD (implantable cardioverter-defibrillator) in place Code(s): Z95.810 - PRESENCE OF AUTOMATIC (IMPLANTABLE) CARDIAC DEFIBRILLATOR (8) Pancytopenia Code(s): D61.818 - OTHER PANCYTOPENIA (9) Paroxysmal A-fib Code(s): I48.0 - PAROXYSMAL ATRIAL FIBRILLATION (10) Pneumonia Code(s): J18.9 - PNEUMONIA, UNSPECIFIED ORGANISM (11) Pulmonary HTN Code(s): I27.20 - PULMONARY HYPERTENSION, UNSPECIFIED (12) Severe sepsis Code(s): A41.9 - SEPSIS, UNSPECIFIED ORGANISM; R65.20 - SEVERE SEPSIS WITHOUT SEPTIC SHOCK (13) Thrombocytopenia Code(s): D69.6 - THROMBOCYTOPENIA, UNSPECIFIED Assessment/Plan 1. Community acquired pneumonia with sepsis syndrome, ? flu 2. Resolving pancytopenia due to marrow suppression 3. LV systolic dysfunction with severely reduced LVEF 4. Acute on chronic class 2-3 NYHA classification systolic LV failure 5. ICD 6. PAF off DOAC (Xarelto), [id number] score of 4 7. DM 8. HTN 9. Hypercholesterolemia 10. Acute on CKD 11. Severe OSAS PLAN: 1. Antibiotic coverage, Tamiflu and O2 as needed 2. Continue Amiodarone 200 mg QD, Carvedilol 25 mg BID, and Crestor 10 mg QHS 3. Entresto and Spironolactone have been held pending renal function stabilization 4. Resume Xarelto when cleared Follow up with Dr. Prabhakar Cano upon discharge Nato Britt MD
--- NOTE | 2018-10-04 12:35 | PN ---
Progress Note (short form) - Note Progress Note: problems 1. CKD 2. ESTEVAN 3. sepsis 4. PNA 5. pancytopenia 6. CHF 7. a-fib 8. hypotension 9. gout 10. r/o influenza Current Medications Acetaminophen (Tylenol -) 1,000 mg PO Q6H PRN PRN Reason: PAIN LEVEL 1-5 Amiodarone HCl (Cordarone -) 200 mg PO DAILY [facility] Last Admin: 10/04/18 10:11 Dose: 200 mg Carvedilol (Coreg -) 25 mg PO BID [facility] Last Admin: 10/04/18 10:11 Dose: 25 mg Guaifenesin (Diabetic Tussin Dm -) 5 ml PO Q6H PRN PRN Reason: COUGH Last Admin: 10/03/18 22:25 Dose: 5 ml Doxycycline Hyclate 100 mg/ (Dextrose) 100 mls @ 50 mls/hr IVPB BID [facility] Last Admin: 10/04/18 11:10 Dose: 50 mls/hr Piperacillin Sod/Tazobactam (Sod 2.25 gm/ Dextrose) 50 mls @ 100 mls/hr IVPB Q8H-IV [facility]; Protocol Last Admin: 10/04/18 10:26 Dose: 100 mls/hr Oseltamivir Phosphate (Tamiflu -) 30 mg PO BID [facility] Stop: 10/05/18 11:14 Last Admin: 10/04/18 10:11 Dose: 30 mg Rivaroxaban (Xarelto) 15 mg PO DAILY@1800 [facility] Last Admin: 10/03/18 18:26 Dose: 15 mg Rosuvastatin Calcium (Crestor -) 10 mg PO HS [facility] Last Admin: 10/03/18 22:15 Dose: 10 mg Spironolactone (Aldactone -) 25 mg PO DAILY [facility] Last Admin: 10/04/18 10:11 Dose: 25 mg Last Vital Signs Temp Pulse Resp BP Pulse Ox 97.3 F L 88 16 115/84 95 10/04/18 11:34 10/04/18 11:34 10/04/18 11:34 10/04/18 11:34 10/03/18 21:00 CBC, BMP 10/03/18 14:45 10/04/18 07:00 Plan - renal function is improving - restart spironolactone tomorrow - monitor cbc - repeat bmp in am - pt has been off of fluids - avoid nsaids - avoid nephrotoxins
[2018-10-04] MEDS: RIVAROXABAN 15 MG TABLET PO SCH (17:18)
[2018-10-04] MEDS: ROSUVASTATIN CA 10 MG TABLET (FP) PO SCH (21:51)
[2018-10-05] MEDS ORDERED: PIPERACILLIN/TAZOBACTAM 2.25 GM VIAL IVPB ONE ×3 (02:03→16:43)
[2018-10-05] MEDS ORDERED: DEXTROSE 5%-WATER - 50 ML IVPB ONE ×3 (02:03→16:43)
[2018-10-05] MEDS: PIPERACILLIN/TAZOB 2.25 GM 2.25 GM in DEXTROSE 5%-WATER - 50 ML IVPB SCH ×3 (02:08→17:51)
[2018-10-05] MEDS ORDERED: ONDANSETRON 4 MG/2 ML VIAL IVPB PRN (05:52)
[2018-10-05] MEDS ORDERED: PT OWN MED DRAWER 7, Y5N ONE ×2 (08:53→21:13)
--- NOTE | 2018-10-05 09:21 | PN ---
Progress Note (short form) - Note Progress Note: nausea+ had no bm for a few days no abd pain Vital Signs - 24 hr 10/04/18 10/05/18 10/05/18 18:26 05:32 09:00 Temperature 97.6 F 97.8 F Pulse Rate 86 95 H Respiratory 20 20 Rate Blood Pressure 112/85 114/85 O2 Sat by Pulse 95 Oximetry (%) 10/05/18 10/05/18 10:00 14:44 Temperature 98.2 F Pulse Rate 92 H 82 Respiratory 20 20 Rate Blood Pressure 116/70 111/81 O2 Sat by Pulse Oximetry (%) Current Medications Generic Name Dose Route Start Last Admin Trade Name Freq PRN Reason Stop Dose Admin Acetaminophen 1,000 mg 10/03/18 13:37 Tylenol - PO Q6H PRN PAIN LEVEL 1-5 Amiodarone HCl 200 mg 10/04/18 10:00 10/05/18 09:53 Cordarone - PO 200 mg DAILY [facility] Administration Carvedilol 25 mg 10/01/18 11:45 10/05/18 09:52 Coreg - PO 25 mg BID [facility] Administration Guaifenesin 5 ml 10/03/18 13:37 10/03/18 22:25 Diabetic Tussin Dm - PO 5 ml Q6H PRN Administration COUGH Doxycycline Hyclate 100 mg/ 100 mls @ 50 mls/hr 10/03/18 22:00 10/05/18 09:52 Dextrose IVPB 50 mls/hr BID [facility] Administration Piperacillin Sod/Tazobactam 50 mls @ 100 mls/hr 10/03/18 18:00 10/05/18 17:51 Sod 2.25 gm/ Dextrose IVPB 100 mls/hr Q8H-IV [facility] Administration Protocol Ondansetron HCl 4 mg 10/05/18 05:52 10/05/18 05:58 Zofran Injection IVPB 4 mg Q6H PRN Administration NAUSEA Polyethylene Glycol 17 gm 10/05/18 10:00 10/05/18 09:52 Miralax (For Daily Use) - PO 17 gm BID [facility] Administration Rivaroxaban 15 mg 10/03/18 18:00 10/05/18 17:50 Xarelto PO 15 mg DAILY@1800 [facility] Administration Rosuvastatin Calcium 10 mg 10/01/18 22:00 10/04/18 21:51 Crestor - PO 10 mg HS [facility] Administration Spironolactone 25 mg 10/04/18 10:00 10/05/18 09:53 Aldactone - PO 25 mg DAILY [facility] Administration Laboratory Results - last 24 hr 10/05/18 10/05/18 11:25 16:53 POC Glucometer 139 129 S1 S2 RRR Lungs decreased Abd- soft, generalised tenderness, BS+ No edema PLAN sepsis improving stool softeners s/p PRBC and Granix, s/p platelets Cell count improved On iv antibiotics and empiric Tamiflu respiratory virus culture negative and urine antigens negative Physical therapy evaluation dc plan per ID Problem List - Problems (1) Pancytopenia Code(s): D61.818 - OTHER PANCYTOPENIA (2) Acute kidney injury superimposed on chronic kidney disease Code(s): N17.9 - ACUTE KIDNEY FAILURE, UNSPECIFIED; N18.9 - CHRONIC KIDNEY DISEASE, UNSPECIFIED (3) Anemia Code(s): D64.9 - ANEMIA, UNSPECIFIED Qualifiers: Anemia type: due to chronic kidney disease Chronic kidney disease stage: unspecified stage Qualified Code(s): N18.9 - Chronic kidney disease, unspecified; D63.1 - Anemia in chronic kidney disease (4) CAD (coronary artery disease) Code(s): I25.10 - ATHSCL HEART DISEASE OF [place] CORONARY ARTERY W/O ANG PCTRS Qualifiers: Coronary Disease-Associated Artery/Lesion type: [place] artery [place] vs. transplanted heart: [place] heart Associated angina: without angina Qualified Code(s): I25.10 - Atherosclerotic heart disease of [place] coronary artery without angina pectoris (5) Severe sepsis Code(s): A41.9 - SEPSIS, UNSPECIFIED ORGANISM; R65.20 - SEVERE SEPSIS WITHOUT SEPTIC SHOCK
[2018-10-05] MEDS: DOXYCYCLINE INJECTION 100 MG in DEXTROSE 5%-WATER - 100 ML IVPB SCH ×2 (09:52→21:41)
[2018-10-05] MEDS: CARVEDILOL 25 MG TABLET (FP) PO SCH ×2 (09:52→21:41)
[2018-10-05] MEDS: POLYETHYLENE GLYCOL 3350 119 GM BTL PO SCH ×2 (09:52→21:41)
[2018-10-05] MEDS: AMIODARONE HCL 200 MG TABLET (FP) PO SCH (09:53)
[2018-10-05] MEDS: OSELTAMIVIR PHOSPHATE 30 MG CAPSULE PO SCH (09:53)
[2018-10-05] MEDS: SPIRONOLACTONE 25 MG TABLET (FP) PO SCH (09:53)
--- NOTE | 2018-10-05 12:40 | PN ---
Progress Note (short form) - Note Progress Note: PULMONARY OOB TO CHAIR AWAITING DISCHARGE TOMORROW VSS/AFEBRILE Constitutional: Yes: Well Nourished, Calm Eyes: Yes: WNL HENT: Yes: WNL Neck: Yes: WNL Cardiovascular: Yes: Regular Rate and Rhythm, S1, S2 Respiratory: Yes: Rhonchi (SCATTERED DEACON RHONCHI) Gastrointestinal: Yes: Normal Bowel Sounds, Soft Extremities: Yes: WNL Edema: No Labs: REVIEWED Problem (13) Pulmonary HTN Code(s): I27.20 - PULMONARY HYPERTENSION, UNSPECIFIED (14) Pneumonia Code(s): J18.9 - PNEUMONIA, UNSPECIFIED ORGANISM Sepsis due to CAP improved History of severely reduced LV Function / global hypokinesis CHF S/P ICD AFIB CAD IDDM CKD Gout Pulmonary Htn Pancytopenia possibly due to sepsis Severe OSAS ABX per ID Tamiflu completed O2 as needed Rate control Follow final cultures Strict I & O Pain control monitor lytes,renal function monitor plt ct Will need formal CPAP re-titration after discharge DR COLLADO
--- NOTE | 2018-10-05 16:39 | PN ---
Progress Note, Physician History of Present Illness: AWAKE, ALERT SEATED IN BED FEELING WELL OFFERS NO COMPLAINTS TEMPS DOWN AFEBRILE WBC/PLT WNL C/S NEGATIVE - Current Medication List Current Medications: Active Medications Acetaminophen (Tylenol -) 1,000 mg PO Q6H PRN PRN Reason: PAIN LEVEL 1-5 Amiodarone HCl (Cordarone -) 200 mg PO DAILY [facility] Last Admin: 10/05/18 09:53 Dose: 200 mg Carvedilol (Coreg -) 25 mg PO BID [facility] Last Admin: 10/05/18 09:52 Dose: 25 mg Guaifenesin (Diabetic Tussin Dm -) 5 ml PO Q6H PRN PRN Reason: COUGH Last Admin: 10/03/18 22:25 Dose: 5 ml Doxycycline Hyclate 100 mg/ (Dextrose) 100 mls @ 50 mls/hr IVPB BID [facility] Last Admin: 10/05/18 09:52 Dose: 50 mls/hr Piperacillin Sod/Tazobactam (Sod 2.25 gm/ Dextrose) 50 mls @ 100 mls/hr IVPB Q8H-IV [facility]; Protocol Last Admin: 10/05/18 09:51 Dose: 100 mls/hr Ondansetron HCl (Zofran Injection) 4 mg IVPB Q6H PRN PRN Reason: NAUSEA Last Admin: 10/05/18 05:58 Dose: 4 mg Polyethylene Glycol (Miralax (For Daily Use) -) 17 gm PO BID [facility] Last Admin: 10/05/18 09:52 Dose: 17 gm Rivaroxaban (Xarelto) 15 mg PO DAILY@1800 [facility] Last Admin: 10/04/18 17:18 Dose: Not Given Rosuvastatin Calcium (Crestor -) 10 mg PO [facility] Last Admin: 10/04/18 21:51 Dose: 10 mg Spironolactone (Aldactone -) 25 mg PO DAILY [facility] Last Admin: 10/05/18 09:53 Dose: 25 mg - Objective Vital Signs: Vital Signs Temperature 98.2 F 10/05/18 14:44 Pulse Rate 82 10/05/18 14:44 Respiratory Rate 20 10/05/18 14:44 Blood Pressure 111/81 10/05/18 14:44 O2 Sat by Pulse Oximetry (%) 95 10/05/18 09:00 Constitutional: Yes: No Distress Eyes: Yes: Conjunctiva Clear Cardiovascular: Yes: Regular Rate and Rhythm, S1, S2 Respiratory: Yes: Rhonchi Gastrointestinal: Yes: Normal Bowel Sounds, Soft. No: Tenderness Edema: Yes Edema: LLE: 1+, RLE: 1+ Labs: CBC, BMP 10/03/18 14:45 10/04/18 07:00 INR, PTT INR 1.13 (0.83-1.09) H 10/03/18 07:18 Assessment/Plan PNEUMONIA / ETIOLOGY ? VIRAL SEPSIS SECONDARY TO PNEUMONIA RESOLVED PANCYTOPENIA IMPROVED AZOTEMIA COMPLETED TAMIFLU SWITCH TO DOXYCYCLINE 100MG PO BID X 7D IN AM
[2018-10-05] MEDS: RIVAROXABAN 15 MG TABLET PO SCH (17:50)
[2018-10-05] MEDS: ROSUVASTATIN CA 10 MG TABLET (FP) PO SCH (21:41)
--- NOTE | 2018-10-05 22:46 | PN ---
Progress Note (short form) - Note Progress Note: problems 1. CKD 2. ESTEVAN 3. sepsis 4. PNA 5. pancytopenia 6. CHF 7. a-fib 8. hypotension 9. gout 10. r/o influenza Current Medications Acetaminophen (Tylenol -) 1,000 mg PO Q6H PRN PRN Reason: PAIN LEVEL 1-5 Amiodarone HCl (Cordarone -) 200 mg PO DAILY [facility] Last Admin: 10/05/18 09:53 Dose: 200 mg Carvedilol (Coreg -) 25 mg PO BID [facility] Last Admin: 10/05/18 21:41 Dose: 25 mg Guaifenesin (Diabetic Tussin Dm -) 5 ml PO Q6H PRN PRN Reason: COUGH Last Admin: 10/03/18 22:25 Dose: 5 ml Doxycycline Hyclate 100 mg/ (Dextrose) 100 mls @ 50 mls/hr IVPB BID [facility] Last Admin: 10/05/18 21:41 Dose: 50 mls/hr Piperacillin Sod/Tazobactam (Sod 2.25 gm/ Dextrose) 50 mls @ 100 mls/hr IVPB Q8H-IV [facility]; Protocol Last Admin: 10/05/18 17:51 Dose: 100 mls/hr Ondansetron HCl (Zofran Injection) 4 mg IVPB Q6H PRN PRN Reason: NAUSEA Last Admin: 10/05/18 05:58 Dose: 4 mg Polyethylene Glycol (Miralax (For Daily Use) -) 17 gm PO BID [facility] Last Admin: 10/05/18 21:41 Dose: 17 gm Rivaroxaban (Xarelto) 15 mg PO DAILY@1800 [facility] Last Admin: 10/05/18 17:50 Dose: 15 mg Rosuvastatin Calcium (Crestor -) 10 mg PO HS [facility] Last Admin: 10/05/18 21:41 Dose: 10 mg Spironolactone (Aldactone -) 25 mg PO DAILY [facility] Last Admin: 10/05/18 09:53 Dose: 25 mg Last Vital Signs Temp Pulse Resp BP Pulse Ox 97.6 F 84 20 116/84 95 10/05/18 18:00 10/05/18 18:00 10/05/18 18:00 10/05/18 18:00 10/05/18 09:00 lungs clear heart reg abd soft nontender ext no edema CBC, BMP 10/03/18 14:45 10/04/18 07:00 Plan- check labs tomorrow
[2018-10-06] MEDS: PIPERACILLIN/TAZOB 2.25 GM 2.25 GM in DEXTROSE 5%-WATER - 50 ML IVPB SCH ×2 (02:31→09:25)
[2018-10-06] MEDS ORDERED: DEXTROSE 5%-WATER - 50 ML IVPB ONE ×2 (03:20→09:19)
[2018-10-06] MEDS ORDERED: PIPERACILLIN/TAZOBACTAM 2.25 GM VIAL IVPB ONE ×2 (03:20→09:19)
[2018-10-06 07:31] LABS: BASO % 1.9 % (0-2.0); EOS % 4.2 % (0-4.5); HEMOGLOBIN 9.5 GM/dL (11.7-16.9); LYMPH % 36.2 % (8-40); MCH 33.1 pg (25.7-33.7); MCHC 33.8 g/dl (32.0-35.9); MEAN PLT VOLUME 9.3 fl (7.5-11.1); MONO % 24.6 % (3.8-10.2); NEUT % 33.1 % (42.8-82.8); PLATELET COUNT 254 K/MM3 (134-434); RBC 2.86 M/mm3 (4.00-5.60); RDW 18.4 % (11.9-15.9)
[2018-10-06 07:51] LABS: ALBUMIN 2.6 g/dl (3.4-5.0); ALK PHOS 107 U/L (45-117); ANION GAP 7 MMOL/L (8-16); BILIRUBIN,TOTAL 0.7 mg/dL (0.2-1); BLOOD UREA NITROGEN 38 mg/dL (7-18); CHLORIDE 113 mmol/L (98-107); CO2 21 mmol/L (21-32); CREATININE 2.8 mg/dL (0.55-1.3); GLUCOSE,RANDOM 96 mg/dL (74-106); POTASSIUM 3.8 mmol/L (3.5-5.1); SGOT/AST 21 U/L (15-37); SGPT/ALT 27 U/L (13-61); SODIUM 142 mmol/L (136-145); TOT PROT 5.8 g/dl (6.4-8.2)
[2018-10-06] MEDS ORDERED: PT OWN MED DRAWER 7, Y5N ONE (09:19)
[2018-10-06] MEDS: SPIRONOLACTONE 25 MG TABLET (FP) PO SCH (09:25)
[2018-10-06] MEDS: CARVEDILOL 25 MG TABLET (FP) PO SCH (09:25)
[2018-10-06] MEDS: DOXYCYCLINE INJECTION 100 MG in DEXTROSE 5%-WATER - 100 ML IVPB SCH (09:25)
[2018-10-06] MEDS: AMIODARONE HCL 200 MG TABLET (FP) PO SCH (09:25)
[2018-10-06] MEDS: POLYETHYLENE GLYCOL 3350 119 GM BTL PO SCH (09:28)
[2018-10-06 10:12] LABS: ANISOCYTOSIS 1+; MACROCYTOSIS 1+; OVALOCYTE 1+; PLATELET ESTIMATE NORMAL
--- NOTE | 2018-10-06 10:44 | PN ---
Progress Note (short form) - Note Progress Note: pt seen/ examined chart reviewed awake/ comfortable denies pain afebrile Vital Signs Temp 97.9 F 10/06/18 05:27 Pulse 82 10/06/18 05:27 Resp 20 10/06/18 05:27 BP 112/64 10/06/18 05:27 Pulse Ox 95 10/05/18 09:00 Intake & Output 10/05/18 10/05/18 10/06/18 11:59 23:59 11:59 Intake Total 320 Balance 320 Intake: IVPB 200 Oral Supplement 120 Other: Voiding Method Toilet Toilet # Unmeasured Voids Void 3 3 3 Bowel Movement No No No Active Medications Acetaminophen (Tylenol -) 1,000 mg PO Q6H PRN PRN Reason: PAIN LEVEL 1-5 Amiodarone HCl (Cordarone -) 200 mg PO DAILY [facility] Last Admin: 10/06/18 09:25 Dose: 200 mg Carvedilol (Coreg -) 25 mg PO BID [facility] Last Admin: 10/06/18 09:25 Dose: 25 mg Doxycycline Hyclate (Vibramycin -) 100 mg PO BID@1000,1800 [facility] Guaifenesin (Diabetic Tussin Dm -) 5 ml PO Q6H PRN PRN Reason: COUGH Last Admin: 10/03/18 22:25 Dose: 5 ml Ondansetron HCl (Zofran Injection) 4 mg IVPB Q6H PRN PRN Reason: NAUSEA Last Admin: 10/05/18 05:58 Dose: 4 mg Polyethylene Glycol (Miralax (For Daily Use) -) 17 gm PO BID [facility] Last Admin: 10/06/18 09:28 Dose: 17 gm Rivaroxaban (Xarelto) 15 mg PO DAILY@1800 [facility] Last Admin: 10/05/18 17:50 Dose: 15 mg Rosuvastatin Calcium (Crestor -) 10 mg PO HS [facility] Last Admin: 10/05/18 21:41 Dose: 10 mg Spironolactone (Aldactone -) 25 mg PO DAILY [facility] Last Admin: 10/06/18 09:25 Dose: 25 mg CBC, BMP 10/06/18 06:35 10/06/18 06:35 Physical Exam. S1 S2 RRR Lungs decreased at bases Abd- soft, non tender , BS+ No edema PLAN much better sepsis/ viral sysndrome Pneumonia stool softeners s/p PRBC and Granix, s/p platelets Cell count improved but wbc down today respiratory virus culture negative and urine antigens negative discussed with Dr. Gee today -- Stable for d/c home on po abx with close f/u of cbc as out pt Repeat cxr in 4 weeks -- Document clearing of pneumonia Discussed in detail with pt agree with plan will d/c home
--- NOTE | 2018-10-06 10:48 | DS ---
Physical Examination Vital Signs: Vital Signs Temperature 97.9 F 10/06/18 05:27 Pulse Rate 82 10/06/18 05:27 Respiratory Rate 20 10/06/18 05:27 Blood Pressure 112/64 10/06/18 05:27 O2 Sat by Pulse Oximetry (%) 95 10/05/18 09:00 Findings/Remarks: see today progress note Labs: CBC, BMP 10/06/18 06:35 10/06/18 06:35 Discharge Summary Reason For Visit: FEVER DM ANEMIA CHRONIC KIDNEY DISEASE HYPOTENSION Current Active Problems Acute kidney injury superimposed on chronic kidney disease (Acute) Anemia (Acute) CAD (coronary artery disease) (Acute) Cardiomyopathy (Acute) Chronic kidney disease (Acute) Diabetes (Acute) Fever (Acute) HLD (hyperlipidemia) (Acute) Hypotension (Acute) ICD (implantable cardioverter-defibrillator) in place (Acute) IDDM (insulin dependent diabetes mellitus) (Acute) Multiple nodules of lung (Acute) Pancytopenia (Acute) Paroxysmal A-fib (Acute) Pneumonia (Acute) Pulmonary HTN (Acute) Severe sepsis (Acute) Thrombocytopenia (Acute) Hospital Course: Pt with extensive pmhx as documented admitted for Neutropenic sepsis Pancytopenia Acute on ckd treated with abx/ tamiflu got neupogen ct scan -- Pneumonia renal/ i/d and hematology followed now better stable for d/c meds reconcilled need close f/u with pmd-- repeat cbc in 2- 3days f/u cxr in 4 weeks Pt in agreement abx - send to pharmacy d/c time approx 35 min in examining / documenting and coordating care Condition: Fair - Instructions Referrals: Portillo Ashford MD [Primary Care Provider] - Disposition: HOME - Home Medications Comprehensive Discharge Medication List: Ambulatory Orders Amiodarone HCl 200 mg PO DAILY 10/12/16 Carvedilol [Coreg] 25 mg PO BID 10/12/16 Rivaroxaban [Xarelto] 15 mg PO DAILY 10/12/16 Spironolactone 25 mg PO DAILY 10/12/16 Insulin Degludec [Tresiba Flextouch U-100] 40 unit SQ DAILY 11/13/16 Colchicine 0.6 mg PO DAILY 09/30/18 Rosuvastatin [Crestor -] 10 mg PO DAILY 09/30/18 Sacubitril/Valsartan [Entresto 49 mg-51 mg Tablet] 1 each PO BID 09/30/18 Doxycycline Hyclate [Vibramycin -] 100 mg PO BID@1000,1800 #14 capsule 10/06/18 Polyethylene Glycol 3350 [Miralax 119 gm Btl -] 17 gm PO BID bottle 10/06/18 Rosuvastatin [Crestor -] 10 mg PO HS tablet 10/06/18
--- NOTE | 2018-10-06 10:56 | PN ---
Progress Note (short form) - Note Progress Note: PULMONARY Breathing continues to improve. +cough with yellow/clear sputum. No fevers. Vital Signs Period Temp Pulse Resp BP Sys/F[place]man Pulse Ox Last 24 Hr 97.6 F-98.2 F 82-84 20-20 111-116/64-84 Gen: NAD in chair Heart: RRR Lung: decreased breath sounds at the bases Abd: soft, nontender Ext: no edema CBC, BMP 10/06/18 06:35 10/06/18 06:35 Active Medications Acetaminophen (Tylenol -) 1,000 mg PO Q6H PRN PRN Reason: PAIN LEVEL 1-5 Amiodarone HCl (Cordarone -) 200 mg PO DAILY [facility] Last Admin: 10/06/18 09:25 Dose: 200 mg Carvedilol (Coreg -) 25 mg PO BID [facility] Last Admin: 10/06/18 09:25 Dose: 25 mg Doxycycline Hyclate (Vibramycin -) 100 mg PO BID@1000,1800 [facility] Guaifenesin (Diabetic Tussin Dm -) 5 ml PO Q6H PRN PRN Reason: COUGH Last Admin: 10/03/18 22:25 Dose: 5 ml Ondansetron HCl (Zofran Injection) 4 mg IVPB Q6H PRN PRN Reason: NAUSEA Last Admin: 10/05/18 05:58 Dose: 4 mg Polyethylene Glycol (Miralax (For Daily Use) -) 17 gm PO BID [facility] Last Admin: 10/06/18 09:28 Dose: 17 gm Rivaroxaban (Xarelto) 15 mg PO DAILY@1800 [facility] Last Admin: 10/05/18 17:50 Dose: 15 mg Rosuvastatin Calcium (Crestor -) 10 mg PO [facility] Last Admin: 10/05/18 21:41 Dose: 10 mg Spironolactone (Aldactone -) 25 mg PO DAILY [facility] Last Admin: 10/06/18 09:25 Dose: 25 mg A/P Pneumonia Pancytopenia Severe LV Systolic Dysfunction s/p ICD Paroxysmal Atrial Fibrillation Acute on Chronic Renal Failure HTN DM GAY - complete antibiotics - rate controlled - continue anticoagulation - outpt f/u for GAY
[2018-10-06 12:48] VITALS: BP 110/74; PULSE 81; TEMP 97.8
--- NOTE | 2018-10-06 13:10 | PN ---
Progress Note, Physician History of Present Illness: Dyspnea improving, non-productive cough, remains afebrile. - Current Medication List Current Medications: Active Medications Acetaminophen (Tylenol -) 1,000 mg PO Q6H PRN PRN Reason: PAIN LEVEL 1-5 Amiodarone HCl (Cordarone -) 200 mg PO DAILY [facility] Last Admin: 10/06/18 09:25 Dose: 200 mg Carvedilol (Coreg -) 25 mg PO BID [facility] Last Admin: 10/06/18 09:25 Dose: 25 mg Doxycycline Hyclate (Vibramycin -) 100 mg PO BID@1000,1800 [facility] Guaifenesin (Diabetic Tussin Dm -) 5 ml PO Q6H PRN PRN Reason: COUGH Last Admin: 10/03/18 22:25 Dose: 5 ml Ondansetron HCl (Zofran Injection) 4 mg IVPB Q6H PRN PRN Reason: NAUSEA Last Admin: 10/05/18 05:58 Dose: 4 mg Polyethylene Glycol (Miralax (For Daily Use) -) 17 gm PO BID [facility] Last Admin: 10/06/18 09:28 Dose: 17 gm Rivaroxaban (Xarelto) 15 mg PO DAILY@1800 [facility] Last Admin: 10/05/18 17:50 Dose: 15 mg Rosuvastatin Calcium (Crestor -) 10 mg PO HS [facility] Last Admin: 10/05/18 21:41 Dose: 10 mg Spironolactone (Aldactone -) 25 mg PO DAILY [facility] Last Admin: 10/06/18 09:25 Dose: 25 mg - Objective Vital Signs: Vital Signs Temperature 97.8 F 10/06/18 10:00 Pulse Rate 81 10/06/18 10:00 Respiratory Rate 18 10/06/18 10:00 Blood Pressure 110/74 10/06/18 10:00 O2 Sat by Pulse Oximetry (%) 95 10/06/18 09:00 Constitutional: Yes: No Distress, Calm Neck: Yes: Supple Cardiovascular: Yes: Regular Rate and Rhythm Respiratory: Yes: Regular, Diminished, On Nasal O2 Gastrointestinal: Yes: Normal Bowel Sounds, Soft, Abdomen, Obese Edema: Yes Edema: LLE: 1+, RLE: 1+ Labs: CBC, BMP 10/06/18 06:35 10/06/18 06:35 INR, PTT INR 1.13 (0.83-1.09) H 10/03/18 07:18 Problem List - Problems (1) ICD (implantable cardioverter-defibrillator) in place Code(s): Z95.810 - PRESENCE OF AUTOMATIC (IMPLANTABLE) CARDIAC DEFIBRILLATOR (2) Acute kidney injury superimposed on chronic kidney disease Code(s): N17.9 - ACUTE KIDNEY FAILURE, UNSPECIFIED; N18.9 - CHRONIC KIDNEY DISEASE, UNSPECIFIED (3) CAD (coronary artery disease) Code(s): I25.10 - ATHSCL HEART DISEASE OF [place] CORONARY ARTERY W/O ANG PCTRS Qualifiers: Coronary Disease-Associated Artery/Lesion type: [place] artery [place] vs. transplanted heart: [place] heart Associated angina: without angina Qualified Code(s): I25.10 - Atherosclerotic heart disease of [place] coronary artery without angina pectoris (4) HLD (hyperlipidemia) Code(s): E78.5 - HYPERLIPIDEMIA, UNSPECIFIED Qualifiers: Hyperlipidemia type: pure hypercholesterolemia Qualified Code(s): E78.00 - Pure hypercholesterolemia, unspecified; E78.0 - Pure hypercholesterolemia (5) IDDM (insulin dependent diabetes mellitus) Code(s): E11.9 - TYPE 2 DIABETES MELLITUS WITHOUT COMPLICATIONS; Z79.4 - [employer] (CURRENT) USE OF INSULIN (6) Paroxysmal A-fib Code(s): I48.0 - PAROXYSMAL ATRIAL FIBRILLATION (7) Severe sepsis Code(s): A41.9 - SEPSIS, UNSPECIFIED ORGANISM; R65.20 - SEVERE SEPSIS WITHOUT SEPTIC SHOCK Assessment/Plan 1. Community acquired pneumonia with sepsis syndrome, ? flu 2. Resolving pancytopenia due to marrow suppression 3. LV systolic dysfunction with severely reduced LVEF 4. Acute on chronic class 2-3 NYHA classification systolic LV failure 5. ICD 6. PAF on DOAC (Xarelto), [id number] score of 4 7. DM 8. HTN 9. Hypercholesterolemia 10. Acute on CKD 11. Severe OSAS PLAN: 1. Complete antibiotic course and O2 as needed 2. Continue Amiodarone 200 mg QD, Carvedilol 25 mg BID, and Crestor 10 mg QHS 3. Entresto has been held pending renal function stabilization, Aldactone 25 qd resumed with caution 4. Resumed Xarelto 15 qd 5. Outpt f/u for GAY
[2018-10-06] MEDS ORDERED: DOXYCYCLINE HYCLATE 100 MG CAPSULE PO SCH (18:00)
== END 2018-10-06 14:12 | disposition home health service (06) | DRG 871 ==
LOC: JER 19:02 → JERBED 09-30 02:06 → JICU 09-30 02:54 → J4W 10-01 18:49 → J6S 10-03 12:48
PROVIDERS: ADMIT Internal Medicine; ATTEND Internal Medicine
PROC: 30233N1 Transfusion of Nonautologous Red Blood Cells into Peripheral Vein, Percutaneous Approach (ICD-10-PCS; principal; 2018-09-30)
PROC: 30233R1 Transfusion of Nonautologous Platelets into Peripheral Vein, Percutaneous Approach (ICD-10-PCS; 2018-10-01)
DX: A41.89 Other specified sepsis (principal); J18.9 Pneumonia, unspecified organism; I50.33 Acute on chronic diastolic (congestive) heart failure; I42.8 Other cardiomyopathies; N17.9 Acute kidney failure, unspecified; D61.818 Other pancytopenia; I13.0 Hypertensive heart and chronic kidney disease with heart failure and stage 1 through stage 4 chronic kidney disease, or unspecified chronic kidney disease; I95.9 Hypotension, unspecified; R65.20 Severe sepsis without septic shock; R00.0 Tachycardia, unspecified; I48.0 Paroxysmal atrial fibrillation; E11.22 Type 2 diabetes mellitus with diabetic chronic kidney disease; N18.9 Chronic kidney disease, unspecified; E78.5 Hyperlipidemia, unspecified; I34.0 Nonrheumatic mitral (valve) insufficiency; R91.8 Other nonspecific abnormal finding of lung field; M10.9 Gout, unspecified; I25.10 Atherosclerotic heart disease of native coronary artery without angina pectoris; E66.9 Obesity, unspecified; I44.7 Left bundle-branch block, unspecified; Z68.34 Body mass index [BMI] 34.0-34.9, adult; D69.6 Thrombocytopenia, unspecified; G47.33 Obstructive sleep apnea (adult) (pediatric); D50.9 Iron deficiency anemia, unspecified; I27.20 Pulmonary hypertension, unspecified; B34.9 Viral infection, unspecified; D63.1 Anemia in chronic kidney disease; Z79.4 Long term (current) use of insulin; I25.2 Old myocardial infarction; Z95.0 Presence of cardiac pacemaker; Z87.891 Personal history of nicotine dependence
CPT/HCPCS: 36415; 36430; 36600; 71045-TC-FY; 71250-TC; 74176-TC; 76775-TC; 76856-TC; 80048; 80053; 80162; 81003; 82009; 82272; 82375; 82436; 82570; 82607; 82728; 82746; 82784; 82803; 82962; 83021; 83050; 83540; 83550; 83605; 83735; 83930; 83935; 84100; 84133; 84155; 84156; 84157; 84165; 84300; 84484; 84540; 85025; 85027; 85610; 85660; 85730; 86359; 86360; 86850; 86900; 86901; 86922; 87040; 87070; 87086; 87205; 87389; 87633; 87804; 87880; 87899; 88300-TC; 93005; 93010; 93306-TC; 97116-GP; 97161-GP; 99285-25; J0131; J0885; J1447; J1756; J7030; P9034; P9038; P9058